=== PATIENT | female | born 1965 | race Asian ===

== ENCOUNTER 2022-03-07 09:42 | Outpatient (REF) | payer OTHER, SELFPAY ==
[2022-03-07 11:38] LABS: Hematocrit 39.2 % (37.0-47.0); Hemoglobin 12.6 g/dl (12.0-16.0); Mean Corpuscular HGB Conc 32.1 g/dl (31.0-35.0); Mean Corpuscular Hemoglobin 29.6 pg (27.0-33.0); Mean Corpuscular Volume 92.2 fL (80.0-98.0); Mean Platelet Volume 10.2 fL (9.4-12.3); Platelet Count 210 X10*3/uL (160-400); Red Blood Count 4.25 X10*6/uL (4.20-5.50); White Blood Count 3.5 X10*3/uL (4.8-10.8)
[2022-03-07 11:58] LABS: Alanine Aminotransferase 28 U/L (0-31); Albumin Level 4.1 g/dL (3.5-5.0); Alkaline Phosphatase 46 U/L (39-117); Anion Gap 12 (12-20); Aspartate Amino Transferase 24 U/L (5-31); Bilirubin Total 0.3 mg/dL (0.0-1.0); Blood Urea Nitrogen 15 mg/dL (9-16); Calcium 9.3 mg/dL (8.4-10.2); Carbon Dioxide 25 mmol/L (22-29); Chloride 108 mmol/L (96-108); Cholesterol 163 mg/dL; Estimated Glomerular Filt Rate > 60; Glucose Fasting 102 mg/dL (60-99); HDL Cholesterol 33 mg/dL; LDL Cholesterol Calculated 109 mg/dl; Potassium 3.9 mmol/L (3.3-5.1); Sodium 141 mmol/L (135-145); Total Protein 7.1 g/dL (6.5-8.0); Triglycerides 108 mg/dL
[2022-03-07 12:01] LABS: TSH reflex Free T4 1.41 uIU/mL (0.32-4.0)
== END 2022-03-07 09:43 | disposition home or self-care (01) ==
LOC: HO.WFDLDS 09:42
PROVIDERS: Visit Provider Hospitalist
DX: Z00.00 Encounter for general adult medical examination without abnormal findings (principal)
CPT/HCPCS: 36415; 80053; 80061; 84443; 85027

== ENCOUNTER 2022-09-20 09:05 | Outpatient (REF) | payer OTHER, SELFPAY ==
--- NOTE | ~2022-09-20 | MM_ITS ---
EXAMINATION: MM SCREENING DIGITAL BREAST TOMOSYNTHESIS, BILATERAL CLINICAL INFORMATION: Screening. Asymptomatic. Prior [id number] mammography currently unavailable. The lifetime risk of breast cancer based on the Tyrer-Cuzick Model is 3%. COMPARISON: None. TECHNIQUE: Digital breast tomosynthesis is performed in both the craniocaudal and mediolateral oblique views along with computer-aided detection (CAD). Synthesized 2D images are generated from the tomosynthesis. Additional exaggerated right CC view is provided. FINDINGS: The breasts are heterogeneously dense, which may obscure small masses (ACR BI-RADS breast composition Category c). There are no significant masses, abnormal calcifications, or other abnormalities. Breast tissue composition borders on average fibroglandular. No architectural abnormality. The axilla and skin contours are unremarkable. Radiology department staff will attempt to retrieve prior qde-ta-[id number] mammography to allow for comparison in an addendum report. MM/MM tomosynthesis screening BI IMPRESSION: No mammographic evidence of malignancy. ASSESSMENT: BI-RADS 1: Negative RECOMMENDATION: 1. Routine annual mammography screening. 2. Radiology department staff will attempt to retrieve prior tua-pv-[id number] mammography to allow for comparison in an addendum report. This patient's information was entered into a reminder system with a target due date for their next mammogram.
== END 2022-09-20 09:06 | disposition home or self-care (01) ==
LOC: HO.MAMMO 09:05
PROVIDERS: PCP Hospitalist; Visit Provider Hospitalist
DX: Z12.31 Encounter for screening mammogram for malignant neoplasm of breast (principal)
CPT/HCPCS: 77063; 77067

== ENCOUNTER 2023-02-08 09:55 | Outpatient (REF) | payer OTHER, SELFPAY ==
[2023-02-08 11:20] LABS: Hematocrit 38.6 % (37.0-47.0); Hemoglobin 12.5 g/dl (12.0-16.0); Mean Corpuscular HGB Conc 32.4 g/dl (31.0-35.0); Mean Corpuscular Hemoglobin 29.6 pg (27.0-33.0); Mean Corpuscular Volume 91.5 fL (80.0-98.0); Mean Platelet Volume 9.3 fL (9.4-12.3); Platelet Count 268 X10*3/uL (160-400); Red Blood Count 4.22 X10*6/uL (4.20-5.50); Red Cell Distribution Width 12.2 % (11.0-16.0); White Blood Count 4.9 X10*3/uL (4.8-10.8)
[2023-02-08 11:56] LABS: Alanine Aminotransferase 25 U/L (0-31); Albumin Level 4.1 g/dL (3.5-5.0); Alkaline Phosphatase 54 U/L (39-117); Anion Gap 13 (12-20); Aspartate Amino Transferase 22 U/L (5-31); Bilirubin Total 0.4 mg/dL (0.0-1.0); Blood Urea Nitrogen 22 mg/dL (9-16); Carbon Dioxide 24 mmol/L (22-29); Chloride 110 mmol/L (96-108); Estimated Glomerular Filt Rate > 60; Glucose Fasting 99 mg/dL (60-99); Potassium 3.8 mmol/L (3.3-5.1); Sodium 143 mmol/L (135-145); Total Protein 6.7 g/dL (6.5-8.0)
[2023-02-08 12:35] LABS: Troponin-I High Sensitivity < 3.5 ng/L (<3.5-17.0)
== END 2023-02-08 09:56 | disposition home or self-care (01) ==
LOC: HO.WFDLDS 09:55
PROVIDERS: Visit Provider Nurse Practitioner Family
DX: R07.9 Chest pain, unspecified (principal)
CPT/HCPCS: 36415; 80053; 84484; 85027

== ENCOUNTER → 2023-02-19 08:01 | Outpatient (REF) | payer OTHER, SELFPAY ==
--- NOTE | 2023-02-19 08:04 | CA_ITS ---
Acquisition Time: 2023-02-19 08:30:11 Total Exercise Time: 00:07:00 Test Indications: CP Medications: LOSARTAN OMEPRAZOLE DOXYCYCLINE Protocol: PILY Max HR: 144 BPM 89% of Pred: 161 BPM Max BP: 184/088 mmHG Max Work Load: 8.5 METS Exercise stress test with exercise 7 min of Pily protocol, achieving 82% MPHR, with mild sob, no chest discomfort, with isolated PACs and atrial cuplets, with normotensive response to exercise, with anteriolateral T wave abnormalities at baseline, without EKG changes of ischemia at peak achieved workload, then in recovery there are new T wave inversions inferiorly which are not seen at baseline - equivocal for ischemia. Test reviewed with Dr Short. Message sent to PCP and informed of test results with recommendation for an exercise nuclear stress test for further evaulation. Referred By: Isha Calvert Overread By: JEREMY DIAZ
== END ==
LOC: HO.CARD 08:01
PROVIDERS: PCP Hospitalist; Visit Provider Nurse Practitioner Family
DX: R07.9 Chest pain, unspecified (principal)
CPT/HCPCS: 93017

== ENCOUNTER → 2023-03-05 08:05 | Outpatient (REF) | payer OTHER, SELFPAY ==
--- NOTE | ~2023-03-05 | NM_ITS ---
EXERCISE MYOCARDIAL PERFUSION STUDY INDICATION: Abnormal stress test, assess for ischemia TECHNIQUE: The patient was brought in for an exercise perfusion study on 03/05/2023. Patient performed exercise as per Benito protocol and was injected 25 mCi of sestamibi once target heart rate was achieved. Images were obtained using the SPECT gamma camera interlaced with the gating device. Images were obtained in supine position. Resting perfusion study was performed on 03/06/2023. Patient was administered 25 mCi of sestamibi intravenously at rest. Images were then obtained in supine position. Images were processed with the software and compared side to side in short axis, horizontal long axis and vertical long axis views. Total DLP 87mGy-cm. FINDINGS: Raw images were reviewed. The stress perfusion study showed no significant perfusion abnormality. Both uncorrected as well as CT attenuation corrected images were reviewed. The gated study shows normal LV systolic function with calculated LVEF of 66%. LV cavity is normal in size. The gated study shows normal wall thickening and contraction of segments. Resting study shows no significant perfusion abnormality. Gating at rest reveals normal wall motion with ejection fraction at > 70%. The findings are consistent with no clear reversible or fixed perfusion abnormality. NM/NM cardiolite stress test IMPRESSION: 1. Myocardial perfusion imaging study shows normal myocardial perfusion. 2. Gated LVEF is 66% during stress and >70% during rest. 3. Transient ischemic dilatation not present. EKG component of the test reported separately.
--- NOTE | 2023-03-05 08:08 | CA_ITS ---
Acquisition Time: 2023-03-05 08:28:40 Total Exercise Time: 00:09:00 Test Indications: ABN ETT Medications: SEE H Protocol: PILY Max HR: 139 BPM 86% of Pred: 161 BPM Max BP: 178/088 mmHG Max Work Load: 10.1 METS Exercise stress test with exercise 9 min of Pily protocol, achieving 86% MPHR, with mild sob, no chest discomfort, with isolated PACs and atrial cuplets, with normotensive response to exercise, with baseline EKG showing nonspecific ST/ T wave abnormalities in leads III, aVF, V3-V6 without ischemic changes at peak exercise with return of baseline findings in recovery - nondiagnostic. Nuclear images pending. Test reviewed with Dr Barboza Referred By: Beba Loera Overread By: JEREMY DIAZ
== END ==
LOC: HO.CARD 08:05
PROVIDERS: Visit Provider Hospitalist
DX: R94.39 Abnormal result of other cardiovascular function study (principal)
CPT/HCPCS: 78452; 93017; A9500

== ENCOUNTER 2023-06-04 14:31 | Outpatient (AMB) | payer MEDICAID, SELFPAY ==
--- NOTE | 2023-06-04 14:38 | MHC.OFFVIS ---
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 Intake Note: New patient dx bradycardia per patient has history of HTN was told need to be clearances for colonoscopy had chest pain for doing new exercise which has gone away Adjunct Writing Instructor Required: Yes Adjunct Writing Instructor Name: daughter Eeg Tech: Eeg Tech Present Accompanied by: Daughter Allergies Iodine and Iodide Containing Produc Adverse Reaction (Mild, Verified 03/08/23 09:05) Hives Medication List - Last Reconciled 06/04/23 by Miguel Barboza MD bisacodyl (Dulcolax (bisacodyl)) 10 mg (2 x 5 mg) PO ONCE 1 day blood pressure monitor check bp daily and as needed for feeling off or headache losartan 100 mg PO DAILY omeprazole 20 mg PO DAILY 42 days polyethylene glycol 3350 (Miralax) 238 grams PO ONCE 1 day HPI HPI Comments History of Present Illness Details Mrs Morales was referred here for abnormal stress test and prior history of chest pain. Patient 58-year-old female with prior history of hypertension, in generally good shape. She is accompanied by her daughter Susana professor of criminal justice. Declined a certified professor of criminal justice. Patient few months ago was having retrosternal chest pain. Pain was described as sharp pressure. Pain was associated with exercise but usually in the recovery phase. P will then dissipate. She was also noted at that time to have hypertension. She was subsequently referred for stress test. Initial regular treadmill stress test was abnormal with baseline EKG changes which got worse with exercise. She subsequently underwent a myocardial perfusion imaging which was negative for myocardial ischemia. Since then for the last 4-6 weeks she has not had any recurrent chest pain. She thinks this might be musculoskeletal chest pain related to a fall with exercise. She is not doing that kind of exercise again. She continues to go up for walks and do other stretching exercises without any chest discomfort. Her EKG done in the office is suggestive hypertensive heart disease. She has not had a formal echocardiogram. She is currently taking losartan for high blood pressure blood pressure is better controlled. Denies any symptoms of shortness of breath, orthopnea, PND. No symptoms of palpitations, lightheadedness, syncope. She is scheduled to undergo colonoscopy in near future [facility] Medical History (Updated 06/04/23 @ 15:05 by Miguel Barboza MD) HTN (hypertension) Social History Housing: House Patient Tobacco Use Status: Never used Tobacco e-Cigarette/Vaping Use: Never Used service: No Current occupational status: retired Current occupational exposures/hazards: No Cognitive needs: No Hearing needs: No Vision needs: Yes Review of Systems Const Denies chills, Denies fatigue, Denies fever(s), Denies frequent falls, Denies weakness, Denies weight gain and Denies weight loss Eyes Denies loss of vision ENT Denies dizziness Card Denies chest pain, Denies leg edema, Denies lightheadedness, Denies palpitations, Denies dyspnea, Denies dyspnea on exertion, Denies orthopnea and Denies other (loss of consciousness) Resp Denies cough, Denies dyspnea, Denies dyspnea on exertion and Denies wheezing GI Denies hematochezia and Denies change in stool character Denies urinary frequency and Denies dysuria Musc Denies abnormal gait, Denies muscle weakness, Denies numbness, Denies radiating pain into limb and Denies tingling Skin/Breast Denies nail changes and Denies rash Neuro Denies Abnormal speech present, Denies abnormal gait, Denies dizziness, Denies frequent falls, Denies loss of vision, Denies memory loss, Denies numbness, Denies tingling and Denies weakness Psych Denies depression and Denies memory loss Endo Denies fatigue and Denies palpitations Rolly/Lymph Reports easy bruising and Reports other (anemia) Aller/Immun Denies wheezing Physical Exam Vital Signs: Last Vital Signs Pulse 70 06/04/23 14:39 BP 120/70 06/04/23 14:39 BMI result Body Mass Index 23.7 Const General: cooperative, comfortable, no acute distress, well developed, alert, awake and Physically active Nutritional Appearance: thin Orientation/consciousness: patient oriented x3 Limitations: no limitations HEENT Head: Yes normocephalic and Yes atraumatic Neck Neck: Yes trachea midline, Yes supple and Yes no JVD Resp Effort & Inspection: normal respiratory effort Auscultation: clear to auscultation bilaterally Cardio Jugular venous distension: no JVD Palpation: normal PMI Rate: regular rate Rhythm: regular rhythm Heart sounds: S1 normal heart sound present, S2 normal heart sound present, no click, no gallops, no murmurs and no rubs GI Auscultation: normal bowel sounds Skin General skin exam: no rashes or lesions noted Neuro General: patient oriented x3 and no focal motor deficits Speech: No Abnormal speech present Extrem General: Yes no clubbing, cyanosis or edema Assessment & Plan Assessment & Plan (1) Chest pain: Code(s): R07.9 - Chest pain, unspecified Plan: Patient with prior history of retrosternal/precordial chest pain. Could be musculoskeletal related to exercise. Also could be related hypertension and now the pain is dissipated since better control of her chest pain. Her myocardial perfusion imaging is negative and this rules out ischemic etiology of her chest pain. Good prognosis with this was discussed with the daughter. (2) HTN (hypertension): Code(s): I10 - Essential (primary) hypertension Plan: Hypertension which is currently well optimized continue current therapy. Importance of good blood pressure control in the long run to reduce cardiovascular risk was discussed. Continue low-salt diet. Given her baseline EKG suggestive hypertensive heart disease, would suggest echocardiogram to assess for hypertensive heart disease and associated diastolic dysfunction. (3) Preoperative cardiovascular examination: Code(s): Z01.810 - Encounter for preprocedural cardiovascular examination Plan: Patient scheduled for colonoscopy which is considered low risk procedure. A myocardial perfusion imaging was within normal limits. She has good exercise capacity. She is currently optimized to undergo the procedure with low risk for perioperative cardiovascular morbidity mortality. Will follow up in the clinic if need be. Thank you for allowing me to partake in the care Coding Level of Care Code New Pt Level 4 (29535) Diagnoses Chest pain R07.9 HTN (hypertension) I10 Preoperative cardiovascular examination Z01.810
[2023-06-04 14:39] VITALS: BP 120/70; PULSE 70; BMI 23.7
== END 2023-06-04 15:02 | disposition home or self-care (01) ==
PROVIDERS: PCP Hospitalist; Referring Provider Nurse Practitioner Family; Visit Provider Internal Medicine Cardiovascular Disease
DX: R07.9 Chest pain, unspecified (principal); I10 Essential (primary) hypertension; Z01.810 Encounter for preprocedural cardiovascular examination
CPT/HCPCS: 99204

== ENCOUNTER → 2023-06-04 14:31 | Outpatient (BNVA) | payer MEDICAID, SELFPAY | PROVIDERS: PCP Hospitalist; Referring Provider Nurse Practitioner Family; Visit Provider Internal Medicine Cardiovascular Disease | DX: R07.9 Chest pain, unspecified (principal); I10 Essential (primary) hypertension | CPT/HCPCS: 99202 ==

== ENCOUNTER 2023-06-21 07:36 | Day surgery (SDC) | payer OTHER, SELFPAY ==
[2023-06-18 15:36] VITALS: BMI 23.7
[2023-06-21] MEDS: Lactated Ringers 1,000 ML 50 ML IVCONT (08:18)
[2023-06-21 08:19] VITALS: BP 150/76; PULSE 55; RESP 18; TEMP 36.7; O2SAT 97
--- NOTE | 2023-06-21 08:43 | P.HPSUR_ITS ---
Pre-Procedural Eval Section A Date of Service: 06/21/23 Section B Chief Complaint: Personal hx of poylps Details of Present Illness: 58 y.o F with last colo 5y ago in [facility]. Currently no GI related sx. Cleared from Cardiology as well. Relevant Social History: None Present Medications: see Short Stay Collaborative assessment Allergies: Allergies Allergy/AdvReac Type Severity Reaction Status Date / Time Iodine and Iodide Containing AdvReac Mild Hives Verified 06/21/23 07:58 Produc Review of Systems Review of Systems Comment: Ten point ROS negative Exam Exam Comment: Gen appear: No acute distress HEENT: no icterus Chest: No overt resp distress Abd: soft, nontender, nondistended Psych: Stable affect, answering questions appropriately Neuro: A/Ox3 noted to move all extremities spontaneously Ext: no peripheral edema Plan Diagnosis/Plan: Unchanged I have reviewed the history and physical and performed a pertinent physical examination on my patient. No changes have occurred unless specified. Time Spent With Patient Time: Total time managing care of this patient today ____ minutes.
--- NOTE | 2023-06-21 08:45 | W.PM.OPN ---
Operative Note Operative Note Date of Service: 06/21/23 Narrative: Procedure: Colonoscopy Indication: Personal history of polyps Endoscopist: Rebecca Li MD Anesthesia Provider: Emelina Dalton MD Anesthesia type: MAC Instrument: Olympus [id number]-[id number] Consent: Indication, risks vs benefits, and alternatives were discussed with the patient who gave written informed consent to proceed. An channel cementer insole machine was utilized to assist with the consent. EKG, pulse, pulse oximetry and blood pressure were monitored throughout the procedure. Please see anesthesia flowsheet. Procedure: The patient was brought to the procedure room and placed in the left lateral decubitus position. IV medications were administered by the anesthesia provider in attendance. A digital rectal exam was performed which was normal. A distal attachment cap was affixed to the tip of the scope and the colonoscope was then inserted through the anus and advanced through the colon to the cecum at 80 cm. Mucosa was carefully examined under high definition white light as the instrument was slowly withdrawn in a retrograde panoramic fashion. Retroflexion was performed in rectum. The procedure was not difficult. There were no immediate obvious complications. The quality of the prep was BBPS: 2+3+3 = adequate Withdrawal time 12 minutes. Limitations: No limitations. Findings: Mucosa: Normal to cecum. Protruding lesions: 2 sessile polyp of size 4-7 mm in sigmoid colon. Cold snare polypectomy was performed. The polyps were completely removed and retrieved. Medium internal hemorrhoids without stigmata of recent bleeding. Impression: 1. Normal colon mucosa 2. Total of 2 polyps removed from sigmoid colon. 3. Internal hemorrhoids Recommendations: - Follow path results. - Repeat colonoscopy in 7-10 years if polyps are adenomas.
--- NOTE | 2023-06-21 09:10 | HO.ANESPROP2 ---
HPI - Anesthesia Eval Consult details Narrative: personal ho polyp cardic cleasance on chart negative nuclear stress; changes felt to be secondary to Htn disease, Htn now better controlled on meds PMFSH Active Problems Active Problems: All Active Problems (Updated 06/04/23 @ 15:05 by Miguel Barboza MD) Normal physical exam (Acute) Generalized arthritis (Acute) Lump in throat (Acute) Viral pharyngitis (Acute) Acne (Acute) Bilateral anterior knee pain (Acute) Hx of gastroesophageal reflux (GERD) (Acute) Anxiety as acute reaction to gross stress (Acute) Screening mammogram for breast cancer (Acute) Chest pain (Acute) Abnormal stress test (Acute) Muscular chest pain (Acute) Neck pain (Acute) HTN (hypertension) (Acute) Past Medical History Medical History HTN (hypertension) Family History Family history of problems with anesthesia: No Surgical History Surgical History (Updated 06/21/23 @ 07:58 by Verito Munoz RN) Hx of colonoscopy History of Problems with Anesthesia: No Social History Social History Housing: House Patient Tobacco Use Status: Never used Tobacco e-Cigarette/Vaping Use: Never Used Are you DNR?: No Advance Directives: No Advance Directives Information Provided: Yes Nutrition Risks: No Nutritional Risk service: No Current occupational status: retired Current occupational exposures/hazards: No Cognitive needs: No Hearing needs: No Vision needs: Yes Meds Allergies Allergy/AdvReac Type Severity Reaction Status Date / Time Iodine and Iodide Containing AdvReac Mild Hives Verified 06/21/23 07:58 Produc Active Medications: Current Medications Lactated Ringer's (Lr) 1,000 mls @ 50 mls/hr IVCONT .Q20H ANGEL Last Admin: 06/21/23 08:18 Dose: 50 mls/hr Exam Exam Date and Time: June 21, 2023 0910 Height,Weight and Vital Signs: Height 5 ft Weight 54.998 kg Last Vital Signs Temp 98.1 F 06/21/23 08:19 Pulse 55 06/21/23 08:19 Resp 18 06/21/23 08:19 BP 150/76 H 06/21/23 08:19 Pulse Ox 97 06/21/23 08:19 O2 Del Method Room Air 06/21/23 08:19 Airway Mallampati Class: I TM Dist: >3cm Neck ROM: Full Loose/Missing/Broken Teeth: No Heart: rr Lungs: cta Assessment and Plan Assessment Anesthesia Assessment: Anesthesia Plan Discussed and Chart Reviewed Final Anesthetic Review Family History of Problems with Anesthesia: No History of Problems with Anesthesia: No NPO: Yes ASA Class: II Final Preanesthetic Review: No Changes in Pt Med Stat, Meds/Allgs Chart Reviewed, Consent Obtained/Reviewed and Anes Risks/Benef Reviewed Patient Risk: Low Procedure Risk: Low Anesthetic Plan Anesthetic Plan: MAC: Disposition: Standard PACU
[2023-06-21 09:28] VITALS: BP 94/56; PULSE 50; RESP 16; TEMP 36.6; O2SAT 96
[2023-06-21 09:43] VITALS: BP 111/72; PULSE 51; RESP 18; TEMP 36.6; O2SAT 96
== END 2023-06-21 10:23 | disposition home or self-care (01) ==
PROVIDERS: PCP Hospitalist; Visit Provider Internal Medicine
PROC: 0DJD8ZZ Inspection of Lower Intestinal Tract, Via Natural or Artificial Opening Endoscopic (ICD-10-PCS; CPT 45378; principal; 2023-06-21 08:30)
DX: Z12.11 Encounter for screening for malignant neoplasm of colon (principal); Z86.010 Personal history of colon polyps; K63.5 Polyp of colon; K64.8 Other hemorrhoids; I10 Essential (primary) hypertension; R07.9 Chest pain, unspecified; Z79.899 Other long term (current) drug therapy; Z91.041 Radiographic dye allergy status
CPT/HCPCS: 45385; 88305

== ENCOUNTER → 2023-06-21 07:36 | Outpatient (BNV) | payer OTHER, SELFPAY | PROVIDERS: PCP Hospitalist; Visit Provider Internal Medicine | DX: Z12.11 Encounter for screening for malignant neoplasm of colon (principal); Z86.010 Personal history of colon polyps; D12.5 Benign neoplasm of sigmoid colon; K64.8 Other hemorrhoids | CPT/HCPCS: 45385 ==

== ENCOUNTER 2023-08-02 10:34 | Outpatient (AMB) | payer OTHER, SELFPAY ==
--- NOTE | 2023-08-02 10:52 | MHC.PC.OV ---
Vital Signs 08/02/23 10:53 Height 5 ft Weight 120 lb 4 oz BMI 23.5 BP 124/66 Blood Pressure Location Rt brachial Position Sitting Respiration 12 Pulse 67 Pulse Source Pulse Oximeter Temp 97.5 F Temp Source Temporal Artery Scan Pulse Oximetry (%) 99 Oxygen Delivery Method Room Air Intake Visit Reasons: PE Intake Note: Patient states that she fasted just incase she need bloodwork. Production Control Planner Required: Yes Production Control Planner Name: Daughter (Dixie) Accompanied by: Daughter Allergies Iodine and Iodide Containing Produc Adverse Reaction (Mild, Verified 08/02/23 11:22) Hives Medication List - Last Reconciled 08/02/23 by Isha Calvert CNP blood pressure monitor check bp daily and as needed for feeling off or headache losartan 100 mg PO DAILY Tobacco use date assessed: 03/08/23 Dental Screening Dental Screen Date: 08/02/23 Did you have a dental visit in the last 12 months?: Yes Did you have a dental problem in the last 6 months where you did not have access to dental care?: No Was dental information given to patient?: Patient has dentist HPI HPI Comments History of Present Illness Details 58-year-old Mandarin speaking female, accompanied by her daughter, presents for complete physical exam. She has history of hypertension and GERD. She is on losartan 100 mg daily which she notes she has been taking as prescribed. She requests an order for omeprazole. She offers no complaints and denies acute symptoms. She notes her last pap smear test was 3-4 years ago in [place]: normal. She notes she has never had shingrix vaccines. Her last mammogram was last August: Normal Her last colonoscopy was with [facility] on 06/21/2023 with the following results: Impression: 1. Normal colon mucosa 2. Total of 2 polyps removed from sigmoid colon. 3. Internal hemorrhoids Recommendations: - Follow path results. - Repeat colonoscopy in 7-10 years if polyps are adenomas. PFSH Medical History HTN (hypertension) Surgical History Hx of colonoscopy Social History Housing: House Patient Tobacco Use Status: Never used Tobacco e-Cigarette/Vaping Use: Never Used service: No Current occupational status: retired Current occupational exposures/hazards: No Cognitive needs: No Hearing needs: No Vision needs: No Questionnaire Thrive Questionnaire Date Thrive assessed: 08/02/23 I am a: Patient What is your living situation today?: I have a steady place to live Within the past 12 months, did the food you bought not last and you didn't have the money to get more?: Never true Within the past 12 months, did you worry whether your food would run out before you got money to buy more?: Never true Do you have trouble paying for medicines?: No Do you have trouble getting transportation to medical appointments?: No Do you have trouble paying your heating and electricity bill?: No Do you have trouble taking care of your child, family member or friend?: No Do you have trouble with day-to-day activities such as bathing, preparing meals, shopping, managing finances, etc.?: No Are you currently unemployed and looking for a job?: No Are you interested in more education?: No Please select the resources that you would like help with: None Currently or been in a relationship where the following occur: no concerns reported AUDIT C Alcohol Use Questionnaire (AUDIT-C) 1. How often do you have a drink containing alcohol?: Never 3. How often do you have six or more drinks on one occasion?: Never Total Score: 0 SAM-7 AMB Questionnaire SAM-7 Date SAM - 7 assessed: 09/06/22 Source: Developed by Drs. Rony Galan, Dunia Bailey, Ajay Richardson and colleagues, with an educational stefania from [employer]. Review of Systems Const Details: Denies chills, Denies fatigue, Denies fever(s), Denies headache(s) and Denies weakness HEENT Denies change in vision, Denies dizziness, Denies headache(s), Denies hearing loss, Denies nasal congestion, Denies sinus pain, Denies sinus pressure and Denies sore throat Card Denies chest pain, Denies lightheadedness, Denies dyspnea and Denies other (palpitations) Resp Denies cough, Denies dyspnea and Denies wheezing GI Denies abdominal pain, Denies melena, Denies hematochezia, Denies change in bowel habits, Denies dyspepsia and Denies nausea Denies hematuria and Denies dysuria Musc Denies abnormal gait, Denies myalgias, Denies arthralgias, Denies numbness and Denies tingling Skin/Breast Denies rash, Denies unusual bruising and Denies wounds Neuro Denies abnormal gait, Denies dizziness, Denies headache(s), Denies memory loss, Denies numbness, Denies Sensory deficit (Neuro), Denies tingling and Denies weakness Psych Denies anxiety, Denies depression and Denies memory loss Endo Denies cold intolerance, Denies fatigue, Denies heat intolerance, Denies polydipsia and Denies polyuria Rolly/Lymph Denies easy bleeding and Denies easy bruising Aller/Immun Denies wheezing Physical exam (Primary Care) Vital Signs: Last Vital Signs Temp 97.5 F 08/02/23 10:53 Pulse 67 08/02/23 10:53 Resp 12 08/02/23 10:53 BP 124/66 08/02/23 10:53 Pulse Ox 99 08/02/23 10:53 Oxygen Delivery Method Room Air 08/02/23 10:53 BMI result Body Mass Index 23.5 Tobacco/Smoking Status: Tobacco use Status Tobacco use date assessed 03/08/23 08/02/23 11:01 Patient Tobacco Use Status Never used Tobacco 08/02/23 11:01 e-Cigarette/Vaping Use Never Used 08/02/23 11:01 Thrive Assessment: Date of Thrive Assessment Date Thrive assessed 08/02/23 08/02/23 11:01 Currently or been in a relationship where the following occur: no concerns reported Const Other: General: no acute distress, well developed, alert and awake Nutritional Appearance: well nourished Orientation/consciousness: patient oriented x3 HENMT Head: Yes normocephalic and Yes atraumatic Ears: hearing grossly normal bilaterally and TM's normal bilaterally General nose exam: Normal external nose present and Normal nares present Mouth: Normal oral and palatal mucosa present and moist mucous membranes Teeth and gingiva: dentition normal Throat: Yes oropharynx normal Eyes Pupils: Equal, round and reactive pupils present and Pupil accommodation reflex normal EOM: EOMs intact bilaterally Neck Neck: Yes normal visual inspection, Yes no lymphadenopathy and Yes trachea midline Thyroid: Thyroid normal Carotids: no bruits Lymphatic: no lymphadenopathy noted Chest Chest palpation & inspection: normal inspection of the chest Resp Effort & Inspection: normal respiratory effort Auscultation: clear to auscultation bilaterally Cardio Rate: regular rate Rhythm: regular rhythm Heart sounds: S1 normal heart sound present, S2 normal heart sound present, no gallops, no murmurs and no rubs Bruits: no abdominal aortic bruits and no carotid bruits GI Palpation (GI): No Abdominal aortic bruit present, Soft to palpation, nontender, No hepatosplenomegaly present and No Rebound tenderness present Auscultation: normal bowel sounds General: Yes no CVA tenderness Back/Spine/Pelvis Back: no CVA tenderness Cervical Spine: cervical ROM normal and No Cervical spine tenderness Thoracic/Lumbar Spine: thoraco-lumbar ROM normal, No pain with thoraco-lumbar ROM, No thoracic spinal tenderness and No lumbar spinal tenderness Skin General: warm and dry. Normal skin color. Normal skin turgor Lesions: no lesions Rashes: no rashes Trauma: no lacerations or abrasions Wounds: no wounds Nails: normal Neuro General: patient oriented x3, gait normal and CN's II-XI intact bilaterally Cranial nerves: Yes Equal, round and reactive pupils present Cognition (Neuro): normal cognition Gait exam (Neuro): Normal gait present Motor exam (neuro): 5/5 motor strength present throughout Sensory Exam: No Sensory deficit (Neuro) Deep tendon reflexes (DTR's): Right patellar reflex intensity grade: 2+ and Left patellar reflex intensity grade: 2+ Extrem General: Yes normal to inspection, No edema and No calf tenderness Psych Appearance: grossly normal Affect: normal affect Attitude: cooperative Thought process: Normal thought process present Assessment and Plan Assessment & Plan (1) Normal physical exam: Code(s): Z00.00 - Encounter for general adult medical examination without abnormal findings Plan: Normal physical exam of a 58-year-old female No significant physical restrictions or limitations noted Previous lab results are her unremarkable Encouraged to follow-up for hypertension in 4 months Return sooner with symptoms or concerns Verbalized understanding and agreed with the treatment plan Interpretation by the patient's daughter per the patient's preference. (2) HTN (hypertension): Code(s): I10 - Essential (primary) hypertension Qualifiers: Hypertension type: primary hypertension Qualified Code(s): I10 - Essential (primary) hypertension Plan: Blood pressure is controlled, 124/66, within goal of less than 140/90 Losartan as prescribed Low-sodium diet encouraged Follow-up in 4 months or return sooner with symptoms or concerns Verbalized understanding and agreed with treatment plan. (3) Hx of gastroesophageal reflux (GERD): Code(s): Z87.19 - Personal history of other diseases of the digestive system Plan: No acute symptoms Omeprazole prescribed as requested Follow-up with symptoms or concerns Verbalized understanding and agreed with treatment plan. (4) Pap smear for cervical cancer screening: Code(s): Z12.4 - Encounter for screening for malignant neoplasm of cervix Plan: She notes her last pap smear test was 3-4 years ago in [place]: normal. Referred to [facility] chimney repairer for a pap smear test (5) Vaccine counseling: Code(s): Z71.85 - Encounter for immunization safety counseling Plan: She notes she has never had shingrix vaccines. Instructed on the importance of vaccination and encouraged to get vaccinated against shingles Verbalized understanding and agreed with treatment plan. Orders: Referrals W[facility]ING INSPECTOR Referral Z12.4 - Encounter for screening for malignant neoplasm of cervix Medications: Changed From omeprazole if able please print in manderin take on an empty stomach for 6 weeks may repeat course as needed 20 mg PO DAILY 42 days 42 tabs 1RF Z87.19 - Personal history of other diseases of the digestive system To omeprazole If able please print in mandarin take on an empty stomach 20 mg PO DAILY 30 days 30 tabs 3RF Z87.19 - Personal history of other diseases of the digestive system Refilled losartan 100 mg PO DAILY 90 tabs 1RF I10 - Essential (primary) hypertension Coding Level of Care Code Est Pt Prev Care 40-64y(89907) Diagnoses Normal physical exam Z00.00 Primary hypertension I10 Hypertension type: primary hypertension Hx of gastroesophageal reflux (GERD) Z87.19 Pap smear for cervical cancer screening Z12.4 Vaccine counseling Z71.85
[2023-08-02 10:53] VITALS: BP 124/66; PULSE 67; RESP 12; TEMP 36.4; O2SAT 99; BMI 23.5
== END 2023-08-02 11:48 | disposition home or self-care (01) ==
PROVIDERS: Visit Provider Nurse Practitioner Family
DX: Z00.00 Encounter for general adult medical examination without abnormal findings (principal); I10 Essential (primary) hypertension; Z87.19 Personal history of other diseases of the digestive system; Z12.4 Encounter for screening for malignant neoplasm of cervix; Z71.85 Encounter for immunization safety counseling
CPT/HCPCS: 99396

== ENCOUNTER 2024-04-25 08:11 | Outpatient (AMB) | payer OTHER, SELFPAY ==
--- NOTE | 2024-04-25 08:17 | MHC.OFFWIV ---
Intake Vital Signs 04/25/24 08:18 04/25/24 08:22 Height 5 ft Weight 111 lb 8 oz BMI 21.8 BP 148/82 H 142/78 H Blood Pressure Location Lt brachial Rt brachial Position Sitting Sitting Respiration 14 Pulse 66 Pulse Source Pulse Oximeter Temp 98.1 F Temp Source Oral Pulse Oximetry (%) 97 Oxygen Delivery Method Room Air Intake Visit Reasons: cough Intake Note: Cough, itching in the throat Patient Tobacco Use Status: Never used Tobacco Accompanied by: Daughter Allergies Iodine and Iodide Containing Produc Adverse Reaction (Mild, Verified 04/25/24 08:40) Hives Medication List - Last Reconciled 04/25/24 by Uzma Pruett, [facility]- blood pressure monitor check bp daily and as needed for feeling off or headache losartan 100 mg PO DAILY omeprazole 20 mg PO DAILY 30 days Do you need a note to return to daycare/school/sports/work: No HPI HPI Comments History of Present Illness Details Here today with c/o cough started 2 days ago, worse last night itchy throat dry cough body ache headache Denies fever, sick contacts, travel, seasonal allergies. Tried cough syrup w/o relief. [facility] Medical History HTN (hypertension) Surgical History Hx of colonoscopy Social History Housing: House Patient Tobacco Use Status: Never used Tobacco e-Cigarette/Vaping Use: Never Used service: No Current occupational status: retired Current occupational exposures/hazards: No Cognitive needs: No Hearing needs: No Vision needs: No Review of Systems Const All systems reviewed & are unremarkable except as noted in HPI and below Physical Exam Vital Signs: Last Vital Signs Temp 98.1 F 04/25/24 08:18 Pulse 66 04/25/24 08:18 Resp 14 04/25/24 08:18 BP 142/78 H 04/25/24 08:22 Pulse Ox 97 04/25/24 08:18 Oxygen Delivery Method Room Air 04/25/24 08:18 BMI result Body Mass Index 21.8 Const Other: Awake alert NAD Sclera and conjunctiva clear bilat Nares patent, turbinates within normal limits, no sinus tenderness with palpation bilat Cerumen impaction bilat unable to see TM MMM, pharynx WNL RRR LS CTAB Results AMB Rapid Strep AMB Rapid Strep Negative Last Edit by Lisa Noguera CMA on 04/25/24 10:06 Results Reviewed Results Reviewed: Laboratory Last Values Strep Scn Rapid Clinic Negative 04/25/24 10:05 Assessment & Plan Assessment & Plan (1) Impacted cerumen, bilateral: Code(s): H61.23 - Impacted cerumen, bilateral (2) Allergic pharyngitis: Code(s): J02.9 - Acute pharyngitis, unspecified Plan: . Plan . This note is constructed using voice recognition software. While every effort has been made to ensure accuracy in fixed income manager, still errors may have been included Sometimes, these errors may affect the content or meaning of the given sentence . Total time spent caring for the patient today was 45 minutes. This includes time spent before the visit reviewing the chart, time spent during the visit, and time spent after the visit on documentation Orders: Orders AMB Rapid Strep Screen Today Z13.9 - Encounter for screening, unspecified Medications: New carbamide peroxide 6.5% (Debrox) 5 drps otic (ears) DAILY 5 days 15 mL 0RF BILAT EARS cetirizine (Zyrtec) 10 mg PO DAILY 30 tabs 0RF benzonatate 100 mg PO TID 10 days PRN 30 caps 1RF cough Patient Instructions: Treat for allergic pharyngitis with antihistamine. Treat cough with Tessalon. If continues to feel sick or symptoms worsen, advised to return to the office. Otherwise advised to use Debrox and then returned to the office in 1 week for an ear lavage. Earwax (Cerumen Impaction) Created in Ears Earwax, called cerumen, is produced by special wax-forming glands located in the skin of the outer one-third of the ear canal. It is normal to have cerumen in ear canal as this waxy substance serves as a self-cleaning agent with protective, lubricating, and antibacterial properties. The absence of earwax may result in dry, itchy ears. Self-cleaning means there is a slow and mortgage loan processing clerk movement of earwax and skin cells from the eardrum to the ear opening. Old earwax is constantly being transported, assisted by chewing and jaw motion, from the ear canal to the ear opening where, most of the time, it dries, flakes, and falls out. What Are the Symptoms of an Earwax Blockage? Symptoms of an earwax problem may include: Earache Feeling of plugged hearing or fullness in the ear Partial hearing loss that gets worse Tinnitus, ringing, or noises in the ear Itching, odor, or discharge Coughing Pain Infection What Causes Earwax Blockage? When a patient has wax blockage against the eardrum, it is often because they have been probing the ear with such things as cotton-tipped swabs, john paul pins, or twisted napkin corners. These objects only push the wax in deeper in the ear canal. Why Is It Dangerous to Use Swabs to Remove Earwax? Wax blockage is one of the most common causes of hearing loss. This is often caused by attempts to clean the ear with cotton swabs. Most cleaning attempts merely push the wax deeper into the ear canal which is shaped like an hourglass, causing a blockage at the narrowing part of the ear canal. In addition, accidental trauma to the ear drum or ear bones can occur if the swab is pushed too deep. Good intentions to keep ears clean may lessen the ability to hear. The ear is a delicate and complicated body part, including the skin of the ear canal and the eardrum. Therefore, special care should be given to this part of the body. Discontinue the habit of inserting cotton-tipped swabs or other objects into the ear canals. What Are the Treatment Options? Cleaning a working ear can be done by washing it with a soft cloth, but do not insert anything into the ear. Ideally, the ear canals should never have to be cleaned. However, that isn?t always the case. The ears should be cleaned when enough earwax gathers to cause symptoms or to prevent a needed assessment of the ear by your doctor. This condition is call cerumen impaction. Most cases of ear wax blockage respond to home treatments used to soften wax. Patients can try placing a few drops of mineral oil, baby oil, glycerin, or commercial drops in the ear. Detergent drops such as hydrogen peroxide or carbamide peroxide (available in most pharmacies) may also aid in the removal of wax. Irrigation or ear syringing is commonly used for cleaning and can be performed by a physician or at home using a commercially available irrigation kit. Common solutions used for syringing include water and saline, which should be warmed to body temperature to prevent dizziness. Ear syringing is most effective when water, saline, or wax dissolving drops are put in the ear canal 15 to 30 minutes before treatment. Caution is advised to avoid having your ears irrigated if you have diabetes, a hole in the eardrum (perforation), tube in the eardrum, skin problems such as eczema in the ear canal or a weakened immune system. >> If you have been prescribed Debrox, use as directed for 5 nights and return to the office on Day 6 for an ear lavage to remove the wax<< Manual removal of earwax is also effective. This is most often performed by an ENT (ear, nose, and throat) specialist, or driver wheelchair, using suction or special miniature instruments, and a microscope to magnify the ear canal. Manual removal is preferred if your ear canal is narrow, the eardrum has a perforation or tube, other methods have failed, or if you have skin problems affecting the ear canal, diabetes or a weakened immune system. When Should I Talk to a Doctor? If home treatments do not help, or if wax has accumulated so much that it blocks your ear canal and your ability to hear, an ENT specialist may prescribe eardrops designed to soften wax, or they may wash or vacuum it out. Your ENT specialist may also need to remove the wax under microscopic visualization. If there is a possibility of a perforation in the eardrum, consult a physician prior to trying any [id number] remedies. Putting eardrops or other products in the ear with the presence of an eardrum perforation may cause pain or an infection. Washing water through such a hole could start an infection. If you are prone to repeated wax impaction or use hearing aids, consider seeing your doctor every six to 12 months for a checkup and routine preventive cleaning. What Questions Should I Ask My Doctor? What are the benefits and risks/side effects of different cerumen removal management options: earwax softening products, water irrigation vs. physical removal? Does cerumen accumulation vary with age, gender, familial or dietary intake? How do I manage swimming underwater with cerumen impaction? Should anything be done to the ears to prevent a buildup of earwax? How often should cerumen be removed from the ears? Are ear candles a safe option for removing earwax? Coding Level of Care Code Est Pt Level 5 (30502) Diagnoses Impacted cerumen, bilateral H61.23 Allergic pharyngitis J02.9
[2024-04-25 08:18] VITALS: BP 148/82; PULSE 66; RESP 14; TEMP 36.7; O2SAT 97; BMI 21.8
[2024-04-25 08:22] VITALS: BP 142/78
== END 2024-04-25 09:24 | disposition home or self-care (01) ==
PROVIDERS: PCP Nurse Practitioner Family; Visit Provider Nurse Practitioner Family
DX: H61.23 Impacted cerumen, bilateral (principal); J02.9 Acute pharyngitis, unspecified
CPT/HCPCS: 87880; 99215

== ENCOUNTER 2024-05-05 08:29 | Outpatient (AMB) | payer OTHER, SELFPAY ==
--- NOTE | 2024-05-05 08:35 | A.OFFPC_ITS ---
Vital Signs 05/05/24 08:38 Height 5 ft Weight 114 lb 2 oz BMI 22.3 BP 120/72 Blood Pressure Location Rt brachial Position Sitting Respiration 12 Pulse 69 Pulse Source Pulse Oximeter Temp 97.4 F Temp Source Oral Pulse Oximetry (%) 97 Oxygen Delivery Method Room Air Intake Visit Reasons: One week f/u for bilat ear lavage Intake Note: F/U for ear lavage Accompanied by: Daughter Allergies Iodine and Iodide Containing Produc Adverse Reaction (Mild, Verified 05/05/24 08:36) Hives Medication List - Last Reconciled 05/05/24 by Uzma Pruett, [facility] blood pressure monitor check bp daily and as needed for feeling off or headache carbamide peroxide 6.5% (Debrox) 5 drps otic (ears) DAILY 5 days cetirizine (Zyrtec) 10 mg PO DAILY losartan 100 mg PO DAILY omeprazole 20 mg PO DAILY 30 days Tobacco use date assessed: 05/05/24 Dental Screening Dental Screen Date: 05/05/24 Did you have a dental visit in the last 12 months?: Yes Did you have a dental problem in the last 6 months where you did not have access to dental care?: No Was dental information given to patient?: Patient has dentist HPI HPI Comments History of Present Illness Details Here today to f/u since last office visit her sx have resolved w/ use of tessalon and zyrtec was able to use debrox and needs lavage bilat [facility] Medical History HTN (hypertension) Surgical History Hx of colonoscopy Social History Housing: House Patient Tobacco Use Status: Never used Tobacco e-Cigarette/Vaping Use: Never Used service: No Current occupational status: retired Current occupational exposures/hazards: No Cognitive needs: No Hearing needs: No Vision needs: No Questionnaire Thrive Questionnaire Date Thrive assessed: 08/02/23 AUDIT C Alcohol Use Questionnaire (AUDIT-C) 1. How often do you have a drink containing alcohol?: Never Total Score: 0 SAM-7 AMB Questionnaire SAM-7 Date SAM - 7 assessed: 09/06/22 Source: Developed by Drs. Rony Galan, Dunia Bailey, Ajay Richardson and colleagues, with an educational stefania from [employer]. Review of Systems Const All systems reviewed & are unremarkable except as noted in HPI and below Physical exam (Primary Care) Vital Signs: Last Vital Signs Temp 97.4 F 05/05/24 08:38 Pulse 69 05/05/24 08:38 Resp 12 05/05/24 08:38 BP 120/72 05/05/24 08:38 Pulse Ox 97 05/05/24 08:38 Oxygen Delivery Method Room Air 05/05/24 08:38 BMI result Body Mass Index 22.3 Tobacco/Smoking Status: Tobacco use Status Tobacco use date assessed 05/05/24 05/05/24 08:41 Patient Tobacco Use Status Never used Tobacco 05/05/24 08:41 e-Cigarette/Vaping Use Never Used 05/05/24 08:41 Thrive Assessment: Date of Thrive Assessment Date Thrive assessed 08/02/23 05/05/24 08:41 Const Other: TM intact bilat s/p lavage. + effusions bilat. EAC clear s/p lavage. Office Procedures Cerumen Removal From which ear canal was the cerumen removed: bilateral Removal: irrigation and cerumen loop/spoon Notes: patient tolerated procedure well, no complications and ear canal clear [id number] Irrigation/Lavage Assessment and Plan Assessment & Plan (1) Impacted cerumen, bilateral: Code(s): H61.23 - Impacted cerumen, bilateral (2) Eustachian tube dysfunction: Code(s): H69.90 - Unspecified Eustachian tube disorder, unspecified ear Qualifiers: Laterality: bilateral Qualified Code(s): H69.93 - Unspecified Eustachian tube disorder, bilateral Medications: New fluticasone propionate 50 mcg/actuation administer into each nostril 1 spray intranasal BID 16 grams 0RF Patient Instructions: use flonase as directed Coding Level of Care Code Est Pt Level 4 (14538) Diagnoses Impacted cerumen, bilateral H61.23 Dysfunction of both eustachian tubes H69.93 Laterality: bilateral CPT Codes Office Procedure - CPT: 02438-Mda Irrigation/Lavage ([id number])
[2024-05-05 08:38] VITALS: BP 120/72; PULSE 69; RESP 12; TEMP 36.3; O2SAT 97; BMI 22.3
== END 2024-05-05 09:56 | disposition home or self-care (01) ==
PROVIDERS: PCP Nurse Practitioner Family; Visit Provider Nurse Practitioner Family
DX: H69.93 Unspecified Eustachian tube disorder, bilateral (principal); H61.23 Impacted cerumen, bilateral
CPT/HCPCS: 69210; 99214

== ENCOUNTER 2024-08-04 08:37 | Outpatient (AMB) | payer OTHER, SELFPAY ==
--- NOTE | 2024-08-04 08:49 | MHC.PC.OV ---
Vital Signs 08/04/24 08:53 Height 5 ft 1.42 in Weight 112 lb 6 oz BMI 20.9 BP 138/76 Blood Pressure Location Lt brachial Position Sitting Respiration 14 Pulse 57 Pulse Source Pulse Oximeter Temp 98.3 F Temp Source Oral Pulse Oximetry (%) 96 Oxygen Delivery Method Room Air Intake Visit Reasons: Transfer of Care from [facility] V/PE request Intake Note: New patient visit, transfer of care Wrapper Sorter Required: Yes Wrapper Sorter Name: Dixie, daughter Allergies Iodine and Iodide Containing Produc Adverse Reaction (Mild, Verified 08/04/24 08:50) Hives Tobacco use date assessed: 05/05/24 Dental Screening Dental Screen Date: 05/05/24 Did you have a dental visit in the last 12 months?: Yes Did you have a dental problem in the last 6 months where you did not have access to dental care?: No Was dental information given to patient?: Patient has dentist HPI HPI Comments History of Present Illness Details 59-year-old Mandarin speaking female, accompanied by her daughter, presents for complete physical exam. 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 Denies chest pain, shortness of breath. Had prior cardiology consult and normal stress test GERD: Quiet. Previously on omeprazole She notes she has never had shingrix vaccines. Her last mammogram was last August 2022. Normal. due Pap is overdue Her last colonoscopy was with [facility] on 06/21/2023 with the following results: Impression: 1. Normal colon mucosa 2. Total of 2 polyps removed from sigmoid colon. 3. Internal hemorrhoids Recommendations: - Follow path results. - Repeat colonoscopy in 7-10 years if polyps are adenomas. ROS CONSTITUTIONAL: Denies weight loss, fever and chills. HEENT: Denies changes in vision and hearing. RESPIRATORY: Denies SOB and cough. CV: Denies palpitations and CP GI: Denies abdominal pain, nausea, vomiting and diarrhea. : Denies dysuria and urinary frequency. MSK: Denies new myalgia and joint pain. SKIN: Denies rash and pruritus. NEUROLOGICAL: Denies headache PSYCHIATRIC: Denies recent changes in mood. PHYSICAL EXAM: GENERAL: Alert and oriented x 3. NAD EYES: EOMI. Anicteric. HENT: Moist mucous membranes. No scleral icterus. No cervical lymphadenopathy. LUNGS: Clear to auscultation bilaterally. CARDIOVASCULAR: Regular rate and rhythm. No murmur. No JVD. ABDOMEN: Soft, non-tender +bs EXTREMITIES: No edema. Non-tender. SKIN: No rashes or lesions. Warm. NEUROLOGIC: No focal neurological deficits. CN II-XII grossly intact PSYCHIATRIC: Cooperative. Appropriate mood and affect [facility] Medical History HTN (hypertension) Surgical History Hx of colonoscopy Social History Housing: House Patient Tobacco Use Status: Never used Tobacco e-Cigarette/Vaping Use: Never Used service: No Current occupational status: retired Current occupational exposures/hazards: No Cognitive needs: No Hearing needs: No Vision needs: No Questionnaire PHQ-9 Over the last 2 weeks, how often have you been bothered by any of the following problems? 1. Little interest or pleasure in doing things: several days 2. Feeling down, depressed, or hopeless: several days 3. Trouble falling or staying asleep, or sleeping too much: not at all 4. Feeling tired or having little energy: not at all 5. Poor appetite or overeating: not at all 6. Feeling bad about yourself - or that you are a failure or have let yourself or your family down: not at all 7. Trouble concentrating on things, such as reading the newspaper or watching television: not at all 8. Moving or speaking so slowly that other people could have noticed. Or the opposite - being so fidgety or restless that you have been moving around a lot more than usual: not at all 9. Thoughts that you would be better off or of hurting yourself in some way: not at all Total score: 2 Depression Screening Interpretation: Negative Depression Screening Done: Yes Source: Developed by Drs. Rony Galan, Dunia Bailey, Ajay Richardson and colleagues, with an educational stefania from [employer]. Thrive Questionnaire Date Thrive assessed: 08/02/23 I am a: Patient What is your living situation today?: I have a steady place to live Within the past 12 months, did the food you bought not last and you didn't have the money to get more?: Never true Within the past 12 months, did you worry whether your food would run out before you got money to buy more?: Never true Do you have trouble paying for medicines?: No Do you have trouble getting transportation to medical appointments?: No Do you have trouble paying your heating and electricity bill?: No Do you have trouble taking care of your child, family member or friend?: No Do you have trouble with day-to-day activities such as bathing, preparing meals, shopping, managing finances, etc.?: No Are you currently unemployed and looking for a job?: No Are you interested in more education?: No Please select the resources that you would like help with: None Currently or been in a relationship where the following occur: No concerns reported THRIVE Score: 0 AUDIT C Alcohol Use Questionnaire (AUDIT-C) 1. How often do you have a drink containing alcohol?: Never 3. How often do you have six or more drinks on one occasion?: Never Total Score: 0 SAM-7 AMB Questionnaire SAM-7 Date SAM - 7 assessed: 09/06/22 Feeling nervous, anxious, or on edge: 1 = Several days Not being able to stop or control worryin = Several days Worrying too much about different things: 0 = Not at all Trouble relaxin = Not at all Being so restless that it is hard to sit still: 0 = Not at all Becoming easily annoyed or irritable: 0 = Not at all Feeling afraid as if something awful might happen: 1 = Several days Total SAM-7 score (0-4 normal; 5-9 mild; 10-14 moderate; 15-21 severe): 3 Source: Developed by Drs. Rony Galan, Dunia Bailey, Ajay Richardson and colleagues, with an educational stefania from [employer]. Physical exam (Primary Care) Vital Signs: Last Vital Signs Temp 98.3 F 08/04/24 08:53 Pulse 57 08/04/24 08:53 Resp 14 08/04/24 08:53 BP 138/76 08/04/24 08:53 Pulse Ox 96 08/04/24 08:53 Oxygen Delivery Method Room Air 08/04/24 08:53 BMI result Body Mass Index 20.9 Tobacco/Smoking Status: Tobacco use Status Tobacco use date assessed 05/05/24 08/04/24 08:58 Patient Tobacco Use Status Never used Tobacco 08/04/24 08:58 e-Cigarette/Vaping Use Never Used 08/04/24 08:58 PHQ-9: PHQ-9 Score PHQ-9: Total score 2 08/04/24 08:58 Depression Screening Interpretation: Negative Thrive Assessment: Date of Thrive Assessment Date Thrive assessed 08/02/23 08/04/24 08:58 Currently or been in a relationship where the following occur: No concerns reported Assessment and Plan Assessment & Plan (1) Normal physical exam: Code(s): Z00.00 - Encounter for general adult medical examination without abnormal findings Plan: Preventive measures for age discussed mammo dxa ordered refer manager title for pap Labs ordered (2) HTN (hypertension): Code(s): I10 - Essential (primary) hypertension Qualifiers: Hypertension type: primary hypertension Qualified Code(s): I10 - Essential (primary) hypertension Plan: controlled on current medication which will be continued Orders: Orders MM screening mammo BI Today Z12.31 - Encounter for screening mammogram for malignant neoplasm of breast Lipid Panel Today I10 - Essential (primary) hypertension, Z13.0 - Encounter for screening for diseases of the blood and blood-forming organs and certain disorders involving the immune mechanism, Z13.220 - Encounter for screening for lipoid disorders Complete Blood Count Auto Diff Today I10 - Essential (primary) hypertension, Z13.0 - Encounter for screening for diseases of the blood and blood-forming organs and certain disorders involving the immune mechanism, Z13.220 - Encounter for screening for lipoid disorders Comprehensive Met. Panel Today I10 - Essential (primary) hypertension, Z13.0 - Encounter for screening for diseases of the blood and blood-forming organs and certain disorders involving the immune mechanism, Z13.220 - Encounter for screening for lipoid disorders XR DEXA axial skeleton Today M89.9 - Disorder of bone, unspecified, M94.9 - Disorder of cartilage, unspecified Referrals DIRECTOR OF CURRICULUM Referral Z12.4 - Encounter for screening for malignant neoplasm of cervix Medications: Refilled losartan 100 mg PO DAILY 90 tabs 3RF I10 - Essential (primary) hypertension Coding Level of Care Code Est Pt Prev Care 40-64y(43965) Diagnoses Normal physical exam Z00.00 Primary hypertension I10 Hypertension type: primary hypertension
[2024-08-04 08:53] VITALS: BP 138/76; PULSE 57; RESP 14; TEMP 36.8; O2SAT 96; BMI 20.9
== END 2024-08-04 09:11 | disposition home or self-care (01) ==
PROVIDERS: PCP Internal Medicine; Visit Provider Internal Medicine
DX: Z00.00 Encounter for general adult medical examination without abnormal findings (principal); I10 Essential (primary) hypertension
CPT/HCPCS: 99396

== ENCOUNTER 2024-08-04 09:21 | Outpatient (REF) | payer OTHER, SELFPAY ==
[2024-08-04 11:11] LABS: MANUAL DIFF FLAG NO
[2024-08-04 11:46] LABS: Basophils Percent Auto 0.5 % (0-2); Eosinophils Percent Auto 0.5 % (0-4); Hematocrit 39.3 % (37.0-47.0); Hemoglobin 12.9 g/dl (12.0-16.0); Imm Gran Abs Auto 0.01 X10*3/uL (0.00-0.03); Imm Gran Pct Auto 0.2 % (0.0-0.4); Lymphocytes Absolute Auto 1.4 X10*3/uL (1.2-4.9); Lymphocytes Percent Auto 32.4 % (20-40); Mean Corpuscular HGB Conc 32.8 g/dl (31.0-35.0); Mean Corpuscular Hemoglobin 30.5 pg (27.0-33.0); Mean Corpuscular Volume 92.9 fL (80.0-98.0); Mean Platelet Volume 9.7 fL (9.4-12.3); Monocytes Absolute Auto 0.2 X10*3/uL (0.1-1.2); Monocytes Percent Auto 5.7 % (2-11); Neutrophils Absolute Auto 2.6 x10*3/uL (2.0-8.3); Neutrophils Percent Auto 60.7 % (45-73); Platelet Count 235 X10*3/uL (160-400); Red Blood Count 4.23 X10*6/uL (4.20-5.50); Red Cell Distribution Width 12.3 % (11.0-16.0); White Blood Count 4.2 X10*3/uL (4.8-10.8)
[2024-08-04 12:31] LABS: Alanine Aminotransferase 26 U/L (0-31); Albumin Level 4.2 g/dL (3.5-5.0); Alkaline Phosphatase 55 U/L (39-117); Anion Gap 11 (12-20); Aspartate Amino Transferase 23 U/L (5-31); Bilirubin Total 0.4 mg/dL (0.0-1.0); Blood Urea Nitrogen 18 mg/dL (9-16); Calcium 9.6 mg/dL (8.4-10.2); Carbon Dioxide 27 mmol/L (22-29); Chloride 109 mmol/L (96-108); Cholesterol 207 mg/dL (<200); Estimated Glomerular Filt Rate > 60; Glucose Random 100 mg/dL (60-115); HDL Cholesterol 49 mg/dL (>40); LDL Cholesterol Calculated 143 mg/dL (<100); Potassium 4.1 mmol/L (3.3-5.1); Sodium 143 mmol/L (135-145); Total Protein 7.1 g/dL (6.5-8.0); Triglycerides 78 mg/dL (<150)
== END 2024-08-04 09:22 | disposition home or self-care (01) ==
LOC: HO.WFDLDS 09:21
PROVIDERS: Visit Provider Internal Medicine
DX: I10 Essential (primary) hypertension (principal); Z13.220 Encounter for screening for lipoid disorders; Z13.0 Encounter for screening for diseases of the blood and blood-forming organs and certain disorders involving the immune mechanism
CPT/HCPCS: 36415; 80053; 80061; 85025

== ENCOUNTER 2024-08-12 08:43 | Outpatient (AMB) | payer OTHER, SELFPAY ==
--- NOTE | 2024-08-12 08:44 | AM.OFFWIN_ITS ---
Intake Vital Signs 08/12/24 08:51 Height 5 ft 1 in Weight 113 lb BMI 21.3 BP 140/78 H Blood Pressure Location Lt brachial Position Sitting Pulse 16 L Pulse Source Pulse Oximeter Temp 97.5 F Temp Source Oral Pulse Oximetry (%) 97 Oxygen Delivery Method Room Air Intake Visit Reasons: Rash on both legs Intake Note: patient here c/o rash on both legs for about a week. Patient Tobacco Use Status: Never used Tobacco Is last menstrual period known: No Post menopausal: No Patient : No Allergies Iodine and Iodide Containing Produc Adverse Reaction (Mild, Verified 08/12/24 08:57) Hives Medication List - Last Reconciled 08/12/24 by Isha Calvert CNP blood pressure monitor check bp daily and as needed for feeling off or headache losartan 100 mg PO DAILY Do you need a note to return to daycare/school/sports/work: No HPI HPI Comments History of Present Illness Details 59-year-old Mandarin speaking female, ac companied by her daughter, presents with complaints of a rash on both legs for almost a week. She notes that the rash is mildly itchy, begins from her upper thighs down to her ankles. She started using Benadryl cream yesterday. No respiratory issues. She denies tub showers or shaving of her legs. [facility] Medical History HTN (hypertension) Surgical History Hx of colonoscopy Social History Housing: House Patient Tobacco Use Status: Never used Tobacco e-Cigarette/Vaping Use: Never Used service: No Current occupational status: retired Current occupational exposures/hazards: No Cognitive needs: No Hearing needs: No Vision needs: No Review of Systems Const Details: Const Denies chills, Denies fatigue, Denies fever(s), Denies headache(s) and Denies weakness ENT Denies change in vision, Denies dizziness, Denies headache(s), Denies hearing loss, Denies nasal congestion, Denies sinus pain, Denies sinus pressure and Denies sore throat Resp Denies cough, Denies dyspnea, Denies wheezing and Denies other (shortness of breath) Cardio Denies chest pain, Denies lightheadedness, Denies dyspnea and Denies other (palpitations) Neuro Denies dizziness, Denies headache(s), Denies numbness, Denies tingling and Denies weakness Skin Reports as per HPI Endo Denies fatigue Aller/Immun Denies wheezing Physical Exam Const Other: Const General: well developed; No acute distress Nutritional Appearance: well nourished Orientation/consciousness: patient oriented x3 HEENT Head: Yes normocephalic and Yes atraumatic Eyes General: appearance normal, both eyes and all related structures Pupils: Equal, round and reactive pupils present EOM: EOMs intact bilaterally Resp Effort & Inspection: normal respiratory effort Auscultation: clear to auscultation bilaterally Cardio Rate: regular rate Rhythm: regular rhythm Heart sounds: S1 normal heart sound present, S2 normal heart sound present, no gallops, no murmurs and no rubs Bruits: no abdominal aortic bruits and no carotid bruits Skin Slightly red widespread papular from her upper thighs to ankles, follicular patterns, no pustular head or drainage Neuro General: patient oriented x3 and gait normal, no focal neuro deficit Cranial nerves: Yes Equal, round and reactive pupils present Psych Affect: normal affect Assessment & Plan Assessment & Plan (1) Rash: Code(s): R21 - Rash and other nonspecific skin eruption Plan: Mildly itchy rash to her legs for almost 1 week Slightly red widespread papular from her upper thighs to ankles, follicular patterns, no pustular head or drainage Cephalexin 500 mg twice daily ordered. Advised to take as prescribed. Instructed on the risks, benefits, and potential adverse reactions of the medication May take Benadryl 25 mg twice daily as needed or 50 mg at bedtime as needed May use Hibiclens twice weekly before showers Follow-up with worsening or new signs and symptoms Verbalized understanding and agreed with treatment plan Medications: New 2 cephalexin 500 mg PO BID 7 days 14 tabs 0RF Coding Level of Care Code Est Pt Level 3 (79850) Diagnoses Rash R21
[2024-08-12 08:51] VITALS: BP 140/78; PULSE 16; TEMP 36.4; O2SAT 97; BMI 21.3
== END 2024-08-12 09:24 | disposition home or self-care (01) ==
PROVIDERS: PCP Internal Medicine; Visit Provider Nurse Practitioner Family
DX: R21 Rash and other nonspecific skin eruption (principal)

== ENCOUNTER → 2024-08-12 08:43 | Outpatient (BNVA) | payer OTHER, SELFPAY | PROVIDERS: PCP Internal Medicine | DX: R21 Rash and other nonspecific skin eruption (principal) | CPT/HCPCS: 99212 ==

== ENCOUNTER 2024-10-08 08:37 | Outpatient (REF) | payer OTHER, SELFPAY ==
--- NOTE | ~2024-10-08 | MM_ITS ---
EXAMINATION: MM SCREENING DIGITAL BREAST TOMOSYNTHESIS, BILATERAL CLINICAL INFORMATION: Screening. Asymptomatic. COMPARISON: Mammography: Comparison is made with available priors TECHNIQUE: Digital breast mammography with tomosynthesis is performed in both the craniocaudal and mediolateral oblique views along with computer-aided detection (CAD). FINDINGS: The breasts are heterogeneously dense, which may obscure small masses (ACR BI-RADS breast composition Category c). There are no significant masses, abnormal calcifications, or other abnormalities. MM/MM tomosynthesis screening BI IMPRESSION: No mammographic evidence of malignancy. ASSESSMENT: BI-RADS BI-RADS 1 - Negative RECOMMENDATION: Routine annual mammography screening. 1 year F/U This examination should not preclude the clinical evaluation of a suspicious palpable abnormality. This patient's information was entered into a reminder system with a target due date for their next mammogram. Electronically signed by: Georgette Crawford DO 10/16/2024 06:15 PM STEPHANIE
--- NOTE | ~2024-10-08 | MM_ITS ---
EXAMINATION: BONE DENSITOMETRY CLINICAL INDICATION: Disorder of bone, unspecified. COMPARISON: This is the patient's baseline examination. TECHNIQUE: Using a [employer] DXA System (software version: 13.1) manufactured by [employer], dual-energy x-ray absorptiometry was performed of the lumbar spine and left hip. The images are of good technical quality. Summary results are attached. FINDINGS: LEFT FEMUR, NECK: BMD 0.733 g/cm2, Z-score -0.6, T-score -2.2, osteopenia. LEFT FEMUR, TOTAL: BMD 0.787 g/cm2, Z-score -0.5, T-score -1.7, osteopenia. AP SPINE L1-L4: BMD 0.846 g/cm2, Z-score -1.1, T-score -2.8, osteoporosis. IDENTIFIED RISK FACTORS: Bilateral ovariectomy, early menopause, secondary osteoporosis, height loss, hysterectomy, osteoporosis. HISTORY OF FRACTURE: None listed. MEDICATIONS: Calcium, vitamin D. MM/XR DEXA axial skeleton IMPRESSION: 1. DIAGNOSIS: Osteoporosis based on the lowest T-score value of -2.8 in the lumbar spine applying World Health Organization criteria. 2. 10-YEAR FRACTURE RISK PREDICTION, FRAX: According to the guidelines, FRAX calculation should only be performed on patients in the osteopenia bone density category. Therefore, FRAX was not performed on this patient. 3. Treatment Recommendations: NOF guidelines recommend consideration for treatment in postmenopausal women and men age 50 and older presenting with the following: -A hip or vertebral (clinical or morphometric) fracture. -T-score less than or equal to -2.5 at the femoral neck or spine after appropriate evaluation to exclude secondary causes. -Low bone mass at the hip or spine and a 10-year fracture probability by FRAX of greater than or equal to 3% for hip fracture or greater than or equal to 20% for major osteoporotic fracture based on the [place] adapted WHO algorithm. 4. Other Recommendations: All treatment decisions require clinical judgment and consideration of individual patient factors, including patient preferences, comorbidities, previous drug use, risk factors not captured in the FRAX model (e.g. frailty, falls, vitamin D deficiency, increased bone turnover, interval significant decline in bone density) and possible under or overestimation of fracture risk by FRAX. Additional medical evaluation for secondary cause of low bone mineral density may be appropriate. FUTURE SCAN RECOMMENDATION: People with diagnosed cases of osteoporosis or at high risk for fracture should have regular bone mineral density tests. For patients eligible for Medicare, routine testing is allowed once every 2 years. The testing frequency can be increased to one year for patients who have rapidly progressing disease, those who are receiving or discontinuing medical therapy to restore bone mass, or have additional risk factors. Electronically signed by: Lauro Key MD 10/09/2024 09:10 AM [facility]IE MAYEN
== END 2024-10-08 08:38 | disposition home or self-care (01) ==
LOC: HO.MAMMO 08:37
PROVIDERS: PCP Internal Medicine; Visit Provider Internal Medicine
DX: Z12.31 Encounter for screening mammogram for malignant neoplasm of breast (principal); Z13.820 Encounter for screening for osteoporosis; M94.9 Disorder of cartilage, unspecified; M89.9 Disorder of bone, unspecified; Z78.0 Asymptomatic menopausal state
CPT/HCPCS: 77063; 77067; 77080

== ENCOUNTER → 2024-10-08 09:30 | Outpatient (BNV) | payer OTHER, SELFPAY | PROVIDERS: PCP Internal Medicine; Visit Provider Internal Medicine | DX: Z12.31 Encounter for screening mammogram for malignant neoplasm of breast (principal) | CPT/HCPCS: 77063; 77067 ==

== ENCOUNTER 2024-10-29 13:03 | Outpatient (AMB) | payer OTHER, SELFPAY ==
--- NOTE | 2024-10-29 13:10 | MHC.OFFVIS ---
Vital Signs 10/29/24 13:15 Height 5 ft 1.22 in Weight 115 lb 15.41 oz BMI 21.8 BP 110/62 Blood Pressure Location Rt brachial Position Sitting Pulse 62 Pulse Source Pulse Oximeter Intake Visit Reasons: Osteoporosis Intake Note: New patient internally referred by PCP for Osteoporosis. Gold Wheel Blocker And Polisher Required: Yes Gold Wheel Blocker And Polisher Language: Mandarin Occitan Gold Wheel Blocker And Polisher Services: Gold Wheel Blocker And Polisher Present Gold Wheel Blocker And Polisher Name: Santillan (TOM) [id number] Information Interpreted: non-clinical & clinical Accompanied by: Daughter Allergies Iodine and Iodide Containing Produc Adverse Reaction (Mild, Verified 10/29/24 13:16) Hives Medication List - Last Reconciled 10/29/24 by Rony Jimenez MD blood pressure monitor check bp daily and as needed for feeling off or headache cephalexin 500 mg PO BID 7 days losartan 100 mg PO DAILY HPI Comments Details: 59 YO Female with is seen in consultation at the request of PCP for Osteoporosis. First diagnosed in 10 yrs .Never saw specialist before Never Received treatment in the past . No history of pathologic fracture or ONJ. Has ? servings of dietary calcium per day . Takes Calcium supplement 1800 mg daily in divided doses. Takes 2000 IU of Vitamin D daily. Denies ever using PPI, anticoagulant, antiepileptic or glucocorticoid medication. 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 UTD on dental cleanings and sees dentist every 6 months. No planned upcoming dental work or extractions. DXA dated 10/08/24: FINDINGS: LEFT FEMUR, NECK: BMD 0.733 g/cm2, Z-score -0.6, T-score -2.2, osteopenia. LEFT FEMUR, TOTAL: BMD 0.787 g/cm2, Z-score -0.5, T-score -1.7, osteopenia. AP SPINE L1-L4: BMD 0.846 g/cm2, Z-score -1.1, T-score -2.8, osteoporosis. IDENTIFIED RISK FACTORS: Bilateral ovariectomy, early menopause, secondary osteoporosis, height loss, hysterectomy, osteoporosis. HISTORY OF FRACTURE: None listed. MEDICATIONS: Calcium, vitamin D. MM/XR DEXA axial skeleton IMPRESSION: 1. DIAGNOSIS: Osteoporosis based on the lowest T-score value of -2.8 in the lumbar spine applying World Health Organization criteria. Labs: [facility] Medical History HTN (hypertension) Surgical History Hx of colonoscopy Social History Housing: House Patient Tobacco Use Status: Never used Tobacco e-Cigarette/Vaping Use: Never Used service: No Current occupational status: retired Current occupational exposures/hazards: No Cognitive needs: No Hearing needs: No Vision needs: No Physical Exam There are no Cushingoid features. Absence of blue sclera. Absence of kyphosis. Thyroid gland is of nl size and weighs 15 gms. There are no thyroid nodules palpated. Lungs CTA. Heart S1 S2 Reg R/R Abdominal exam benign. Muscle strength 5/5 . Examination of spine reveals absence of tenderness on palpation Assessment & Plan Assessment & Plan (1) Osteoporosis: Code(s): M81.0 - Age-related osteoporosis without current pathological fracture Category: Medical Plan: This is a 59-year-old female with a history of osteoporosis. Rule out secondary causes Plan is to check a phosphorus, SPEP, urine immunofixation, 24 hour urine for calcium and creatinine. Will ensure 1200 mg of calcium and 2000 IU of vitamin D3. Assuming secondary workup was negative, could consider use of an anti resorptive agent like an oral or intravenous bisphosphonate Orders: Orders Phosphorus Today M81.0 - Age-related osteoporosis without current pathological fracture Calcium, 24 Hr Ur Today M81.0 - Age-related osteoporosis without current pathological fracture Creatinine, 24 Hr Group Today M81.0 - Age-related osteoporosis without current pathological fracture Protein Electrophoresis, Serum Today M81.0 - Age-related osteoporosis without current pathological fracture Immunofixation, Random Urine Today M81.0 - Age-related osteoporosis without current pathological fracture Vitamin D 25-OH Total Today M81.0 - Age-related osteoporosis without current pathological fracture Coding Level of Care Code New Pt Level 4 (83508) Diagnoses Osteoporosis M81.0
[2024-10-29 13:15] VITALS: BP 110/62; PULSE 62; BMI 21.8
== END 2024-10-29 14:05 | disposition home or self-care (01) ==
PROVIDERS: PCP Internal Medicine; Visit Provider Internal Medicine Endocrinology, Diabetes & Metabolism
DX: M81.0 Age-related osteoporosis without current pathological fracture (principal)
CPT/HCPCS: 99204

== ENCOUNTER → 2024-10-29 13:03 | Outpatient (BNVA) | payer OTHER, SELFPAY | PROVIDERS: PCP Internal Medicine; Visit Provider Internal Medicine Endocrinology, Diabetes & Metabolism | DX: M81.0 Age-related osteoporosis without current pathological fracture (principal); Z78.0 Asymptomatic menopausal state; Z90.722 Acquired absence of ovaries, bilateral; Z90.710 Acquired absence of both cervix and uterus | CPT/HCPCS: 99202 ==

== ENCOUNTER 2024-11-14 10:18 | Outpatient (AMB) | payer OTHER, SELFPAY ==
--- NOTE | 2024-11-14 10:36 | MHC.PC.OV ---
Vital Signs 11/14/24 10:39 Height 5 ft 1.22 in Weight 117 lb 8 oz BMI 22.0 BP 132/78 Blood Pressure Location Rt brachial Position Sitting Pulse 62 Pulse Source Pulse Oximeter Temp 98 F Temp Source Oral Pulse Oximetry (%) 99 Oxygen Delivery Method Room Air Intake Visit Reasons: body pain Intake Note: Body aches, worse at night. Having nightmares at night Equipment Service Associate Required: Yes Equipment Service Associate Language: Yoruba - Traditional Equipment Service Associate Name: Brigitte [id number] Allergies Iodine and Iodide Containing Produc Adverse Reaction (Mild, Verified 11/14/24 10:38) Hives Tobacco use date assessed: 05/05/24 Dental Screening Dental Screen Date: 05/05/24 HPI HPI Comments History of Present Illness Details 59-year-old Mandarin speaking female, accompanied by her daughter, presents for complete physical exam. 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 Neck, right thoracic, bilateral low back, buttocks, radiating to the legs. Bilateral knee, thumb pain. Remotely saw arthritis doctor. History of herniated lumbar disc. Was told she had arthritis CV: She is on losartan 100 mg daily. Denies chest pain, shortness of breath. Had prior cardiology consult and normal stress test GERD: Quiet. Previously on omeprazole She notes she has never had shingrix vaccines. Her last mammogram was last August 2022. Normal. due Pap is overdue Her last colonoscopy was with [facility] on 06/21/2023 with the following results: Impression: 1. Normal colon mucosa 2. Total of 2 polyps removed from sigmoid colon. 3. Internal hemorrhoids Recommendations: - Follow path results. - Repeat colonoscopy in 7-10 years if polyps are adenomas. ROS see HPI PHYSICAL EXAM: GENERAL: Alert and oriented x 3. NAD EYES: EOMI. Anicteric. HENT: Moist mucous membranes. No scleral icterus. No cervical lymphadenopathy. LUNGS: Clear to auscultation bilaterally. CARDIOVASCULAR: Regular rate and rhythm. No murmur. No JVD. ABDOMEN: Soft, non-tender +bs EXTREMITIES: No edema. Non-tender. MSK: Tender bilateral shoulders low back, hips, knees to palpation. +crepitus b/l knees. No effusion. No laxity, FROM SKIN: No rashes or lesions. Warm. NEUROLOGIC: No focal neurological deficits. CN II-XII grossly intact PSYCHIATRIC: Cooperative. Appropriate mood and affect PFSH Medical History HTN (hypertension) Surgical History Hx of colonoscopy Social History Housing: House Alcohol intake: former Patient Tobacco Use Status: Never used Tobacco e-Cigarette/Vaping Use: Never Used Use of substances other than those prescribed or required for medical reasons: No service: No Current occupational status: retired Current occupational exposures/hazards: No Cognitive needs: No Hearing needs: No Vision needs: No Questionnaire Thrive Questionnaire Date Thrive assessed: 08/04/24 I am a: Patient What is your living situation today?: I have a steady place to live Within the past 12 months, did the food you bought not last and you didn't have the money to get more?: Never true Within the past 12 months, did you worry whether your food would run out before you got money to buy more?: Never true Do you have trouble paying for medicines?: No Do you have trouble getting transportation to medical appointments?: No Do you have trouble paying your heating and electricity bill?: No Do you have trouble taking care of your child, family member or friend?: No Do you have trouble with day-to-day activities such as bathing, preparing meals, shopping, managing finances, etc.?: No Are you currently unemployed and looking for a job?: No Are you interested in more education?: No Please select the resources that you would like help with: None Currently or been in a relationship where the following occur: No concerns reported THRIVE Score: 0 AUDIT C Alcohol Use Questionnaire (AUDIT-C) 2. How many drinks containing alcohol do you have on a typical day when you are drinking?: 1 or 2 3. How often do you have six or more drinks on one occasion?: Never Total Score: 0 SAM-7 AMB Questionnaire SAM-7 Date SAM - 7 assessed: 09/06/22 Source: Developed by Drs. Rony Galan, Dunia Bailey, Ajay Richardson and colleagues, with an educational stefania from [email or web address]. Physical exam (Primary Care) Vital Signs: Last Vital Signs Temp 98 F 11/14/24 10:39 Pulse 62 11/14/24 10:39 BP 132/78 11/14/24 10:39 Pulse Ox 99 11/14/24 10:39 Oxygen Delivery Method Room Air 11/14/24 10:39 BMI result Body Mass Index 22.0 Tobacco/Smoking Status: Tobacco use Status Tobacco use date assessed 05/05/24 11/14/24 10:47 Patient Tobacco Use Status Never used Tobacco 11/14/24 10:47 e-Cigarette/Vaping Use Never Used 11/14/24 10:47 Thrive Assessment: Date of Thrive Assessment Date Thrive assessed 08/04/24 11/14/24 10:47 Currently or been in a relationship where the following occur: No concerns reported Coding Level of Care Code Est Pt Level 4 (46469) Complex EM visit Add On G2211 Diagnoses Polyarthralgia M25.50 Assessment & Plan Assessment & Plan (1) Polyarthralgia: Code(s): M25.50 - Pain in unspecified joint Category: Medical Plan: xray lumbar spine Labs Declines NSAID due to GERD referral to rheumatology Plan Also c/o trouble sleeping-melatonin ordered. c/o post nasal drip, left tinnitus-recommend antihistamine. ENT/hearing evaluation Orders: Orders Erythrocyte Sedimentation Rate Today M19.90 - Unspecified osteoarthritis, unspecified site, M25.50 - Pain in unspecified joint, M54.16 - Radiculopathy, lumbar region Rheumatoid Factor Today M19.90 - Unspecified osteoarthritis, unspecified site, M25.50 - Pain in unspecified joint, M54.16 - Radiculopathy, lumbar region Lyme IgG/IgM w/reflex to WB Today M19.90 - Unspecified osteoarthritis, unspecified site, M25.50 - Pain in unspecified joint, M54.16 - Radiculopathy, lumbar region Comprehensive Met. Panel Today M19.90 - Unspecified osteoarthritis, unspecified site, M25.50 - Pain in unspecified joint, M54.16 - Radiculopathy, lumbar region Hemoglobin A1c Today M19.90 - Unspecified osteoarthritis, unspecified site, M25.50 - Pain in unspecified joint, M54.16 - Radiculopathy, lumbar region XR lumbar spine 2-3V Today M19.90 - Unspecified osteoarthritis, unspecified site, M25.50 - Pain in unspecified joint, M54.16 - Radiculopathy, lumbar region Referrals Rheumatology Referral M19.90 - Unspecified osteoarthritis, unspecified site, M25.50 - Pain in unspecified joint, M54.16 - Radiculopathy, lumbar region Ear/Nose/Throat Referral H93.19 - Tinnitus, unspecified ear Medications: New melatonin 5 mg PO BEDTIME PRN 90 tabs 3RF sleep loratadine (Claritin) 10 mg PO DAILY 90 tabs 3RF
[2024-11-14 10:39] VITALS: BP 132/78; PULSE 62; TEMP 36.6; O2SAT 99; BMI 22.0
== END 2024-11-14 14:10 | disposition home or self-care (01) ==
PROVIDERS: PCP Internal Medicine; Visit Provider Internal Medicine
DX: M25.50 Pain in unspecified joint (principal)

== ENCOUNTER → 2024-11-14 10:18 | Outpatient (BNVA) | payer OTHER, SELFPAY | PROVIDERS: PCP Internal Medicine; Visit Provider Internal Medicine | DX: M25.50 Pain in unspecified joint (principal); M19.90 Unspecified osteoarthritis, unspecified site; G47.9 Sleep disorder, unspecified; R09.82 Postnasal drip; H93.12 Tinnitus, left ear | CPT/HCPCS: 99212 ==

== ENCOUNTER 2024-12-03 15:55 | Outpatient (REF) | payer OTHER, SELFPAY ==
[2024-12-03 17:28] LABS: Estimated Average Glucose 128 mg/dL; Hemoglobin A1c % 6.1 % (<6.0); Total Hemoglobin (HGBA1C) 3264.6134 umol/L
[2024-12-03 18:05] LABS: Rheumatoid Factor < 13.0 IU/mL (<15.0)
[2024-12-03 18:15] LABS: Alanine Aminotransferase 30 U/L (0-31); Albumin Level 4.3 g/dL (3.5-5.0); Alkaline Phosphatase 60 U/L (39-117); Anion Gap 13 (12-20); Aspartate Amino Transferase 29 U/L (5-31); Bilirubin Total 0.3 mg/dL (0.0-1.0); Blood Urea Nitrogen 21 mg/dL (9-16); Calcium 9.6 mg/dL (8.4-10.2); Carbon Dioxide 27 mmol/L (22-29); Chloride 107 mmol/L (96-108); Estimated Glomerular Filt Rate > 60; Glucose Random 102 mg/dL (60-115); Phosphorus 4.3 mg/dL (2.7-4.5); Sodium 143 mmol/L (135-145); Total Protein 7.4 g/dL (6.5-8.0)
[2024-12-03 18:31] LABS: Vitamin D 25-OH Total 104.5 ng/mL (>30)
[2024-12-03 18:33] LABS: Erythrocyte Sedimentation Rate 13 MM/HR (0-20)
[2024-12-04 21:58] LABS: Lyme Abs Screen <0.90 index
[2024-12-09 08:33] LABS: Prot Elec - Albumin 4.2 g/dL (3.8-4.8); Prot Elec - Alpha1 0.2 g/dL (0.2-0.3); Prot Elec - Alpha2 0.5 g/dL (0.5-0.9); Prot Elec - Beta 1 0.4 g/dL (0.4-0.6); Prot Elec - Beta 2 0.4 g/dL (0.2-0.5); Prot Elec - Gamma 1.1 g/dL (0.8-1.7); Prot Elec - Total Protein 6.8 g/dL (6.1-8.1)
== END 2024-12-03 15:56 | disposition home or self-care (01) ==
LOC: HO.LAB 15:55
PROVIDERS: Internal Medicine Endocrinology, Diabetes & Metabolism; PCP Internal Medicine; Visit Provider Internal Medicine
DX: M54.16 Radiculopathy, lumbar region (principal); M19.90 Unspecified osteoarthritis, unspecified site; M25.50 Pain in unspecified joint; M81.0 Age-related osteoporosis without current pathological fracture
CPT/HCPCS: 36415; 80053; 82306; 83036; 84100; 84165; 85652; 86335; 86431; 86617; 86618

== ENCOUNTER 2024-12-08 10:50 | Outpatient (REF) | payer OTHER, SELFPAY ==
[2024-12-08 12:27] LABS: Creatinine, mg/dL 26.53
[2024-12-08 12:45] LABS: Creatinine, 24Hr Urine 0.7 G/Day (1.0-2.0); Total Volume 24 Hour Urine 2625 mL
[2024-12-09 16:39] LABS: Calcium, 24 Hr Urine 213 mg/24 h; Calcium/Creatinine Ratio 270 mg/g creat (30-275); Creatinine 24Hr Urine 0.79 g/24 h (0.50-2.15)
== END 2024-12-08 10:51 | disposition home or self-care (01) ==
LOC: HO.LNP 10:50
PROVIDERS: Visit Provider Internal Medicine Endocrinology, Diabetes & Metabolism
DX: M81.0 Age-related osteoporosis without current pathological fracture (principal)
CPT/HCPCS: 82340; 82570

== ENCOUNTER 2025-03-04 12:27 | Outpatient (REF) | payer OTHER, SELFPAY ==
[2025-03-04 14:07] LABS: Vitamin D 25-OH Total 107.3 ng/mL (>30)
--- OUTSIDE RECORDS SUMMARY | 2025-03-04 14:27 | XMS_ITS | Data Portability ---
Author Organization [facility], 2- Admin Address [address] [place] [id number] Care Team Providers Care Manager Services Name Role Phone [facility] Referring Provide r Assessment Encounter Date Assessment Date Assessment LastModified by Organization Details LastModified Time 01/24/2018 01/24/2018 Mrs. Morales Is a pleasant 52-year-old female with complaint of low back pain and radiculopathy down the lateral aspect of the left lower extremity. She has numbness and tingling in the left foot. X-ray shows mild degenerative disc disease and facet arthropathy. She has failed conservative treatments. MRI of the lumbar spine without contrast. She will also begin gabapentin at bedtime and Mobic once daily. Not available 01/24/2018 15:38:04 02/28/2018 02/28/2018 Mrs. Morales Is a pleasant 52-year-old female with complaint of stocking distribution numbness and tingling from the knee down bilaterally. She also has complaint of low back pain. Her MRI of the lumbar spine showed what is thought to be a schwannoma in the cauda equina. I will order a MRI of the lumbar spine with and without contrast in 3 months to follow up. The interim I will order a EMG study/nerve conduction study of the bilateral lower extremities. I am hoping to have this completed and for her to follow-up before her departure back to [place] on March 18. Not available 02/28/2018 15:26:16 Plan of Treatment Reminders Order Date Submit Date Provider Last Modified By Organization Details Last Modified Time Details Appointments None recorded. Lab None recorded. Referral None recorded. Procedures nerve conduction study/EMG, lower extremity (PROC) - Bilateral lower extremity EMG / NCV / please schedule moy she is leaving for [place] in 2 weeks / tls 2017 018 [facility] Not available 8 07:43:50 Surgeries None recorded. Imaging MRI, lumbar spine, w/o contrast 2017 018 [facility], [address], [place], [address], 8 14:47:40 XR, lumbar spine 2017 018 [email or web address] [497], [address], [place], [address], 8 15:42:20 Medication Orders gabapentin 300 mg capsule 2017 018 [address] [facility], [address] [facility], [place], [address], 8 15:59:32 Mobic 15 mg tablet 2017 018 [address] [facility], [address] [facility], [place], [address], 8 15:59:32 Patient Targets Encounter Date Encounter Id Patient Goals Patient Target Last Modified By Organization Details Last Modified Time stg1. Patient demonstrates initial hep for LE and back flexibility in 3 weeks.2. Patient demonstrates understanding of positioning to decrease back and LE stress in 3 weeks.ltg1. Patient demonstrates comprehensive hep for back stabilization and LE stability in 8 weeks.2. Patient able to sleep awakening 1 time at night due to pain in 6 weeks.3. Patient able to participate in minimal housework without pain limiting in 6 weeks.4. Patient sleeping through night in 8 weeks without awakening due to pain5. Patient able to return to housework and cooking without pain limiting in 8 weeks. Not available 01/24/2018 08:26:21 stg1. Patient demonstrates initial hep for LE and back flexibility in 3 weeks.2. Patient demonstrates understanding of positioning to decrease back and LE stress in 3 weeks.ltg1. Patient demonstrates comprehensive hep for back stabilization and LE stability in 8 weeks.2. Patient able to sleep awakening 1 time at night due to pain in 6 weeks.3. Patient able to participate in minimal housework without pain limiting in 6 weeks.4. Patient sleeping through night in 8 weeks without awakening due to pain5. Patient able to return to housework and cooking without pain limiting in 8 weeks. Not available 01/31/2018 09:16:41 stg1. Patient demonstrates initial hep for LE and back flexibility in 3 weeks. met2. Patient demonstrates understanding of positioning to decrease back and LE stress in 3 weeks. metltg1. Patient demonstrates comprehensive hep for back stabilization and LE stability in 8 weeks.2. Patient able to sleep awakening 1 time at night due to pain in 6 weeks.3. Patient able to participate in minimal housework without pain limiting in 6 weeks.4. Patient sleeping through night in 8 weeks without awakening due to pain5. Patient able to return to housework and cooking without pain limiting in 8 weeks. Not available 02/05/2018 13:23:18 Patient Instructions Encounter Date Encounter Id Patient Instructions Last Modified By Organization Details Last Modified Time 01/24/2018 [id number] back care and preventing injuries: care instructions Not available 01/24/2018 14:47:15 getting back to normal after low back pain: care instructions Not available 01/24/2018 14:47:15 learning about relief for back pain Not available 01/24/2018 14:47:15 Reason for Referral None Reported. Results Created Date Observation Date Name Description Value Unit Range Abnormal Flag Note LastModifiedBy Organization Detail LastModifiedTime 01/07/20 18 01/07/2018 XR, knee StudyI [facility] eUID=1 .2 6.9125 .2.220 [id number] 49507. [id number] 34328. [id number] 6 [email or web address] [facility] [497] [address], [place], [address], 01/15/2018 13:10:27 01/25/20 18 01/24/2018 XR, lumba r spine StudyI [facility] eUID=1 .2 6.9125 .2.220 [id number] 99174. [id number] [id number]. [id number] 2 INTERFACE [facility] [497] [address], [place], [address], 01/24/2018 15:04:36 02/12/20 18 02/11/2018 MRI, lumba r spine , w/o contr ast No observ ation record ed. [facility] [address], [place], [address], 02/27/2018 09:42:14 Result Notes None recorded. Procedures Surgical History Date Name Laterality Status Provider Name and Address Organization Details Recorded Time 8 50466: Therapeutic Exercise [facility] 02/05/2018 13:23:06 8 77206: Therapeutic Activities completed Nicki [facility] - [facility] 02/05/2018 13:21:52 8 83638: Therapeutic Exercise completed Nicki [facility] - [facility] 01/31/2018 10:05:52 8 57479: Therapeutic Activities completed Nicki [facility] - [facility] 01/31/2018 10:05:42 8 98032: Therapeutic Exercise completed [facility] - [facility] 01/24/2018 09:26:37 8 76051: Therapeutic Activities completed Nicki [facility] - [facility] 01/24/2018 09:26:19 8 12311: Therapeutic Exercise completed Nicki [facility] - [facility] 01/17/2018 12:10:34 8 72169 PT eval ? moderate complexity completed [facility] 01/16/2018 08:44:23 8 93885: Therapeutic Exercise completed [facility] - [facility] 01/16/2018 08:54:34 Imaging Results Imaging Date Name Status LastModified by Organiz ation Details LastModified Time 01/07/2018 XR, knee completed [facility] [[id number]] [address], [place], [address], 01/15/2018 13:10:27 01/24/2018 XR, lumbar spine completed INTERFACE [facility] [497] [address], [place], [address], 01/24/2018 15:04:36 02/11/2018 MRI, lumbar spine, w/o contrast completed [address] [facility] [address], [place], [address], 02/27/2018 09:42:14 Procedure Notes None recorded. Medical Equipment None Reported. Allergies No known drug allergies Medications Name Sig Start Date Stop Date Status Note LastModified by Organization Details LastModified Time prednisone 10 mg tablet active Not Available Not Available No t Available meloxicam 15 mg tablet Take 1 tablet every day by oral route as needed for 30 days. active Not Available Not Available No t Available ropinirole 0.25 mg tablet active Not Available Not Available Not Available gabapentin 300 mg capsule Take 1 capsule every day by oral route at bedtime for 30 days. active Not Available Not Available No t Available candesartan 8 mg tablet active Not Available Not Available No t Available Vitals Date Recorded Body height Body mass index (BMI) Body weight Provider Name and Address Organization Details Last Updated DateTime 01/24/2018 152.4 cm 22.1 kg/m2 16410.94 g Debra Maravilla [place] - [facility] 01/24/2018 14:30:10 Date Recorded Body height Body mass index (BMI) Body weight Provider Name and Address Organization Details Last Updated DateTime 02/28/2018 152.4 cm 22.1 kg/m2 50662.94 g [facility] [place] [facility] 02/28/2018 14:33:31 Social History Question Answer Notes LastModified by Organizat ion Details LastModified Time Tobacco Smoking Status Never Smoker Jimmy Corona II, PA-C [address] [facility] [place], [address], [facility] 01/07/2018 09:43:38 Do You Have An Advance Directive? No Information not available 01/07/2018 What Is Your Level Of Alcohol Consumption? None Information not available 01/07/2018 How Much Tobacco Do You Chew? None Information not available 01/07/2018 Are You Currently Employed? No Information not available 01/07/2018 Which Of Your Hands Is Dominant? Right Information not available 01/07/2018 Live Alone Or With Others? With Others Information not available 01/07/2018 Marital Status Informatio n not available 01/07/2018 Do You Have A Medical Power Of Microbiology Supervisor? No [email or web address] Information not available 01/07/2018 What Was The Date Of Your Most Recent Tobacco Screening? 02/28/2018 Information not available 06/19/2019 How Much Tobacco Do You Smoke? No Information not available 01/07/2018 Sex: Unknown Functional Status None recorded. Mental Status None recorded. Family History Nothing Reported. Medical History Condition Response Heart Problems N HIV or AIDS N None N Osteoarthritis N Leukemia N Irregular Heartbeat N Parkinson's Disease N MRSA N Migraines N COPD N Lung Disease N Depression N Previous Pain Management Treatment: N Lupus/SLE N Bipolar N Anemia N Sickle Cell Anemia N Poor Circulation N Congestive Heart Failure N Stomach Ulcers N Anxiety Disorder N Diabetes N Hepatitis/Liver Disease N Bleeding Disorder N Seizures/Epilepsy N Thyroid Problems/Goiter N Tuberculosis N Other: N Cancer N Chest Pain/Angina N Asthma N Chronic Back Pain N Sleep apnea N Numbness/Tingling Y Stroke/TIA N GERD/Reflux N High Cholesterol N Pulmonary Embolis N GI Issues Specify: N Rheumatoid Arthritis N Fibromyalgia N Hypertension Y Osteoporosis N Kidney Disease N Gynecological HistoryNo gynecological history recorded. Obstetrics History GPAL:G 0 P 0 0 0 0 Past Encounters Encounter ID Performer Location Encounter Start Date Encounter Closed Date Diagnosis/Indication Diagnosis SNOMED-CT Code Diagnosis ICD10 Code Diagnosis Note [id number] Jimmy Corona II, SUZETTE 2-O-[facility] [address] [address] 01/07/2018 09:08:47 01/07/2018 10:49:26 Knee pain 92481524 M25.562 I discussed diagnosis and reviewed Xrays with patient. Treatment plan discussed with verbal understand ing of same. Patient provided a diagnostic and potentiall y therapeuti c corticoste riod injection to the knee. Follow up will be in 6 weeks, sooner if worsening. All questions answered and encouraged . Patient agrees with treatment plan. [id number] Nicki Childers 2-PT-[facility] [address] [address] 01/15/2018 09:00:05 01/15/2018 10:26:04 Pain in left knee [id number] 08351 M25.562 Low back pain 869596120 M54.5 Abnormal posture 8333269 2 R29.3 [id number] [facility] [address] [address] 01/17/2018 09:26:50 01/17/2018 10:51:39 Pain in left knee 6327075914 91904 M25.562 Low back pain 869943531 M54.5 Abnormal posture 3626424 2 R29.3 [id number] Nicki Childers 2-[facility] [address] [address] 01/24/2018 08:25:07 01/24/2018 09:19:18 Pain in left knee 4486438877 18005 M25.562 Low back pain 562390156 M54.5 Abnormal posture 8011008 2 R29.3 [id number] Ana Rosa Bowers PA-C 2-[facility] [address] [address] 01/24/2018 14:25:54 01/24/2018 15:42:19 Low back pain 202449929 M54.5 Lumbar radiculopathy 128 571171 M54.16 [id number] Nicki Childers 2-PT-[facility] [address] [address] 01/31/2018 09:14:08 01/31/2018 11:29:53 Pain in left knee 6358297090 32903 M25.562 Low back pain 028941029 M54.5 Abnormal posture 2127873 2 R29.3 [id number] [facility] [address] [address] 02/05/2018 09:37:29 02/05/2018 10:21:20 Pain in left knee 5684128808 56974 M25.562 Low back pain 282628477 M54.5 Abnormal posture 3838050 2 R29.3 [id number] Ana Rosa Bowers PA-C 2-O-[place] [address] [address] 02/28/2018 14:24:05 02/28/2018 15:15:27 Lumbar radiculopathy 636774699 M54.16 Health Concerns Section Related Observation LastModified by Organization Detai ls LastModified Time None Recorded Concern Status LastModified by Organization Details LastModified Time None Recorded Advance Directives Directive N: Payers Encounter Date Sequence Insurance Name Policy Number Policy Fenton Covered Member ID Fenton Member ID Guarantor Name 01/24/2018 1 [place] [id number] Micaela MORALES [id number] 01/24/2018 1 [place] [id number] Micaela LI [id number] 01/31/2018 1 [place] [id number] Micaela LI [id number] 02/05/2018 1 [place] [id number] Micaela LI [id number] 02/28/2018 1 [place] [id number] Micaela MORALES [id number] Notes Date Note Type Note Provider Name and Address Organization Details Recorded Time 01/24/2018 text/html Mrs. Morales A pleasa nt 52-year-old female with complaint of low back pain with radiculopathy down the left lower extremity. She has numbness and tingling in the distal left lateral extremity as well as numbness and tingling on the ventral aspect of the foot. Patient has tried physical therapy with only moderate improvement in symptoms. Pain is worse with sitting for long periods of time or flexion and extension. Patient was not able to tolerate completion of a Medrol Dosepak secondary to upset stomach. She was also prescribed to require it but states it is not helping. She denies lower extremity weakness. She denies bowel or bladder incontinence. Ana Rosa Bowers PA-C [address] [place], [address], [facility] 01/25/2018 16:31:12 02/28/2018 text/html Mrs. Morales Is a pleasant 52-year-old female following off to review her MRI of the lumbar spine. Her daughter accompanies her to [facility]. Patient continues to have numbness and tingling in a stocking distribution from the knee down. She reports the pain to be most uncomfortable on the ventral aspect of the bilateral feet. She also has bilateral hip and buttock pain. She denies pain throughout the anterior and posterior thigh. MRI of the lumbar spine was performed at [facility] on February 11, 2018. There is a 3-4 mm nodule in the cauda equina. This is most likely a small schwannoma according to the interpretation of the radiologist. Contrast is recommended in 3 months. Early degenerative disc disease is seen at L4-5. No significant central or foraminal stenosis is seen. Previous HPI--Mrs. Morales A pleasant 52-year-old female with complaint of low back pain with radiculopathy down the left lower extremity. She has numbness and tingling in the distal left lateral extremity as well as numbness and tingling on the ventral aspect of the foot. Patient has tried physical therapy with only moderate improvement in symptoms. Pain is worse with sitting for long periods of time or flexion and extension. Patient was not able to tolerate completion of a Medrol Dosepak secondary to upset stomach. She was also prescribed to require it but states it is not helping. She denies lower extremity weakness. She denies bowel or bladder incontinence. Ana Rosa Bowers PA-C [address] [place], [address], [facility] 02/28/2018 15:26:50 OBGyn Episode No OBEpisode recorded.
--- OUTSIDE RECORDS SUMMARY | 2025-03-04 14:28 | XMS_ITS | Data Portability ---
Author Organization [facility] Tara GAMBLE_Tian_ Address [address] [place] [address] Care Team Providers Care Staff Psychiatrist Name Role Phone [facility] Primary Care Provider [phone] Assessment No assessment recorded. Plan of Treatment Reminders Order Date Submit Date Provider Last Modified By Organization Details Last Modified Time Details Appointments None recorded. Lab urinalysis , dipstick 2019 020 [email or web address] In-Office Order, Internal Use Only DO Not Attach Compendium DO Not Attach Compendium, Do Not Delete/merge, [id number] 0 08:33:14 Referral mammogram screening referral - Screening mammogram 2019 020 [facility] Not available 0 05:02:14 colonoscop y referral - Screening colonoscop y; hx of colon polyps. 2019 020 [facility] Not available 0 05:01:45 Procedures pulse oximetry (PROC) 2019 020 In-Office Order, Internal Use Only DO Not Attach Compendium DO Not Attach Compendium, Do Not Delete/merge, [id number] 0 16:59:22 pulse oximetry (PROC) 2019 020 In-Office Order, Internal Use Only DO Not Attach Compendium DO Not Attach Compendium, Do Not Delete/merge, [id number] 08:33:14 pulse oximetry (PROC) 2019 020 [email or web address] In-Office Order, Internal Use Only DO Not Attach Compendium DO Not Attach Compendium, Do Not Delete/merge, [id number] 0 15:00:23 pulse oximetry (PROC) 2018 019 [email or web address] In-Office Order, Internal Use Only DO Not Attach Compendium DO Not Attach Compendium, Do Not Delete/merge, [id number] 9 16:45:51 pulse oximetry (PROC) 2018 019 In-Office Order, Internal Use Only DO Not Attach Compendium DO Not Attach Compendium, Do Not Delete/merge, [id number] 10:04:51 Surgeries None recorded. Imaging US, abdomen + pelvis - 54 Y/O F WITH PALPABLE NODULE NOTED TO RIGHT SUPRAPUBIC REGION. PT REPORTS PALPATING IT 2 WEEKS AGO WHILE SHOWERING. NO PAIN. PLEASE PERFORM ULTRASOUND TO FURTHER ASSESS AREA OF CONCERN. THANK YOU! 2019 020 [facility] Not available 0 18:35:38 XR, chest 2018 019 [id number] In-Office Order, Internal Use Only DO Not Attach Compendium DO Not Attach Compendium, Do Not Delete/merge, [id number] 9 12:08:39 XR, chest 2018 019 [email or web address] In-Office Order, Internal Use Only DO Not Attach Compendium DO Not Attach Compendium, Do Not Delete/merge, [id number] 9 11:11:28 Medication Orders benzonatat e 200 mg capsule [id number] [facility], [address] [place] [address], [place], [address], 0 14:40:34 doxycyclin e hyclate 100 mg capsule [address] [facility] [address] [facility], [address] [place] [address], [place], [address], 0 14:40:38 hydrocodon e-homatrop ine 5 mg-1.5 mg/5 mL oral solution 2018 019 [facility], [address] [place], [address], 9 15:57:44 Breo Ellipta 100 mcg-25 mcg/dose powder for inhalation 2018 019 INTERFACE [facility], [address] [place], [address], 9 10:04:56 prednisone 20 mg tablet 2018 019 [email or web address] [facility], [address] [place], [address], 9 15:57:53 Patient TargetsNo targets recorded. Patient Instructions Encounter Date Encounter Id Patient Instructions Last Modified By Organization Details Last Modified Time 01/29/2019 [id number] PATIENT IS INSTRUCTED TO FOLLOW UP IMMEDIATELY TO THE ED WITH ANY INCREASING PAIN AND/OR INTENSITY OF HEADACHE, CHANGE IN CHARACTER OF HEADACHE, UNRELENTING, UNRESOLVABLE, PROGRESSIVE CERDA...EYE PAIN, NECK PAIN, POSITIONAL/POSTURAL PAIN, NUMBNESS, WEAKNESS, PARAESTHESIAS, FEVER, CHILLS, RASH, ETC.... DISCUSSED. PATIENT IS ADVISED TO RETURN TO THE OFFICE/REPORT IMMEDIATELY TO THE EMERGENCY ROOM FOR ANY NEW OR WORSENING S/SXs SUCH CHEST PAIN/PRESSURE, COUGHING UP BLOOD, SHORTNESS OF BREATH, INCREASING WHEEZING NOT RESPONSIVE TO MEDICATION, MALAISE/LETHARGY/CO NFUSION, INABILITY TO TAKE FOOD/LIQUIDS/MEDICA TION(S) BY MOUTH, WORSENING FEVER NOT RESPONSIVE TO ANTIPYRETICS, OR ANY OTHER NEW/CONCERNING S/SX.. FOLLOW UP IN OFFICE/EMERGENCY DEPARTMENT NEEDED IF NO BETTER AND/OR FOR ANY POTENTIAL COMPLICATIONS AND/OR ANY WORRISOME SIGNS OR SYMPTOMS DISCUSSED PRIOR TO DISCHARGE AND/OR SCHEDULED FOR REASONS DISCUSSED.... Not available 04/01/2019 13:37:40 After performing a Medical Screening Examination, I estimate there is LOW risk for ACUTE GLAUCOMA, TEMPORAL ARTERITIS, MENINGITIS, INTRACRANIAL HEMORRHAGE, or ISCHEMIC STROKE thus I consider the discharge disposition reasonable. The patient and I have discussed the diagnosis and risks, and we agree with discharging home with close follow-up with the understanding that symptoms and presentations can change. We also discussed returning to the Office immediately if new or worsening symptoms occur. We have discussed the symptoms which are most concerning (e.g., changing or worsening symptoms, new numbness or weakness, vomiting, fever) that necessitate immediate return. After performing a Medical Screening Examination, I estimate there is LOW risk for a DEEP SPACE INFECTION (e.g., ROZINA'S ANGINA OR RETROPHARYNGEAL ABSCESS), MENINGITIS, CAVERNOUS SINUS THROMBOSIS, INTRACRANIAL HEMORRHAGE, or AIRWAY COMPROMISE, thus I consider the discharge disposition reasonable. Also, there is no evidence of peritonitis, sepsis, or toxicity. The patient and I have discussed the diagnosis and risks, and we agree with discharging home with close follow-up with the understanding that symptoms and presentations can change. We also discussed returning to the Office immediately or go directly to the ED if new or acutely worsening symptoms occur. We have discussed the symptoms which are most concerning (e.g., changing or worsening pain, trouble swallowing or breathing, neck stiffness or fever) that necessitate immediate return or ED presentation. After performing a Medical Screening Examination, I estimate there is LOW risk for AIRWAY COMPROMISE, ANAPHYLAXIS, CELLULITIS, EPIGLOTTIS, or NECROTIZING FASCIITIS, thus I consider the discharge disposition reasonable. Also, there is no evidence of peritonitis, sepsis, or toxicity. The patient and I have discussed the diagnosis and risks, and we agree with discharging home with close follow-up with the understanding that symptoms and presentations can change. We also discussed returning to the Office immediately or go directly to the ED if new or worsening symptoms occur. We have discussed the symptoms which are most concerning (e.g., difficulty breathing or swallowing, worsening fever, changing or worsening pain) that necessitate immediate presentation to the ED. All pt. questions and concerns were addressed and answered. Pt. verbalized understanding and agreement of treatment plan. I spent over 20 minutes of face to face time with patient and > 50% was spent in counseling and/or coordination of care. Quality measures/ USPSTF/AAFP screening guidelines and recommendations were reviewed and discussed and appropriate orders initiated if applicable. Not available 04/01/2019 13:37:57 02/24/2019 [id number] saline nasal washes: care instructions [email or web address] Not available 02/24/2019 16:45:51 cough: care instructions Not available 02/24/2019 16:45:51 RTC for new or worsening sxs. [email or web address] Not available 03/06/2019 18:00:22 After performing a Medical Screening Examination, I estimate there is LOW risk for ACUTE CORONARY SYNDROME, RESPIRATORY FAILURE, SEPSIS OR MENINGITIS, thus I consider the discharge disposition reasonable. The patient and I have discussed the diagnosis and risks, and we agree with discharging home with close follow-up. We also discussed returning to the Office immediately if new or worsening symptoms occur. We have discussed the symptoms which are most concerning (e.g., changing or worsening pain, trouble swallowing or breathing, neck stiffness, fever) that necessitate immediate return. [email or web address] Not available 02/24/2019 15:53:38 12/22/2019 [id number] RTC DIRECTED. [email or web address] Not availabl e 12/22/2019 15:00:45 Face to face brittany e spent with patient was 20 min, with >50% of that time spent counseling the patient, discussing the risk and benefits of treatment and family education [email or web address] Not available 12/22/2019 15:00:53 12/30/2019 [id number] RTC IN 1 MONTH F OR RECHECK OF LYMPH NODE. [email or web address] Not available 01/08/2020 08:33:24 Face to face brittany e spent with patient was 20 min, with >50% of that time spent counseling the patient, discussing the risk and benefits of treatment and family education [email or web address] Not available 01/08/2020 08:33:32 01/21/2020 [id number] rhythm strip, EKG* Not availa ble 01/27/2020 16:59:21 visual acuity* [email or web address] Not available 0 01/27/2020 16:59:22 RTC IN 3 MONTHS FOR FOLLOW UP OF HTN/PREDIABETES. [email or web address] Not available 01/27/2020 17:01:04 After performing a Medical Screening Examination, I estimate there is LOW risk for ACUTE CORONARY SYNDROME, RESPIRATORY FAILURE, SEPSIS OR MENINGITIS, thus I consider the discharge disposition reasonable. The patient and I have discussed the diagnosis and risks, and we agree with discharging home with close follow-up. We also discussed returning to the Office immediately if new or worsening symptoms occur. We have discussed the symptoms which are most concerning (e.g., changing or worsening pain, trouble swallowing or breathing, neck stiffness, fever) that necessitate immediate return. [email or web address] Not available 01/21/2020 09:21:35 Reason for Referral Mammogram Screening Referral for Screening for malignant neoplasm of breast Screening mammogram Screening mammogram Referring Physician: Alecia Cortes, [facility], Encounter Date: 01/21/2020 Colonoscopy Referral for Scr eening for malignant neoplasm of colon Screening colonoscopy Screening colonoscopy; hx of colon polyps. Referring Physician: Alecia Cortes [facility], Encounter Date: 01/21/2020 Results Created Date Observation Date Name Description Value Unit Range Abnormal Flag Note LastModifiedBy Organization Detail LastModifiedTime 01/21/2001/21/2020 visua l acuit y* SNELLEN EYE CHART SEES OPTOME TRY Not Available In-Office Order Internal Use Only DO Not Attach Compendium DO Not Attach Compendium, Do Not Delete/merge, [id number] 01/21/2020 09:25:53 01/21/2001/21/2020 pulse oxime try (PROC ) pulse oximetry 97% ROOM AIR Not Available In-Office Order Internal Use Only DO Not Attach Compendium DO Not Attach Compendium, Do Not Delete/merge, [id number] 01/21/2020 09:21:42 12/30/1912/30/2019 urina lysis , dipst ick Glucose Negati ve Not Available In-Office Order Internal Use Only DO Not Attach Compendium DO Not Attach Compendium, Do Not Delete/merge, [id number] 12/30/2019 10:39:54 12/30/1912/30/2019 urina lysis , dipst ick Bilirubin Negati ve Not Available In-Office Order Internal Use Only DO Not Attach Compendium DO Not Attach Compendium, Do Not Delete/merge, [id number] 12/30/2019 10:39:54 12/30/1912/30/2019 urina lysis , dipst ick Ketones Negati ve Not Available In-Office Order Internal Use Only DO Not Attach Compendium DO Not Attach Compendium, Do Not Delete/merge, [id number] 12/30/2019 10:39:54 12/30/1912/30/2019 urina lysis , dipst ick SG 1.025 Not Available In-Office Order Internal Use Only DO Not Attach Compendium DO Not Attach Compendium, Do Not Delete/merge, 12/30/2019 10:39:54 12/30/19 20 12/30/2019 urina lysis , dipst ick Blood Negati ve Not Available In-Office Order Internal Use Only DO Not Attach Compendium DO Not Attach Compendium, Do Not Delete/merge, 12/30/2019 10:39:54 12/30/19 20 12/30/2019 urina lysis , dipst ick pH 6.5 Not Available In-Office Order Internal Use Only DO Not Attach Compendium DO Not Attach Compendium, Do Not Delete/merge, 12/30/2019 10:39:54 12/30/19 20 12/30/2019 urina lysis , dipst ick Protein Negati ve Not Available In-Office Order Internal Use Only DO Not Attach Compendium DO Not Attach Compendium, Do Not Delete/merge, 12/30/2019 10:39:54 12/30/19 20 12/30/2019 urina lysis , dipst ick Urobilinogen 0.2 Not Available In-Of fice Order Internal Use Only DO Not Attach Compendium DO Not Attach Compendium, Do Not Delete/merge, 12/30/2019 10:39:54 12/30/19 20 12/30/2019 urina lysis , dipst ick Nitrites negati ve Not Available In-Office Order Internal Use Only DO Not Attach Compendium DO Not Attach Compendium, Do Not Delete/merge, 12/30/2019 10:39:54 12/30/19 20 12/30/2019 urina lysis , dipst ick Leukocytes Negati ve Not Available In-Office Order Internal Use Only DO Not Attach Compendium DO Not Attach Compendium, Do Not Delete/merge, 12/30/2019 10:39:54 12/30/19 20 12/30/2019 urina lysis , dipst ick Appearance Clear Not Available In-Offi ce Order Internal Use Only DO Not Attach Compendium DO Not Attach Compendium, Do Not Delete/merge, 12/30/2020 10:39:54 12/30/19 20 12/30/2019 urina lysis , dipst ick Color Yellow Not Available In-Office Order Internal Use Only DO Not Attach Compendium DO Not Attach Compendium, Do Not Delete/merge, [id number] 12/30/2019 10:39:54 12/30/19 20 12/30/2019 pulse oxime try (PROC ) pulse oximetry 96% ROOM AIR Not Available In-Office Order Internal Use Only DO Not Attach Compendium DO Not Attach Compendium, Do Not Delete/merge, [id number] 12/30/2019 09:49:22 12/22/19 20 12/22/2019 pulse oxime try (PROC ) pulse oximetry 97% ROOM AIR Not Available In-Office Order Internal Use Only DO Not Attach Compendium DO Not Attach Compendium, Do Not Delete/merge, 12/22/2019 14:36:13 02/25/20 19 02/24/2019 pulse oxime try (PROC ) pulse oximetry 97% ROOM AIR Not Available In-Office Order Internal Use Only DO Not Attach Compendium DO Not Attach Compendium, Do Not Delete/merge, [id number] 02/24/2019 15:53:42 01/30/20 19 01/29/2019 pulse oxime try (PROC ) pulse oximetry 97% room air Not Available In-Office Order Internal Use Only DO Not Attach Compendium DO Not Attach Compendium, Do Not Delete/merge, [id number] 01/29/2019 08:48:59 01/28/20 19 01/27/2019 rapid strep group A, throa t Strep negati ve Not Available In-Office Order Internal Use Only DO Not Attach Compendium DO Not Attach Compendium, Do Not Delete/merge, [id number] 01/27/2019 09:39:24 01/28/20 19 01/27/2019 pulse oxime try (PROC ) pulse oximetry 96% ROOM AIR Not Available In-Office Order Internal Use Only DO Not Attach Compendium DO Not Attach Compendium, Do Not Delete/merge, [id number] 01/27/2019 09:38:46 01/15/20 19 01/22/2019 rhyth m strip , EKG* EKG Sinus rhythm Not Available In-Office Order Internal Use Only DO Not Attach Compendium DO Not Attach Compendium, Do Not Delete/merge, [id number] 01/15/2019 09:19:04 01/15/2001/15/2019 pulse oxime try (PROC ) pulse oximetry 96% ROOM AIR Not Available In-Office Order Internal Use Only DO Not Attach Compendium DO Not Attach Compendium, Do Not Delete/merge, [id number] 01/15/2019 09:14:00 01/02/2001/03/2019 lipid panel , serum cholesterol, total 183 mg/dL <200 normal Not Available [facility] [address] [place], [address], 01/03/2019 02:09:09 01/02/2001/03/2019 lipid panel , serum HDL cholesterol 47 mg/dL >50 low Not Available [facility] [address] [place], [address], 01/03/2019 02:09:09 01/02/2001/03/2019 lipid panel , serum triglyceride s 85 mg/dL <150 normal Not Available [facility] [address] [place], [address], 01/03/2019 02:09:09 01/02/2001/03/2019 lipid panel , serum LDL-choleste rol 118 mg/dL _(carlyn c) high Refer ence range : <100 Tano able range <100 mg/dL for prima ry preve ntion ; <70 mg/dL for patie nts with CHD or diabe tic patie nts with > or = 2 CHD risk facto rs. LDL-C is now calcu lated using the Kelin n-Hop kins calcu annie n, which is a valid ated novel bernard sparks than the Fried aram equat ion in the estim ation of LDL-C . Kelin CANALES et al. RACHEL. 2013; 310(1 9): 2061- 2068 (http ://ed ucati on.Qu estDi santiagoAbbott Labss. com/f aq/FA Q164) Not Available [facility] [address] [place], [address], 01/03/2019 02:09:09 01/02/2001/03/2019 lipid panel , serum chol/HDLC ratio 3.9 (calc ) <5.0 normal Not Available [facility] [address] [place], [address], 01/03/2019 02:09:09 01/02/2001/03/2019 lipid panel , serum LDL/HDL ratio 2.5 (calc ) Below avera ge Risk: <2.34 [place] ge Risk: 2.35- 4.12 Moder ate Risk: 4.13- 5.56 High Risk: >5.57 Not Available [facility] [address] [place], [address], 01/03/2019 02:09:09 01/02/2001/03/2019 lipid panel , serum non HDL cholesterol 136 mg/dL _(carlyn c) <130 high For patie nts with diabe darlene plus 1 major ASCVD risk facto r, treat ing to a non-H DL-C goal of <100 mg/dL (LDL- C of <70 mg/dL ) is consi joanne wango n. Not Available [facility] [address] [place], [address], 01/03/2019 02:09:09 01/02/2001/03/2019 CMP, serum or plasm a glucose 96 mg/dL 65-99 normal Fasti ng refer ence inter lilliam Not Available [facility] [address] [place], [address], 01/03/2019 02:09:10 01/02/2001/03/2019 CMP, serum or plasm a urea nitrogen (BUN) 19 mg/dL 7-25 normal Not Available [facility] [address] [place], [address], 01/03/2019 02:09:10 01/02/2001/03/2019 CMP, serum or plasm a creatinine 0.75 mg/dL 0.50-1 .05 normal For patie nts >49 years of age, the refer ence limit for Creat inine is appro ximat jerod 13% highe r for peopl e ident ified as Afric an-Am tita n. Not Available [facility] [address] [place] [address], [address], 01/03/2019 02:09:10 01/02/2001/03/2019 CMP, serum or plasm a eGFR non-afr. cymraes 90 mL/mi n/1.7 3m2 > or = 60 normal Not Available [facility] [address] [place] [address], [address], 01/03/2019 02:09:10 01/02/2001/03/2019 CMP, serum or plasm a eGFR 104 mL/mi n/1.7 3m2 > or = 60 normal Not Available [facility] [address] [place] [address], [address], 01/03/2019 02:09:10 01/02/2001/03/2019 CMP, serum or plasm a BUN/creatini ne ratio NOT APPLIC ABLE (calc ) 6-22 Not Available [facility] [address] [place] [address], [address], 01/03/2019 02:09:10 01/02/2001/03/2019 CMP, serum or plasm a sodium 142 mmol/ L 135-14 6 normal Not Available [facility] [address] [place] [address], [address], 01/03/2019 02:09:10 01/02/2001/03/2019 CMP, serum or plasm a potassium 4.3 mmol/ L 3.5-5. 3 normal Not Available [facility] [address] [place] [address], [address], 01/03/2019 02:09:10 01/02/2001/03/2019 CMP, serum or plasm a chloride 106 mmol/ L 98-110 normal Not Available [facility] [address] [place] [address], [address], 01/03/2019 02:09:10 01/02/2001/03/2019 CMP, serum or plasm a carbon dioxide 28 mmol/ L 20-32 normal Not Available [facility] [address] [place] [address], [address], 01/03/2019 02:09:10 01/02/2001/03/2019 CMP, serum or plasm a calcium 9.3 mg/dL 8.6-10 .4 normal Not Available [facility] [address] [place] [address], [address], 01/03/2019 02:09:10 01/02/2001/03/2019 CMP, serum or plasm a protein, total 6.9 g/dL 6.1-8. [address] [facility] [address] [place] [address], [address], 01/03/2019 02:09:10 01/02/2001/03/2019 CMP, serum or plasm a albumin 4.5 g/dL 3.6-5. [address] [facility] [address] [place] [address], [address], 01/03/2019 02:09:10 01/02/2001/03/2019 CMP, serum or plasm a globulin 2.4 g/dL_ (calc ) 1.9-3. 7 normal Not Available [facility] [address] [place] [address], [address], 01/03/2019 02:09:10 01/02/2001/03/2019 CMP, serum or plasm a albumin/glob ulin ratio 1.9 (calc ) 1.0-2. 5 normal Not Available [facility] [address] [place] [address], [address], 01/03/2019 02:09:10 01/02/2001/03/2019 CMP, serum or plasm a bilirubin, total 0.5 mg/dL 0.2-1. 2 normal Not Available [facility] [address] [place] [address], [address], 01/03/2019 02:09:10 01/02/2001/03/2019 CMP, serum or plasm a alkaline phosphatase 39 U/L 33-130 normal Not Available [facility] [address] [place] [address], [address], 01/03/2019 02:09:10 01/02/2001/03/2019 CMP, serum or plasm a AST 20 U/L 10-35 normal Not Available [facility] [address] [place] [address], [address], 01/03/2019 02:09:10 01/02/2001/03/2019 CMP, serum or plasm a ALT 21 U/L 6-29 normal Not Available [facility] [address] [place] [address], [address], 01/03/2019 02:09:10 01/02/2001/03/2019 CBC w/ auto diff white blood cell count 5.0 thous and/u L 3.8-10 .8 normal Not Available [facility] [address] [place] [address], [address], 01/03/2019 01:26:56 01/02/2001/03/2019 CBC w/ auto diff red blood cell count 4.37 montez on/uL 3.80-5 .10 normal Not Available [facility] [address] [place] [address], [address], 01/03/2019 01:26:56 01/02/2001/03/2019 CBC w/ auto diff hemoglobin 12.9 g/dL 11.7-1 5.5 normal Not Available [facility] [address] [place] [address], [address], 01/03/2019 01:26:56 01/02/2001/03/2019 CBC w/ auto diff hematocrit 39.1 % 35.0-4 5.0 normal Not Available [facility] [address] [place] [address], [address], 01/03/2019 01:26:56 01/02/2001/03/2019 CBC w/ auto diff MCV 89.5 fL 80.0-1 00.0 normal Not Available [facility] [address] [place] [address], [address], 01/03/2019 01:26:56 01/02/2001/03/2019 CBC w/ auto diff MCH 29.5 pg 27.0-3 3.0 normal Not Available [facility] [address] [place] [address], [address], 01/03/2019 01:26:56 01/02/2001/03/2019 CBC w/ auto diff MCHC 33.0 g/dL 32.0-3 6.0 normal Not Available [facility] [address] [place] [address], [address], 01/03/2019 01:26:56 01/02/2001/03/2019 CBC w/ auto diff RDW 12.0 % 11.0-1 5.0 normal Not Available [facility] [address] [place] [address], [address], 01/03/2019 01:26:56 01/02/2001/03/2019 CBC w/ auto diff platelet count 230 thous and/u L 140-40 0 normal Not Available [facility] [address] [place] [address], [address], 01/03/2019 01:26:56 01/02/2001/03/2019 CBC w/ auto diff MPV 9.3 fL 7.5-12 .5 normal Not Available [facility] [address] [place] [address], [address], 01/03/2019 01:26:56 01/02/2001/03/2019 CBC w/ auto diff absolute neutrophils 2765 cells /uL 1500-7 800 normal Not Available [facility] [address] [place] [address], [address], 01/03/2019 01:26:56 01/02/20 19 01/03/2019 CBC w/ auto diff absolute lymphocytes 1810 cells /uL 850-39 00 normal Not Available [facility] [address] [place] [address], [address], 01/03/2019 01:26:56 01/02/2001/03/2019 CBC w/ auto diff absolute monocytes 335 cells /uL 200-95 0 normal Not Available [facility] [address] [place] [address], [address], 01/03/2019 01:26:56 01/02/2001/03/2019 CBC w/ auto diff absolute eosinophils 60 cells /uL 15-500 normal Not Available [facility] [address] [place] [address], [address], 01/03/2019 01:26:56 01/02/2001/03/2019 CBC w/ auto diff absolute basophils 30 cells /uL 0-200 normal Not Available [facility] [address] [place] [address], [address], 01/03/2019 01:26:56 01/02/2001/03/2019 CBC w/ auto diff neutrophils 55.3 % normal Not Available [facility] [address] [place] [address], [address], 01/03/2019 01:26:56 01/02/2001/03/2019 CBC w/ auto diff lymphocytes 36.2 % normal Not Available [facility] [address] [place] [address], [address], 01/03/2019 01:26:56 01/02/2001/03/2019 CBC w/ auto diff monocytes 6.7 % normal Not Available [facility] [address] [place] [address], [address], 01/03/2019 01:26:56 01/02/2001/03/2019 CBC w/ auto diff eosinophils 1.2 % normal Not Available [facility] [address] [place], [address], 01/03/2019 01:26:56 01/02/2001/03/2019 CBC w/ auto diff basophils 0.6 % normal Not Available [facility] [place] [facility] [id number] [place], [address], 01/03/2019 01:26:56 01/02/2001/03/2019 vitam in D, 25-hy droxy , total , serum vitamin D,25-oh,tota l,ia 65 NG/mL 30-100 normal Vitam in D Statu s 25-OH Vitam in D: Defic iency : <20 ng/mL Insuf ficie ncy: 20 - 29 ng/mL Optim al: > or = 30 ng/mL For 25-OH Vitam in D testi ng on patie nts on D2-edward pplem entat ion and patie nts for whom quant itati on of D2 and D3 fract ions is requi red, the [facility](TM ) 25-OH VIT D, (D2,D 3), LC/MS /MS is recom amador d: order code 46066 (kiran ents >2yrs ). For more infor ellie michael on this test, go to: http: //jose daniel stern stdia gnost ics.c om/fa q/FAQ 163 (This link is being provi ded for infor ellie nal/e ducat ional purpo ses only. ) Not Available [facility] [address] [place] [address], [address], 01/03/2019 04:56:26 01/02/2001/02/2019 urina lysis , dipst ick Glucose Negati ve Not Available In-Office Order Internal Use Only DO Not Attach Compendium DO Not Attach Compendium, Do Not Delete/merge, [id number] 01/01/2019 15:14:15 01/02/20 19 01/02/2019 urina lysis , dipst ick Bilirubin Negati ve Not Available In-Office Order Internal Use Only DO Not Attach Compendium DO Not Attach Compendium, Do Not Delete/merge, [id number] 01/01/2019 15:14:15 01/02/20 19 01/02/2019 urina lysis , dipst ick Ketones Negati ve Not Available In-Office Order Internal Use Only DO Not Attach Compendium DO Not Attach Compendium, Do Not Delete/merge, 01/01/2019 15:14:15 01/02/20 19 01/02/2019 urina lysis , dipst ick SG 1.025 Not Available In-Office Order Internal Use Only DO Not Attach Compendium DO Not Attach Compendium, Do Not Delete/merge, 01/01/2019 15:14:15 01/02/20 19 01/02/2019 urina lysis , dipst ick Blood Negati ve Not Available In-Office Order Internal Use Only DO Not Attach Compendium DO Not Attach Compendium, Do Not Delete/merge, 01/01/2019 15:14:15 01/02/2001/02/2019 urina lysis , dipst ick pH 6.0 Not Available In-Office Order Internal Use Only DO Not Attach Compendium DO Not Attach Compendium, Do Not Delete/merge, 01/01/2019 15:14:15 01/02/20 19 01/02/2019 urina lysis , dipst ick Protein Negati ve Not Available In-Office Order Internal Use Only DO Not Attach Compendium DO Not Attach Compendium, Do Not Delete/merge, [id number] 01/01/2019 15:14:15 01/02/20 19 01/02/2019 urina lysis , dipst ick Urobilinogen 0.2 Not Available In-Of fice Order Internal Use Only DO Not Attach Compendium DO Not Attach Compendium, Do Not Delete/merge, 01/01/2019 15:14:15 01/02/20 19 01/02/2019 urina lysis , dipst ick Nitrites negati ve Not Available In-Office Order Internal Use Only DO Not Attach Compendium DO Not Attach Compendium, Do Not Delete/merge, [id number] 01/01/2019 15:14:15 01/02/20 19 01/02/2019 urina lysis , dipst ick Leukocytes Negati ve Not Available In-Office Order Internal Use Only DO Not Attach Compendium DO Not Attach Compendium, Do Not Delete/merge, [id number] 01/01/2019 15:14:15 01/02/20 19 01/02/2019 urina lysis , dipst ick Appearance Clear Not Available In-Offi ce Order Internal Use Only DO Not Attach Compendium DO Not Attach Compendium, Do Not Delete/merge, [id number] 01/01/2019 15:14:15 01/02/20 19 01/02/2019 urina lysis , dipst ick Color Yellow Not Available In-Office Order Internal Use Only DO Not Attach Compendium DO Not Attach Compendium, Do Not Delete/merge, [id number] 01/01/2019 15:14:15 01/14/20 20 01/15/2020 lipid panel , serum cholesterol, total 119 mg/dL <200 normal Not Available [facility] [address] [place], [address], 01/15/2020 04:27:40 01/14/20 20 01/15/2020 lipid panel , serum HDL cholesterol 51 mg/dL > or = 50 normal Not Available [facility] [address] [place], [address], 01/15/2020 04:27:40 01/14/20 20 01/15/2020 lipid panel , serum triglyceride s 71 mg/dL <150 normal Not Available [facility] [address] [place], [address], 01/15/2020 04:27:40 01/14/20 20 01/15/2020 lipid panel , serum LDL-choleste rol 53 mg/dL _(carlyn c) normal Refer ence range : <100 Tano able range <100 mg/dL for prima ry preve ntion ; <70 mg/dL for patie nts with CHD or diabe tic patie nts with > or = 2 CHD risk facto rs. LDL-C is now calcu lated using the Kelin n-Hop kins calcu reesepamela michael, which is a valid ated novel bernard sparks than the Fried aram clarissa ion in the estim ation of LDL-C . Kelin michael SS et al. RACHEL. 2013; 310(1 9): 2061- 2068 (http ://ed ucati on.Qu estFileblaze. com/f aq/FA Q164) Not Available [facility] [address] [place], [address], 01/15/2020 04:27:40 01/14/20 20 01/15/2020 lipid panel , serum chol/HDLC ratio 2.3 (calc ) <5.0 normal Not Available [facility] [address] [place], [address], 01/15/2020 04:27:40 01/14/20 20 01/15/2020 lipid panel , serum LDL/HDL ratio 1.0 (calc ) Below avera ge Risk: <2.34 [place] ge Risk: 2.35- 4.12 Moder ate Risk: 4.13- 5.56 High Risk: >5.57 Not Available [facility] [address] [place], [address], 01/15/2020 04:27:40 01/14/2001/15/2020 lipid panel , serum non HDL cholesterol 68 mg/dL _(carlyn c) <130 normal For patie nts with diabe darlene plus 1 major ASCVD risk facto r, treat ing to a non-H DL-C goal of <100 mg/dL (LDL- C of <70 mg/dL ) is consi dered a thera pekarla c optio n. Not Available [facility] [address] [place], [address], 01/15/2020 04:27:40 01/14/20 20 01/15/2020 CMP, serum or plasm a glucose 106 mg/dL 65-99 high Fasti ng refer ence inter lilliam For someo ne witho ut known diabe darlene, a gluco se value betwe en 100 and 125 mg/dL is consi stent with predi abete s and shoul d be confi rmed with a follo w-up test. Not Available [facility] [address] [place], [address], 01/15/2020 04:27:41 01/14/20 20 01/15/2020 CMP, serum or plasm a urea nitrogen (BUN) 18 mg/dL 7-25 normal Not Available [facility] [address] [place], [address], 01/15/2020 04:27:41 01/14/20 20 01/15/2020 CMP, serum or plasm a creatinine 0.66 mg/dL 0.50-1 .05 normal For patie nts >49 years of age, the refer ence limit for Creat inine is appro ximat jerod 13% highe r for peopl e ident ified as Afric an-Am tita n. Not Available [facility] [address] [place], [address], 01/15/2020 04:27:41 01/14/20 20 01/15/2020 CMP, serum or plasm a eGFR non-afr. cymraes 99 mL/mi n/1.7 3m2 > or = 60 normal Not Available [facility] [address] [place], [address], 01/15/2020 04:27:41 01/14/20 20 01/15/2020 CMP, serum or plasm a eGFR 114 mL/mi n/1.7 3m2 > or = 60 normal Not Available [facility] [address] [place], [address], 01/15/2020 04:27:41 01/14/20 20 01/15/2020 CMP, serum or plasm a BUN/creatini ne ratio NOT APPLIC ABLE (calc ) 6-22 Not Available [facility] [address] [place], [address], 01/15/2020 04:27:41 01/14/20 20 01/15/2020 CMP, serum or plasm a sodium 142 mmol/ L 135-14 6 normal Not Available [facility] [address] [place] [address], [address], 01/15/2020 04:27:41 01/14/20 20 01/15/2020 CMP, serum or plasm a potassium 4.1 mmol/ L 3.5-5. 3 normal Not Available [facility] [address] [place] [address], [address], 01/15/2020 04:27:41 01/14/20 20 01/15/2020 CMP, serum or plasm a chloride 106 mmol/ L 98-110 normal Not Available [facility] [address] [place] [address], [address], 01/15/2020 04:27:41 01/14/20 20 01/15/2020 CMP, serum or plasm a carbon dioxide 28 mmol/ L 20-32 normal Not Available [facility] [address] [place] [address], [address], 01/15/2020 04:27:41 01/14/20 20 01/15/2020 CMP, serum or plasm a calcium 9.4 mg/dL 8.6-10 .4 normal Not Available [facility] [address] [place] [address], [address], 01/15/2020 04:27:41 01/14/20 20 01/15/2020 CMP, serum or plasm a protein, total 6.6 g/dL 6.1-8. 1 normal Not Available [facility] [address] [place] [address], [address], 01/15/2020 04:27:41 01/14/20 20 01/15/2020 CMP, serum or plasm a albumin 4.3 g/dL 3.6-5. 1 normal Not Available [facility] [address] [place] [address], [address], 01/15/2020 04:27:41 01/14/20 20 01/15/2020 CMP, serum or plasm a globulin 2.3 g/dL_ (calc ) 1.9-3. 7 normal Not Available [facility] [address] [place] [address], [address], 01/15/2020 04:27:41 01/14/20 20 01/15/2020 CMP, serum or plasm a albumin/glob ulin ratio 1.9 (calc ) 1.0-2. 5 normal Not Available [facility] [address] [place] [address], [address], 01/15/2020 04:27:41 01/14/20 20 01/15/2020 CMP, serum or plasm a bilirubin, total 0.4 mg/dL 0.2-1. 2 normal Not Available [facility] [address] [place] [address], [address], 01/15/2020 04:27:41 01/14/20 20 01/15/2020 CMP, serum or plasm a alkaline phosphatase 54 U/L 37-153 normal Not Available [facility] [address] [place] [address], [address], 01/15/2020 04:27:41 01/14/20 20 01/15/2020 CMP, serum or plasm a AST 18 U/L 10-35 normal Not Available [facility] [address] [place] [address], [address], 01/15/2020 04:27:41 01/14/2001/15/2020 CMP, serum or plasm a ALT 23 U/L 6-29 normal Not Available [facility] [address] [place] [address], [address], 01/15/2020 04:27:41 01/14/20 20 01/21/2020 insul in, free, serum insulin, free (bioactive) 7.0 uIU/m L 1.5-14 .9 Insul in level s vary widel y in speci mens taken from non-f astin g indiv idual s. Insul in analo gues may demon strat e non-l inear cross -reac tivit y in this assay . Inter pret resul ts accor dingwin y. Not Available [facility] [address] [place], [address], 01/21/2020 03:32:49 01/14/2001/15/2020 CBC w/ auto diff white blood cell count 5.6 thous and/u L 3.8-10 .8 normal Not Available [facility] [address] [place], [address], 01/15/2020 03:44:41 01/14/2001/15/2020 CBC w/ auto diff red blood cell count 4.22 montez on/uL 3.80-5 .10 normal Not Available [facility] [address] [place] [address], [address], 01/15/2020 03:44:41 01/14/20 20 01/15/2020 CBC w/ auto diff hemoglobin 12.5 g/dL 11.7-1 5.5 normal Not Available [facility] [address] [place] [address], [address], 01/15/2020 03:44:41 01/14/20 20 01/15/2020 CBC w/ auto diff hematocrit 38.2 % 35.0-4 5.0 normal Not Available [facility] [address] [place] [address], [address], 01/15/2020 03:44:41 01/14/20 20 01/15/2020 CBC w/ auto diff MCV 90.5 fL 80.0-1 00.0 normal Not Available [facility] [address] [place], [address], 01/15/2020 03:44:41 01/14/20 20 01/15/2020 CBC w/ auto diff MCH 29.6 pg 27.0-3 3.0 normal Not Available [facility] [address] [place], [address], 01/15/2020 03:44:41 01/14/20 20 01/15/2020 CBC w/ auto diff MCHC 32.7 g/dL 32.0-3 6.0 normal Not Available [facility] [address] [place], [address], 01/15/2020 03:44:41 01/14/20 20 01/15/2020 CBC w/ auto diff RDW 12.2 % 11.0-1 5.0 normal Not Available [facility] [address] [place] [address], [address], 01/15/2020 03:44:41 01/14/20 20 01/15/2020 CBC w/ auto diff platelet count 251 thous and/u L 140-40 0 normal Not Available [facility] [address] [place] [address], [address], 01/15/2020 03:44:41 01/14/20 20 01/15/2020 CBC w/ auto diff MPV 9.7 fL 7.5-12 .5 normal Not Available [facility] [address] [place] [address], [address], 01/15/2020 03:44:41 01/14/20 20 01/15/2020 CBC w/ auto diff absolute neutrophils 3875 cells /uL 1500-7 800 normal Not Available [facility] [address] [place] [address], [address], 01/15/2020 03:44:41 01/14/20 20 01/15/2020 CBC w/ auto diff absolute lymphocytes 1327 cells /uL 850-39 00 normal Not Available [facility] [address] [place] [address], [address], 01/15/2020 03:44:41 01/14/20 20 01/15/2020 CBC w/ auto diff absolute monocytes 330 cells /uL 200-95 0 normal Not Available [facility] [address] [place] [address], [address], 01/15/2020 03:44:41 01/14/20 20 01/15/2020 CBC w/ auto diff absolute eosinophils 39 cells /uL 15-[address] [facility] [address] [place] [address], [address], 01/15/2020 03:44:41 01/14/20 20 01/15/2020 CBC w/ auto diff absolute basophils 28 cells /uL 0-[address] [facility] [address] [place] [address], [address], 01/15/2020 03:44:41 01/14/20 20 01/15/2020 CBC w/ auto diff neutrophils 69.2 % normal Not Available [facility] [address] [place] [address], [address], 01/15/2020 03:44:41 01/14/20 20 01/15/2020 CBC w/ auto diff lymphocytes 23.7 % normal Not Available [facility] [address] [place] [address], [address], 01/15/2020 03:44:41 01/14/20 20 01/15/2020 CBC w/ auto diff monocytes 5.9 % normal Not Available [facility] [address] [place] [address], [address], 01/15/2020 03:44:41 01/14/20 20 01/15/2020 CBC w/ auto diff eosinophils 0.7 % normal Not Available [facility] [address] [place] [address], [address], 01/15/2020 03:44:41 01/14/20 20 01/15/2020 CBC w/ auto diff basophils 0.5 % normal Not Available [facility] [address] [place] [address], [address], 01/15/2020 03:44:41 01/14/20 20 01/15/2020 insul in, serum insulin 4.1 uIU/m L normal Refer ence Range < or = 19.6 Risk: Optim al < or = 19.6 Moder ate NA High >19.6 Adult cardi ovasc ular event risk categ ory cut point s (opti mal, moder ate, high) are based on [facility] popul ation data from 11/14 11. This insul in assay shows stron g cross -reac tivit y for some insul in analo gs (lisp ro, aspar t, and glarg ine) and much lower cross -reac tivit y with other s (dete toma, gluli sine) . Not Available [facility] [address] [place], [address], 01/15/2020 11:35:53 01/14/20 20 01/15/2020 TSH, serum or plasm a TSH 1.21 mIU/L 0.40-4 .50 normal Not Available [facility] [address] [place], [address], 01/15/2020 03:04:38 01/14/20 20 01/14/2020 HbA1c (hemo globi n A1c), blood HbA1c 6.3 Not Available In-Office Order Internal Use Only DO Not Attach Compendium DO Not Attach Compendium, Do Not Delete/merge, [id number] 01/13/2020 14:42:51 01/14/2001/14/2020 urina lysis , dipst ick Glucose Negati ve Not Available In-Office Order Internal Use Only DO Not Attach Compendium DO Not Attach Compendium, Do Not Delete/merge, [id number] 01/13/2020 14:41:57 01/14/2001/14/2020 urina lysis , dipst ick Bilirubin Negati ve Not Available In-Office Order Internal Use Only DO Not Attach Compendium DO Not Attach Compendium, Do Not Delete/merge, 01/13/2020 14:41:57 01/14/2001/14/2020 urina lysis , dipst ick Ketones Negati ve Not Available In-Office Order Internal Use Only DO Not Attach Compendium DO Not Attach Compendium, Do Not Delete/merge, [id number] 01/13/2020 14:41:57 01/14/20 20 01/14/2020 urina lysis , dipst ick SG 1.025 Not Available In-Office Order Internal Use Only DO Not Attach Compendium DO Not Attach Compendium, Do Not Delete/merge, 01/13/2020 14:41:57 01/14/20 20 01/14/2020 urina lysis , dipst ick Blood Negati ve Not Available In-Office Order Internal Use Only DO Not Attach Compendium DO Not Attach Compendium, Do Not Delete/merge, 01/13/2020 14:41:57 01/14/20 20 01/14/2020 urina lysis , dipst ick pH 5.5 Not Available In-Office Order Internal Use Only DO Not Attach Compendium DO Not Attach Compendium, Do Not Delete/merge, 01/13/2020 14:41:57 01/14/20 20 01/14/2020 urina lysis , dipst ick Protein Negati ve Not Available In-Office Order Internal Use Only DO Not Attach Compendium DO Not Attach Compendium, Do Not Delete/merge, 01/13/2020 14:41:57 01/14/20 20 01/14/2020 urina lysis , dipst ick Urobilinogen 0.2 Not Available In-Of fice Order Internal Use Only DO Not Attach Compendium DO Not Attach Compendium, Do Not Delete/merge, 01/13/2020 14:41:57 01/14/20 20 01/14/2020 urina lysis , dipst ick Nitrites negati ve Not Available In-Office Order Internal Use Only DO Not Attach Compendium DO Not Attach Compendium, Do Not Delete/merge, 01/13/2020 14:41:57 01/14/20 20 01/14/2020 urina lysis , dipst ick Leukocytes Negati ve Not Available In-Office Order Internal Use Only DO Not Attach Compendium DO Not Attach Compendium, Do Not Delete/merge, 01/13/2020 14:41:57 01/14/20 20 01/14/2020 urina lysis , dipst ick Appearance Clear Not Available In-Offi ce Order Internal Use Only DO Not Attach Compendium DO Not Attach Compendium, Do Not Delete/merge, [id number] 01/13/2020 14:41:57 01/14/20 20 01/14/2020 urina lysis , dipst ick Color Yellow Not Available In-Office Order Internal Use Only DO Not Attach Compendium DO Not Attach Compendium, Do Not Delete/merge, [id number] 01/13/2020 14:41:57 01/30/20 19 XR, chest No observ ation record ed. [email or web address] Not Available 2018 07:27:19 01/30/20 19 XR, chest No observ ation record ed. In-Office Order Internal Use Only DO Not Attach Compendium DO Not Attach Compendium, Do Not Delete/merge, [id number] 01/30/2019 07:27:19 02/11/20 19 02/10/2019 MAMMO , scree owen, digit al, bilat eral No observ ation record ed. [email or web address] [facility] [address] [place] [address], [place], [address], 02/12/2019 09:55:38 02/25/20 19 XR, chest No observ ation record ed. In-Office Order Internal Use Only DO Not Attach Compendium DO Not Attach Compendium, Do Not Delete/merge, [id number] 03/04/2019 11:27:32 12/24/19 20 US, abdom en + pelvi s No observ ation record ed. [email or web address] Not Available 2019 08:33:44 01/21/20 20 rhyth m strip , EKG* No observ ation record ed. [email or web address] Not Available 2019 17:00:09 Result Notes None recorded. Problems Name Problem SNOMED Code Status Onset Date Resolution Date Notes Provider Name and Address Organization Details Recorded Time Essential hypertension 13420525 Active [address] [place], [address] , [facility] 6 20:54:15 Sinus bradycardia 80585835 Active [address] [place], [address] , [facility] 6 20:54:17 Mixed hyperlipidemi a 630027602 [place], [address] , [facility] 6 20:54:24 Impaired fasting glycemia 370846728 Active [place], [address] , [facility] 0 16:58:23 Prediabetes 353644878 Active [place], [address] , [facility] 0 16:58:35 Problem Notes None recorded. Procedures Surgical History Date Name Laterality Status Provider Name and Address Organization Details Recorded Time 06/14/20 16 Dietary Counseling completed SUZETTE Watt, [place], [address], [facility] 06/14/2016 21:05:22 11/26/19 13 Cholecystectomy completed SUZETTE Watt, [place], [address], [facility] 12/27/2016 21:26:43 Hysterectomy completed SUZETTE Watt, [place], [address], [facility] 12/27/2016 21:26:31 Imaging Results Imaging Date Name Status LastModified by Organiz ation Details LastModified Time 01/29/2019 XR, chest completed Information no t available 01/30/2019 07:27:19 01/29/2019 XR, chest completed In-Office Orde r Internal Use Only DO Not Attach Compendium DO Not Attach Compendium, Do Not Delete/merge, [id number] 01/30/2019 07:27:19 02/10/2019 MAMMO, screening, digital, bilateral completed [facility] [address] [place] [address], [place], [address], 02/12/2019 09:55:38 02/24/2019 XR, chest completed [email or web address] In-Office Orde r Internal Use Only DO Not Attach Compendium DO Not Attach Compendium, Do Not Delete/merge, [id number] 03/04/2019 11:27:32 12/24/2019 US, abdomen + pelvis completed [email or web address] Information not available 01/08/2020 08:33:44 01/21/2020 rhythm strip, EKG* completed [email or web address] Information not available 01/27/2020 17:00:09 Procedure Notes None recorded. Medical Equipment None Reported. Allergies No known drug allergies Medications Name Sig Start Date Stop Date Status Note LastModified by Organization Details LastModified Time promethazin e-DM 6.25 mg-15 mg/5 mL oral syrup Take 5 mL every 6 hours by oral route as needed. 02/24 completed Not Available Not Available Not Available doxycycline hyclate 100 mg capsule Take 1 capsule twice a day by oral route for 7 days. 12/22 completed Not Available Not Available Not Available atorvastati n 20 mg tablet Take 1 tablet every day by oral route. active Not Available Not Available No t Available azithromyci n 250 mg tablet TAKE 2 TABLETS (500 MG) BY ORAL ROUTE ONCE DAILY FOR 1 DAY THEN 1 TABLET (250 MG) BY ORAL ROUTE ONCE DAILY FOR 4 DAYS 02/24 completed Not Available Not Available Not Available benzonatate 200 mg capsule Take 1 capsule 3 times a day by oral route as needed for 7 days. 12/22 completed Not Available Not Available Not Available prednisone 20 mg tablet Take 3 tablets every day by oral route for 5 days. 02/24 completed Not Available Not Available Not Available penicillin V potassium 500 mg tablet Take 1 tablet every 8 hours by oral route for 10 days. 12/08 completed Not Available Not Available Not Available prednisone 10 mg tablets in a dose pack Take as directed on package insert with food. 01/22 completed Not Available Not Available Not Available ropinirole 0.25 mg tablet Take 1 tablet qhs x 2 days, then increase to 2 tablets qhs. 12/22 completed Not Available Not Available Not Available losartan 25 mg tablet Take 2 tablets every day by oral route for 90 days. active Not Available Not Available No t Available hydrocodone -homatropin e 5 mg-1.5 mg/5 mL oral solution Take 5 mL every 4 hours by oral route as needed for 5 days. 02/24 completed Not Available Not Available Not Available Cheratussin AC 10 mg-100 mg/5 mL oral liquid Take 10 mL every 8 hours by oral route as needed for 10 days. 12/08 completed Not Available Not Available Not Available ipratropium bromide 42 mcg (0.06 %) nasal spray [place] 2 sprays 3 times a day by intranasa l route. 12/08 completed Not Available Not Available Not Available fluticasone propionate 50 mcg/actuati on nasal spray,suspe nsion [place] 1 spray every day by intranasa l route. 12/22 completed Not Available Not Available Not Available candesartan 8 mg tablet active Not Available Not Available Not Available cyclobenzap rine 5 mg tablet Take 1 tablet 3 times a day by oral route as needed for 3 days. 01/01 completed Not Available Not Available Not Available candesartan 8mg 12/08 completed Not Available Not Available Not Available Breo Ellipta 100 mcg-25 mcg/dose powder for inhalation Inhale 1 puff every day by inhalatio n route. 2018 active Not Available Not Available Not Avai lable Vitals Date Recorded Body height Body mass index (BMI) Body weight Heart rate Body temperature Oxygen saturation Oxygen saturation in Arterial blood by Pulse oximetry Respiratory rate Systolic blood pressure Diastolic blood pressure Provider Name and Address Organization Details Last Updated DateTime 9 152.4 cm 23.2 kg/m2 10684.0 6 g 63 /min 97.6 [degF] 97 % 97 % 18 /min 143 mm[Hg] 86 mm[Hg] Yumiko alonso [place] [facility] 9 09:09:15 Date Recorded Body height Body mass index (BMI) Body weight Heart rate Body temperature Oxygen saturation Oxygen saturation in Arterial blood by Pulse oximetry Respiratory rate Systolic blood pressure Diastolic blood pressure Provider Name and Address Organization Details Last Updated DateTime 9 152.4 cm 23.4 kg/m2 60352.6 5 g 70 /min 98.9 [degF] 97 % 97 % 17 /min 136 mm[Hg] 89 mm[Hg] Evelyn Ramsey [place] [facility] 9 15:53:59 Date Recorded Body height Body mass index (BMI) Body weight Heart rate Body temperature Oxygen saturation Oxygen saturation in Arterial blood by Pulse oximetry Respiratory rate Systolic blood pressure Diastolic blood pressure Provider Name and Address Organization Details Last Updated DateTime 0 152.4 cm 22.6 kg/m2 20481.2 8 g 71 /min 98 [degF] 97 % 97 % 18 /min 141 mm[Hg] 88 mm[Hg] Gracielasherly SandraMcgowan [place] [facility] 0 14:33:08 Date Recorded Body height Body mass index (BMI) Body weight Heart rate Body temperature Oxygen saturation Oxygen saturation in Arterial blood by Pulse oximetry Respiratory rate Systolic blood pressure Diastolic blood pressure Provider Name and Address Organization Details Last Updated DateTime 0 152.4 cm 22.8 kg/m2 16967.3 1 g 69 /min 97.7 [degF] 96 % 96 % 18 /min 137 mm[Hg] 79 mm[Hg] Tita Lyle [place] [facility] 0 09:53:14 Date Recorded Body height Body mass index (BMI) Body weight Heart rate Body temperature Oxygen saturation Oxygen saturation in Arterial blood by Pulse oximetry Respiratory rate Systolic blood pressure Diastolic blood pressure Provider Name and Address Organization Details Last Updated DateTime 0 152.4 cm 23 kg/m2 23640.1 8 g 64 /min 97.8 [degF] 97 % 97 % 18 /min 141 mm[Hg] 82 mm[Hg] Graciela Mcgowan [place] [facility] 0 09:35:28 Social History Question Answer Notes LastModified by Organizat ion Details LastModified Time Tobacco Smoking Status Never Smoker Jj soriano, [place] [facility] 06/07/2016 10:23:28 Do You Have An Advance Directive? No ivy Information not available 06/07/2016 What Is Your Level Of Alcohol Consumption? None [email or web address] Information not available 06/07/2016 How Many Years Have You Consumed Alcohol? 0 [email or web address] Information not available 06/07/2016 Auto Related Injury? No [email or web address] Information not available 06/07/2016 Are You Blind Or Do You Have Difficulty Seeing? No [email or web address] Information not available 06/07/2016 What Is Your Level Of Caffeine Consumption? None [email or web address] Information not available 06/07/2016 How Much Tobacco Do You Chew? 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 No [email or web address] Information not available 06/07/2016 Are You Deaf Or Do You Have Serious Difficulty Hearing? No [email or web address] Information not available 06/07/2016 What Type Of Diet Are You Following? REGULAR [email or web address] Information not available 06/07/2016 Which Illicit Or Recreational Drugs Have You Used? None Information not available 06/14/2016 Have You Directly Handled Bats, Rodents, Or Primates From Ebola Endemic Areas? No [email or web address] Information not available 06/07/2016 Have You Had Contact With Blood, Bodily Fluids, Or Human Remains Of A Patient Known To Have Or Suspected To Have Ebola Virus Disease? No [email or web address] Information not available 06/07/2016 Do You Reside In Or Have You Traveled To An Area Where Ebola Virus Transmission Is Active? Yes [email or web address] Information not available 06/07/2016 Education Less Than 8th Grade [email or web address] Information not available 06/07/2016 What Is Your Occupation? N/a [email or web address] Information not available 06/07/2016 Self Referral To Care Outside [facility]? No [email or web address] Information not available 06/07/2016 Marital Status [email or web address] Informat ion not available 06/07/2016 What Was The Date Of Your Most Recent Tobacco Screening? 03/06/2019 Information not available 06/19/2019 Performs Monthly Self-breast Exam? No [email or web address] Information no t available 06/07/2016 How Much Tobacco Do You Smoke? No [email or web address] Information not available 06/07/2016 General Stress Level Low Information not available 06/14/2016 Sex: Unknown Functional Status Question Answer Note LastModified by Organization D etails LastModified Time Are you able to care for yourself? Yes [email or web address] Information n ot available 06/07/2016 What is your exercise level? None ivy Information not available 06/07/2016 Mental Status None recorded. Family History Relationship Description Onset Age of this Age Resolved Age Notes LastModified by Organization Details LastModified Time Father Heart disease ivy Not available 10:22:28 Mother Diabetes mellitus ivy Not available 10:22:52 Medical History Condition Response Coronary Artery Disease N Gout N Kidney Stones N Hyperthyroidism N Erectile Dysfunction N Depression N COPD N Developmental or Behavioral Disorders N Eczema, Hives or other skin conditions N Anxiety Disorder N Muscle, Joint, or Bone Problems N Vision or Eye Problems N Arthritis N Congenital Anomalies N Cancer N Stroke N Bladder or Kidney Problems N Liver Disease N Fibromyalgia N Kidney Disease N Ear or Hearing Problems N Hypogonadism N ADD or ADHD N Thyroid Problems N Skin Problems N Anemia N Constipation N Diabetes N Seizures/Epilepsy N Tuberculosis N Diverticulitis N Asthma N Allergies N GERD/Reflux N Heart Disease N Pulmonary Embolism N Osteoporosis N Gynecological History Statement/Question Response Post Menopausal Bleeding N STIs/STDs N HPV Vaccine N Current Control Method None Age at First Child 29 If Post Menopausal, Age at Menopause 35 Date of Last Colonoscopy Sexually Active? N Menses Monthly N Date of Last Pap Smear Sexual Problems? N LMP Unknown Hormone Replacement Therapy N Obstetrics History GPAL:G 1 P 0 0 0 0 Past Encounters Encounter ID Performer Location Encounter Start Date Encounter Closed Date Diagnosis/Indication Diagnosis SNOMED-CT Code Diagnosis ICD10 Code Diagnosis Note [id number] Alecia Cortes PA-C [facility] [facility] [address] [place] [address] 06/07/2016 10:01:02 06/07/2016 11:26:52 Essential hypertension 65763484 I10 Controlled on meds. Pt does not know name of meds-in Peruvian. Daughter will try to translate meds and bring to next appt. Body mass index 20-24 - normal 351876058 Z68.21 Lipoma of skin 060346677 D17.1 movable, rubbery nodule palpated on right side of trunk region. No pain/tende rness. No erythema/w armth. Reports it has been present since 2011. [id number] Alecia Cortes PA-C [facility] [place] [facility] [place] [address] 06/14/2016 14:16:11 06/14/2016 16:39:48 Adult health examination 968413252 Z00.00 Mixed hyperlipidemia 267 670932 E78.2 Total chol: 192, Trigs: 97, HDL: 47, LDL: 131. Discussed low fat/chol diet and exercise. Sinus bradycardia 304050 05 R00.1 Asymptomat ic. Not a new finding per pt and daughter. Essential hypertension 56925155 I10 Controlled . [id number] Alecia Cortes PA-C [facility] [place] [address] [address] 10/17/2016 14:49:01 10/17/2016 15:49:18 Cough 99108450 R05 Lungs CTAB. Will give benzonatat e to use prn for cough. PT voiced understand ing . Pain in throat 125321017 R07.0 Most likely due to PND. No erythema, exudates or tonsil enlargemen t noted. Pt instructed to drink plenty of room temp beverages and to gargle with warm water and salt. Pt voiced understand ing and is in agreement to tx plan. Posterior rhinorrhea 758 22605 R09.82 PND noted on exam. Will give ipratropiu m to use. Pt voiced understand ing. [id number] Dania Bailey [facility] [place] [address] [address] 10/20/2016 08:31:51 10/20/2016 14:43:17 Cough 39700043 R05 Acute pharyngitis 855726 003 J02.9 Streptococ carlyn sore throat 62213728 J02.0 Headache 97050923 R51 Motrin OTC as directed for myalgias and fever. Fatigue 08350354 R53.83 [id number] Alecia Cortes PA-C [facility] [place] [address] [address] 12/08/2016 10:11:55 12/08/2016 11:24:29 Essential hypertension 57760188 I10 Controlled . Pt is not needing refills of meds at this time. Instructed to RTC for fasting labs/revie w. Pt voiced understand ing and is in agreement to tx plan. Screening for malignant neoplasm of breast 826782349 Z12.31 Referral placed for screening mammogram. Screening for malignant neoplasm of colon 192260534 Z12.11 Referral placed for screening colonoscop y. Vaccine de clined by patient 5760789827 02 Z28.21 Pt refused flu vaccine and Tdap. Lipoma of back 039461888 D17.1 As noted above. Multiple joint pain 3567 8005 M25.50 medial knees b/l and lateral epicondyle region b/l; no hand or wrist TTP. Will draw inflammato ry markers with upcoming labs. Pt voiced understand ing and is in agreement to tx plan. Mass of soft tissue 4449 92907 R22.9 movable, rubbery nodule palpated on right side of trunk region. No pain/tende rness. No erythema/w armth. Reports it has been present since 2011. No change from last visit. Will order u/s to further assess nodule. Pt voiced understand ing and is in agreement to tx plan. [id number] [facility] [address] [address] 12/20/2016 09:57:17 12/20/2016 10:54:10 Impaired fasting glycemia 264671419 R73.01 Fasting glucose: 107. Educated on low sugar/carb /starch diet and exercise. Pt/malcolm kapadia voiced understand ing and are in agreement to tx plan. Mixed hyperlipidemia 267 842693 E78.2 Improved! Total chol: 182 from 192, Trigs: 53 from 97, HDL: 51 from 47, LDL: 115 from 131. Discussed low fat/chol diet and exercise. Raised ant inuclear antibody 899539219 R76.0 Positive JOEL with homogenous JOEL pattern. Will refer to rheumatolo gy for further evaluation . Pt/malcolm kapadia voiced understand ing and are in agreement to tx plan. Essential hypertension 45696696 I10 Controlled . [id number] Alecia Cortes PA-C [facility] [place] [address] [address] 12/27/2016 09:18:30 12/27/2016 10:54:29 Lipoma of skin 484198615 D17.1 movable, rubbery nodule palpated on right side of trunk region. U/S reveals a 3.1 x 1..3 x 2.9 cm slightly heterogeno us and echogenic solid appearing mass. Will refer to dermatolog y for further evaluation . Pt/malcolm kapadia voiced understand ing. Gynecologi c examination 39994708 Z01.419 Bacterial disease screening 493812386 Z11.2 History of hysterectomy 344255387 Z90.711 [id number] SUZETTE Watt [address] [address] 03/22/2017 08:48:51 03/22/2017 09:38:27 Lumbago with sciatica 076194504 M54.42 Steroid dose pack given. Instructed to ice prn and to continue chiro care. Pt/malcolm kapadia voiced understand ing and are in agreement to tx plan. Spasm of back muscles 20 9509737 M62.830 Flexeril given to use prn. Sedation precaution s given. Pt/malcolm kapadia voiced understand ing and are in agreement to tx plan. [id number] SUZETTE Watt [address] [address] 12/21/2017 15:02:26 12/21/2017 15:58:03 Cramp in lower limb 441966466 R25.2 Will have pt RTC for labs. Advised pt to stretch daily and to increase water intake. Will tx as indicated pending labs. Pt voiced understand ing. Multiple joint pain 3567 8005 M25.50 Will have pt RTC for labs. Will refer back to rheumatolo gy pending lab results. Pt/malcolm kapadia voiced understand ing. Paresthesi a of lower extremity 980390471 R20.2 Tingling sensation of lower distal extremitie s reported by pt. [id number] SUZETTE Watt [address] [address] 12/28/2017 08:44:08 12/28/2017 10:36:25 Adult health examination 870418837 Z00.00 Restless legs 08553508 G 25.81 Will try on ropinirole qhs. Instructed to RTC for f/u on medication /if sxs persist or worsen. Pt/malcolm kapadia voiced understand ing. Pain in left knee 918784 8747 22045 M25.562 No bony abnormalit ies noted on 2 views left knee x-ray. Referral to ortho placed. Multiple joint pain 3567 8005 M25.50 Referral to rheumatolo gy placed to be further assessed as pt never followed up. Screening for malignant neoplasm of breast 632354551 Z12.31 Referral placed for screening mammogram. Lumbago with sciatica 20 8243078 M54.42 Steroid dose pack given. Instructed to ice prn and stretch. Pt/malcolm kapadia voiced understand ing and are in agreement to tx plan. Impaired f asting glycemia 551007088 R73.01 Fasting glucose: 101. HbA1c: 5.6%. Educated on low sugar/carb /starch diet and exercise. Pt/malcolm kapadia voiced understand ing and are in agreement to tx plan. [id number] Alecia Cortes PA-C [facility] [address] [facility] [place] [address] 01/15/2019 08:52:56 01/27/2019 16:12:40 Adult health examination 848559952 Z00.00 Screening for malignant neoplasm of breast 501428092 Z12.31 Essential hypertension 68811979 I10 Controlled . Instructed to adhere to low fat/calori e/salt diet and exercise, avoid caffeine, and keep log of BPs at home. Advised to RTC for readings consistent ly > 130/80. Pt voiced understand ing and is in agreement to tx plan. Lipoma of back 554561330 D17.1 Will refer to gen surgery per pt request. Mixed hyperlipidemia 267 992784 E78.2 Controlled . TC: 183; HDL: 47; Trigs: 85; LDL: 118. [id number] [facility] [address] [facility] [place] [address] 01/27/2019 09:27:34 04/04/2019 11:04:18 Pain in throat 828235056 R07.0 salt water gargles USE OF RECOMMENDE D AND/OR PRESENTLY USED ACUTE/MAIN TENANCE OTC MEDICATION S STRESSED AND DISCUSSED IN DETAIL... Please consult our office promptly if you develop any of the following symptoms: 1. A fever of at least 101? ? ?F or 38.4? ? ?C 2. Throat pain that is severe or does not start to improve within 5 to 7 days Call for an ambulance or go to the emergency room if you: 1. Have trouble breathing 2. Cannot control your saliva (drooling) due to difficulty swallowing 3. Have swelling of the neck or tongue 4. Cannot move your neck or have trouble opening your mouth LAB RESULTS AND FULL IMPLICATIO NS CAREFULLY DISCUSSED. ..ALL OF PATIENT'S QUESTIONS ANSWERED SATISFACTO SHAKEEL.... Nasal congestion 9825224 0 R09.81 COMPREHENS ANGELICA DIFFERENTI AL DIAGNOSES/ MULTIPLE ETIOLOGIES CONSIDERED AND DISCUSSED WITH PATIENT... . DOSING, BENEFITS, CONTRAINDI CATIONS/CA UTIONS, ADVERSE REACTIONS, POSSIBLE DRUG INTERACTIO NS, AND SAFETY/MON ITORING INFO ALL DISCUSSED WITH PATIENT AND PATIENT UNDERSTAND S AND AGREES TO START MEDICATION (S) PRESCRIBED . Productive cough 3177691 5 R05 COMPREHENS ANGELICA DIFFERENTI AL DIAGNOSES/ MULTIPLE ETIOLOGIES CONSIDERED AND DISCUSSED WITH PATIENT... . DOSING, BENEFITS, CONTRAINDI CATIONS/CA UTIONS, ADVERSE REACTIONS, POSSIBLE DRUG INTERACTIO NS, AND SAFETY/MON ITORING INFO ALL DISCUSSED WITH PATIENT AND PATIENT UNDERSTAND S AND AGREES TO START MEDICATION (S) PRESCRIBED . Headache 26504303 R51 Pt has no new onset headache or worst headache of their lives concerning for a subarachno id hemorrhage or intracrani al bleed. COMPREHENS ANGELICA DIFFERENTI AL DIAGNOSES/ MULTIPLE ETIOLOGIES CONSIDERED AND DISCUSSED WITH PATIENT... . DOSING, BENEFITS, CONTRAINDI CATIONS/CA UTIONS, ADVERSE REACTIONS, POSSIBLE DRUG INTERACTIO NS, AND SAFETY/MON ITORING INFO ALL DISCUSSED WITH PATIENT AND PATIENT UNDERSTAND S AND AGREES TO START MEDICATION (S) PRESCRIBED . USE OF RECOMMENDE D AND/OR PRESENTLY USED ACUTE/MAIN TENANCE OTC MEDICATION S STRESSED AND DISCUSSED IN DETAIL... PATIENT IS INSTRUCTED TO FOLLOW UP IMMEDIATEL Y TO THE ED WITH ANY INCREASING PAIN AND/OR INTENSITY OF HEADACHE, CHANGE IN CHARACTER OF HEADACHE, UNRELENTIN G, UNRESOLVAB LE, PROGRESSIV E CERDA...EYE PAIN, NECK PAIN, POSITIONAL /POSTURAL PAIN, NUMBNESS, WEAKNESS, PARAESTHES IAS, FEVER, CHILLS, RASH, ETC.... DISCUSSED. [id number] Octavio Jennings MD [facility] [address] [place] [address] 01/29/2019 08:47:07 04/04/2019 11:11:24 Headache 86479400 R51 Pt has no new onset headache or worst headache of their lives concerning for a subarachno id hemorrhage or intracrani al bleed. COMPREHENS ANGELICA DIFFERENTI AL DIAGNOSES/ MULTIPLE ETIOLOGIES CONSIDERED AND DISCUSSED WITH PATIENT... . DOSING, BENEFITS, CONTRAINDI CATIONS/CA UTIONS, ADVERSE REACTIONS, POSSIBLE DRUG INTERACTIO NS, AND SAFETY/MON ITORING INFO ALL DISCUSSED WITH PATIENT AND PATIENT UNDERSTAND S AND AGREES TO START MEDICATION (S) PRESCRIBED . USE OF RECOMMENDE D AND/OR PRESENTLY USED ACUTE/MAIN TENANCE OTC MEDICATION S STRESSED AND DISCUSSED IN DETAIL... PATIENT IS INSTRUCTED TO FOLLOW UP IMMEDIATEL Y TO THE ED WITH ANY INCREASING PAIN AND/OR INTENSITY OF HEADACHE, CHANGE IN CHARACTER OF HEADACHE, UNRELENTIN G, UNRESOLVAB LE, PROGRESSIV E CERDA...EYE PAIN, NECK PAIN, POSITIONAL /POSTURAL PAIN, NUMBNESS, WEAKNESS, PARAESTHES IAS, FEVER, CHILLS, RASH, ETC.... DISCUSSED. Pain in throat 857757948 R07.0 Please consult our office promptly if you develop any of the following symptoms: 1. A fever of at least 101? ? ?F or 38.4? ? ?C 2. Throat pain that is severe or does not start to improve within 5 to 7 days Call for an ambulance or go to the emergency room if you: 1. Have trouble breathing 2. Cannot control your saliva (drooling) due to difficulty swallowing 3. Have swelling of the neck or tongue 4. Cannot move your neck or have trouble opening your mouth Nasal congestion 0116313 0 R09.81 COMPREHENS ANGELICA DIFFERENTI AL DIAGNOSES/ MULTIPLE ETIOLOGIES CONSIDERED AND DISCUSSED WITH PATIENT... . USE OF RECOMMENDE D AND/OR PRESENTLY USED ACUTE/MAIN TENANCE OTC MEDICATION S STRESSED AND DISCUSSED IN DETAIL... Productive cough 8535718 5 R05 COMPREHENS ANGELICA DIFFERENTI AL DIAGNOSES/ MULTIPLE ETIOLOGIES CONSIDERED AND DISCUSSED WITH PATIENT... . IMAGING RESULTS AND IMPLICATIO NS CAREFULLY DISCUSSED. ... Persistent cough 7854866 02 R05 COMPREHENS ANGELICA DIFFERENTI AL DIAGNOSES/ MULTIPLE ETIOLOGIES CONSIDERED AND DISCUSSED WITH PATIENT... . DOSING, BENEFITS, CONTRAINDI CATIONS/CA UTIONS, ADVERSE REACTIONS, POSSIBLE DRUG INTERACTIO NS, AND SAFETY/MON ITORING INFO ALL DISCUSSED WITH PATIENT AND PATIENT UNDERSTAND S AND AGREES TO START MEDICATION (S) PRESCRIBED . [id number] Alecia Cortes PA-C [facility] [address] [facility] [place] [address] 02/24/2019 15:39:24 03/05/2019 12:08:37 Nasal congestion 23113306 R09.81 PND noted on exam. Flonase qhs. Pt voiced understand ing. Cough 64669737 R05 CXR as noted. Will give benzonatat e to use prn for cough. PT voiced understand ing . Community acquired pneumonia 844109390 J18.9 CXR left lingular infiltrate noted. Will place on abx. Advised to RTC for new or worsening sxs. [id number] Alecia Cortes PA-C [facility] [address] [facility] [place] [address] 12/22/2019 14:24:48 12/22/2019 15:51:18 Swelling / lump finding 861146077 R22.9 WILL ORDER U/S TO FURTHER ASSESS. PT/MALCOLM Kapadia VOICED UNDERSTAND ING. [id number] Alecia Cortes PA-C [facility] [address] [facility] [place] [address] 12/30/2019 09:43:03 01/08/2020 09:33:03 Swelling / lump finding 197672224 R22.9 U/S SHOWS A 6 X 4 MM MASS CONSISTENT WITH SMALL LYMPH NODE. WILL RE-CHECK IN 1 MONTH. PT VOICED UNDERSTAND ING. [id number] Alecia Cortes PA-C [facility] [address] [facility] [place] [address] 01/21/2020 09:04:33 02/02/2020 18:22:19 Adult health examination 382615140 Z00.00 Screening for malignant neoplasm of breast 683087278 Z12.31 Screening for malignant neoplasm of colon 732174041 Z12.11 Completed in 01/2017; advised to repeat in 3 years due to colon polyp. Screening for cardiovascular system disease 564341786 Z13.6 EKG SHOWS 1ST DEGREE AV BLOCK. CURRENTLY BEING MANAGED BY DR. GODOY. Mixed hyperlipidemia 267 643248 E78.2 Controlled . TC: 119 from 183; HDL: 51 from 47; Trigs: 71 from 85; LDL: 53 from 118. Advised to continue atorvastat in. Managed by Dr. Godoy. Essential hypertension 99659995 I10 Controlled . Not needing refills at this time. Impaired f asting glycemia 069699931 R73.01 Fasting glucose: 106 from 101. HbA1c: 6.3% from 5.6%. Educated on low sugar/carb /starch diet and exercise. Will recheck in 3 months. Pt/malcolm kapadia voiced understand ing and are in agreement to tx plan. Prediabetes 148946447 R7 3.03 As noted above. Health Concerns Section Related Observation LastModified by Organization Detai ls LastModified Time None Recorded Concern Status LastModified by Organization Details LastModified Time None Recorded Advance Directives Directive N: Payers Encounter Date Sequence Insurance Name Policy Number Policy Fenton Covered Member ID Fenton Member ID Guarantor Name 01/29/2019 1 [place] [id number] [place] [id number] 01/29/2019 2 *SELF PAY* Rocha LI 02/24/2019 1 [place] [id number] [employer] LI [id number] [place] 02/24/2019 2 *SELF PAY* Rocha LI 12/22/2019 1 [place] [id number] [employer] LI [id number] 12/22/2019 2 *SELF PAY* Rocha LI 12/30/2019 1 [place] [id number] [employer] LI [id number] [place] 12/30/2019 2 *SELF PAY* Rocha LI 01/21/2020 1 [place] [id number] A[employer] LI [id number] 01/21/2020 2 *SELF PAY* Rocha LI Notes Date Note Type Note Provider Name and Address Organization Details Recorded Time 01/30/20 19 text/ht ml CoughReported bypatient.Severity:worsening; moderate Duration:constant; symptoms lasting over 2 weeks Timing:worse; gradual Context:non-smoker Associated Symptoms:no fever; no chills; no chest pain; no heartburn; no nausea; no vomiting; no edema; no agitation; no wheezing; no post nasal drip Octavio Jennings MD [address] [place], [address], [facility] 04/01/2019 13:38:04 02/25/20 19 text/ht ml CoughReported bypatient.Severity:worsening; moderate Duration:constant; symptoms lasting over 2 weeks Timing:worse; gradual Context:non-smoker Associated Symptoms:no fever; no chills; no chest pain; no heartburn; no nausea; no vomiting; no edema; no agitation; no wheezing; no post nasal drip Alecia Cortes PA-C [address] [place], [address], [facility] 03/06/2019 18:00:45 12/22/19 20 text/ht ml Enlarged Lymph NodeReported bypatient.Location:right; abdominal Duration:present <1 month (2 WEEKS) Identified:patient identified Associated Symptoms:no fever; no involuntary weight loss; no night sweats; no hoarseness; no difficulty swallowing; no difficulty breathing; no palpitations; no fatigue; normal mood; no generalized pain; no abdominal pain [place]APUB[place] Alecia Cortes PA-C [address] [place], [address], [facility] 12/22/2019 15:01:44 12/30/19 20 text/ht ml Enlarged Lymph NodeReported bypatient.Location:right; abdominal Duration:present <1 month (2 WEEKS) Identified:patient identified Associated Symptoms:no fever; no involuntary weight loss; no night sweats; no hoarseness; no difficulty swallowing; no difficulty breathing; no palpitations; no fatigue; normal mood; no generalized pain; no abdominal pain PT PRESENTS TO CLINIC TO F/U ON ULTRASOUND RESULTS. U/S SHOWS 6 X 4 MM MASS THAT IS CONSISTENT WITH A SMALL LYMPH NODE. PT REPORTS IT IS ONLY TENDER WHEN SHE PUSHES ON IT. DENIES ANY CHANGES IN SIZE. DENIES ANY ABDOMINAL PAIN, FEVERS, CHILLS, NAUSEA, OR VOMITING. DENIES ANY DYSURIA, HEMATURIA, OR POLYURIA. DENIES ANY OTHER PROBLEMS OR CONCERNS AT THIS TIME. Alecia Cortes PA-C [address] [facility], [place], [address], [facility] 01/08/2020 08:33:54 01/21/20 20 text/ht ml Care Management - HypertensionReported bypatient.Self Care:not under emotional stress Severity:symptoms are improving; does not interfere with daily activities Associated Symptoms:no dizziness; no lightheadedness; no chest pain; no shortness of breath; no palpitations; no edema; no calf muscle cramps; no blurred vision; no confusion; no headaches; no fatigue reported medications(normal) currently taking medication: current medication is helpingHyperlipidemiaReported bypatient.Control:usually well controlled; improving; at goal Current Therapy:last cholesterol level: 119; last LDL level: 53; last triglyceride level: 71; last HDL level: 51; last non HDL level: 68 Compliance:compliant; compliant with diet; exercises Complications:no coronary artery disease; no peripheral artery disease; no cardiovascular disease CPE/LAB REVIEW. Alecia Cortes PA-C [address] [facility], [place], [address], [facility] 01/27/2020 17:01:23 OBGyn Episode No OBEpisode recorded.
== END 2025-03-04 12:28 | disposition home or self-care (01) ==
LOC: HO.LAB 12:27
PROVIDERS: PCP Internal Medicine; Visit Provider Internal Medicine Endocrinology, Diabetes & Metabolism
DX: M81.0 Age-related osteoporosis without current pathological fracture (principal)
CPT/HCPCS: 36415; 82306

== ENCOUNTER 2025-03-10 09:06 | Outpatient (AMB) | payer OTHER, SELFPAY ==
--- NOTE | 2025-03-10 09:16 | MHC.OFFVIS ---
Vital Signs 03/10/25 09:18 Height 5 ft 1.22 in Weight 113 lb BMI 21.2 BP 106/70 Blood Pressure Location Lt brachial Position Sitting Pulse 63 Pulse Source Pulse Oximeter Pulse Oximetry (%) 98 Oxygen Delivery Method Room Air Intake Visit Reasons: Osteoporosis Intake Note: Patient presents today for Osteoporosis. Accompanied by: Daughter Allergies Iodine and Iodide Containing Produc Adverse Reaction (Mild, Verified 03/10/25 09:19) Hives Medication List - Last Reconciled 03/10/25 by Rony Jimenez MD blood pressure monitor check bp daily and as needed for feeling off or headache loratadine (Claritin) 10 mg PO DAILY losartan 100 mg PO DAILY melatonin 5 mg PO BEDTIME PRN HPI Comments Details: 59 YO Female with is seen in consultation at the request of PCP for Osteoporosis. First diagnosed in 10 yrs .Never saw specialist before Never Received treatment in the past . No history of pathologic fracture or ONJ. Has ? servings of dietary calcium per day . Takes Calcium supplement 1800 mg daily in divided doses. Takes 2000 IU of Vitamin D daily. Denies ever using PPI, anticoagulant, antiepileptic or glucocorticoid medication. 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 UTD on dental cleanings and sees dentist every 6 months. No planned upcoming dental work or extractions. DXA dated 10/08/24: FINDINGS: LEFT FEMUR, NECK: BMD 0.733 g/cm2, Z-score -0.6, T-score -2.2, osteopenia. LEFT FEMUR, TOTAL: BMD 0.787 g/cm2, Z-score -0.5, T-score -1.7, osteopenia. AP SPINE L1-L4: BMD 0.846 g/cm2, Z-score -1.1, T-score -2.8, osteoporosis. IDENTIFIED RISK FACTORS: Bilateral ovariectomy, early menopause, secondary osteoporosis, height loss, hysterectomy, osteoporosis. HISTORY OF FRACTURE: None listed. MEDICATIONS: Calcium, vitamin D. MM/XR DEXA axial skeleton IMPRESSION: 1. DIAGNOSIS: Osteoporosis based on the lowest T-score value of -2.8 in the lumbar spine applying World Health Organization criteria. Labs: Secondary workup negative except for increased vitamin-D>100. Patient currently on several vitamin D3 including Viactiv with vitamin-D 3 and calcium citrate with 800 IU of vitamin D3 as well as 5000 IU of vitamin D3 per day The patient is a 59-year-old female presenting with hypervitaminosis D and osteoporosis. She has been on excessive vitamin D supplementation, with her levels recently measured at 107 ng/mL. For her osteoporosis, although the bone density is low, her age presents a decision-making challenge regarding long-term medication due to her planned trip to [place], where she cannot be effectively monitored. - Vitamin D 5000 IU daily ? recent high levels causing hypervitaminosis D - Additional supplement with 800 IU vitamin D ? also contributed to high levels - Calcium supplements ? compliant, within normal intake levels PFSH Medical History HTN (hypertension) Surgical History Hx of colonoscopy Social History Housing: House Alcohol intake: former Patient Tobacco Use Status: Never used Tobacco e-Cigarette/Vaping Use: Never Used service: No Current occupational status: retired Current occupational exposures/hazards: No Cognitive needs: No Hearing needs: No Vision needs: No Assessment & Plan Assessment & Plan (1) Osteoporosis: Code(s): M81.0 - Age-related osteoporosis without current pathological fracture Category: Medical Plan: This is a 59-year-old female with a history of osteoporosis. Secondary workup negative except for increased 25- D Plan is to decrease vitamin D3 to . Because of patient's young age and high risk for fracture, would consider using an anabolic agent like Tymlos or Forteo initially proceeded by an anti resorptive agent like a bisphosphonate for will talk to patient about this 1. Hypervitaminosis D The patient will stop taking the 5000 IU vitamin D supplement and maintain her calcium intake. A follow-up serum vitamin D test will be performed in six months. 2. Osteoporosis Medication initiation is deferred due to patient?s travel plans. Injectable therapies and other long-term management will be reconsidered upon her return. The patient had an opportunity to ask questions regarding treatment plan. I thoroughly discussed the current state of hypervitaminosis D due to high supplementation levels and instructed the patient on which supplements to discontinue. We reviewed the implications of her osteoporosis diagnosis, considering her upcoming travel to [place]. The potential benefits of initiating injectable anabolic therapy upon her return were explained, though concerns about monitoring abroad were noted. The patient verbalized understanding of the plans and agreed to follow up once she is back. - Stop taking the vitamin D 5000 IU supplement immediately. - Continue with calcium supplement as per previous instructions. - Repeat vitamin D levels in six months following your return from [place]. - Discuss osteoporosis treatment options further during your next visit. - The patient expressed understanding and agreement with the above treatment plan. Patient was informed and verbally consented to the use of an ambient scribe for clinic note documentation during this visit. Orders: Orders Vitamin D 25-OH Total 6 Months M81.0 - Age-related osteoporosis without current pathological fracture Coding Level of Care Code Est Pt Level 3 (52282) Diagnoses Osteoporosis M81.0
[2025-03-10 09:18] VITALS: BP 106/70; PULSE 63; O2SAT 98; BMI 21.2
--- OUTSIDE RECORDS SUMMARY | 2025-03-10 10:01 | XMS_ITS | Data Portability ---
Author Organization [facility], 2- Admin Address [address] [place] [id number] Care Team Providers Care License Examiner Name Role Phone [facility] [...] to follow-up before her departure back to [place] on March 18. Not available 02/28/2018 15:26:16 Plan of Treatment Reminders Order Date Submit Date Provider Last Modified By Organization Details Last Modified Time Details Appointments None recorded. Lab None recorded. Referral None recorded. Procedures nerve conduction study/EMG, lower extremity (PROC) - Bilateral lower extremity EMG / NCV / please schedule moy she is leaving for [place] in 2 weeks / tls 2017 018 [email or web address] Not available 8 07:43:50 Surgeries None recorded. Imaging MRI, lumbar spine, w/o contrast [address] [facility], [address], [place], [address], 8 14:47:40 XR, lumbar spine 2017 018 [email or web address] [facility] [497], [address], [place], [address], 8 15:42:20 Medication Orders gabapentin 300 mg capsule 2017 018 [address] [facility] [address], [address] [facility], [place], [address], 8 15:59:32 Mobic 15 mg tablet 2017 018 [address] [facility] [address], [address] [facility], [place], [address], 8 15:59:32 Patient Targets Encounter Date Encounter [...] By Organization Details Last Modified Time 01/24/2018 [id number] back care and preventing injuries: care instructions Not available 01/24/2018 14:47:15 getting back to normal after low back pain: care instructions Not available 01/24/2018 14:47:15 learning about relief for back pain Not available 01/24/2018 14:47:15 Reason for Referral None Reported. Results Created Date Observation Date Name Description Value Unit Range Abnormal Flag Note LastModifiedBy Organization Detail LastModifiedTime 01/07/20 18 01/07/2018 XR, knee StudyI [facility] eUID=1 .2 6.9125 .2.220 [id number] 92308. [id number] 88766. [id number] 6 [email or web address] [facility] [497] [address], [place], [address], 01/15/2018 13:10:27 01/25/20 18 01/24/2018 XR, lumba r spine StudyI [facility] eUID=1 .2 6.9125 .2.220 [id number] 18531. 376454 74761. 341234 2 INTERFACE [facility] [497] [address], [place], [address], 01/24/2018 15:04:36 02/12/20 18 02/11/2018 MRI, lumba r spine , w/o contr ast No observ ation record ed. [email or web address] [address], [place], [address], 02/27/2018 09:42:14 Result Notes None recorded. Procedures Surgical History Date Name Laterality Status Provider Name and Address Organization Details Recorded Time 8 20885: Therapeutic Exercise [facility] 02/05/2018 13:23:06 8 24189: Therapeutic Activities completed Nicki [facility] - [facility] 02/05/2018 13:21:52 8 01334: Therapeutic Exercise completed Nicki [facility] - [facility] 01/31/2018 10:05:52 8 64442: Therapeutic Activities completed Nicki [facility] - [facility] 01/31/2018 10:05:42 8 63570: Therapeutic Exercise completed [facility] - [facility] 01/24/2018 09:26:37 8 34307: Therapeutic Activities completed Nicki [facility] - [facility] 01/24/2018 09:26:19 8 48650: Therapeutic Exercise completed Nicki [facility] - [facility] 01/17/2018 12:10:34 8 57523 PT eval ? moderate complexity [facility] 01/16/2018 08:44:23 8 44293: Therapeutic Exercise completed [facility] - [facility] 01/16/2018 08:54:34 Imaging Results Imaging Date Name Status LastModified by Organiz ation Details LastModified Time 01/07/2018 XR, knee completed [email or web address] [facility] [4 [id number]] [address], [place], [address], 01/15/2018 13:10:27 01/24/2018 XR, lumbar spine completed INTERFACE [facility] [497] [address], [place], [address], 01/24/2018 15:04:36 02/11/2018 MRI, lumbar spine, w/o contrast completed [address] [facility] [address], [place], [address], 02/27/2018 09:42:14 Procedure Notes None recorded. Medical [...] Updated DateTime 01/24/2018 152.4 cm 22.1 kg/m2 33923.94 g Debra Maravilla [place] [facility] 01/24/2018 14:30:10 Date Recorded Body height Body mass index (BMI) Body weight Provider Name and Address Organization Details Last Updated DateTime 02/28/2018 152.4 cm 22.1 kg/m2 10197.94 g [employer] [place] [facility] 02/28/2018 14:33:31 Social History Question Answer Notes LastModified by Organizat ion Details LastModified Time Tobacco Smoking Status Never Smoker Jimmy Corona II, PA-C [address] [place], [address], [facility] 01/07/2018 09:43:38 Do You Have [...] 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 Treatment plan discussed with verbal understand ing of same. Patient provided a diagnostic and potentiall y therapeuti c corticoste riod injection to the knee. Follow up will be in 6 weeks, sooner if worsening. All questions answered and encouraged . Patient agrees with treatment plan. [id number] Nicki Childers 2-PT-Cameron [facility] [address] [address] 01/15/2018 09:00:05 01/15/2018 10:26:04 Pain in left knee [id number] 77749 M25.562 Low back pain 236948385 M54.5 Abnormal posture 8280078 2 R29.3 [id number] Nicki Childers [facility] [address] [address] 01/17/2018 09:26:50 01/17/2018 10:51:39 Pain in left knee 0949715000 14516 M25.562 Low back pain 737100097 M54.5 Abnormal posture 9997799 2 R29.3 [id number] Nicki Childers 2-PT-[facility] [address] [address] 01/24/2018 08:25:07 01/24/2018 09:19:18 Pain in left knee 4374461284 62184 M25.562 Low back pain 083767415 M54.5 Abnormal posture 1953610 2 R29.3 [id number] Ana Rosa Bowers PA-C 2-O-[facility] [address] [address] 01/24/2018 14:25:54 01/24/2018 15:42:19 Low back pain 136128091 M54.5 Lumbar radiculopathy 128 814340 M54.16 [id number] Nicki Childers 2-PT-Cameron [facility] [address] [address] 01/31/2018 09:14:08 01/31/2018 11:29:53 Pain in left knee 3687861893 15157 M25.562 Low back pain 191336445 M54.5 Abnormal posture 8199735 2 R29.3 [id number] Nicki Childers [facility] [address] [address] 02/05/2018 09:37:29 02/05/2018 10:21:20 Pain in left knee 0854005449 94844 M25.562 Low back pain 240848673 M54.5 Abnormal posture 5954892 2 R29.3 [id number] Ana Rosa Bowers PA-C 2-O-[place] [address] [address] 02/28/2018 14:24:05 02/28/2018 15:15:27 Lumbar radiculopathy 923428942 M54.16 Health Concerns Section Related Observation LastModified by Organization Detai ls LastModified Time None Recorded Concern Status LastModified by Organization Details LastModified Time None Recorded Advance Directives Directive N: Payers Encounter Date Sequence Insurance Name Policy Number Policy Fenton Covered Member ID Fenton Member ID Guarantor Name 01/24/2018 1 [place] [id number] Micaela MORALES [id number] 01/24/2018 1 [place] [id number] Micaela LI [id number] 01/31/2018 1 [place] [id number] Micaela LI [id number] 02/05/2018 1 [place] [id number] Micaela LI [id number] 02/28/2018 1 [place] [id number] Micaela MORALES [id number] Notes Date Note Type [...] Rosa Bowers PA-C [address] [place], [address], [facility] 01/25/2018 16:31:12 02/28/2018 text/html Mrs. Morales Is a pleasant 52-year-old female following off to review her MRI of the lumbar spine. Her daughter accompanies her to [facility]. Patient continues to have numbness and tingling in a stocking distribution from the knee down. She reports the pain to be most uncomfortable on the ventral aspect of the bilateral feet. She also has bilateral hip and buttock pain. She denies pain throughout the anterior and posterior thigh. MRI of the lumbar spine was performed at [facility] on February 11, 2018. There [...] incontinence. Ana Rosa Bowers PA-C [address] [place], [address], [facility] 02/28/2018 15:26:50 OBGyn Episode No OBEpisode recorded.
== END 2025-03-10 09:37 | disposition home or self-care (01) ==
LOC: HO.ENCR 09:14
PROVIDERS: PCP Internal Medicine; Visit Provider Internal Medicine Endocrinology, Diabetes & Metabolism
DX: M81.0 Age-related osteoporosis without current pathological fracture (principal)
CPT/HCPCS: 99213

== ENCOUNTER → 2025-03-10 09:06 | Outpatient (BNVA) | payer OTHER, SELFPAY | PROVIDERS: PCP Internal Medicine; Visit Provider Internal Medicine Endocrinology, Diabetes & Metabolism | DX: M81.0 Age-related osteoporosis without current pathological fracture (principal) | CPT/HCPCS: 99212 ==

== ENCOUNTER 2025-09-30 11:07 | Outpatient (AMB) | payer OTHER, SELFPAY ==
--- NOTE | 2025-09-30 11:10 | A.OFFVIS_ITS ---
Vital Signs 09/30/25 11:13 Height 5 ft 1.22 in Weight 117 lb 11.629 oz BMI 22.1 BP 130/78 Blood Pressure Location Rt brachial Position Sitting Pulse 66 Pulse Source Pulse Oximeter Pulse Oximetry (%) 95 Oxygen Delivery Method Room Air Intake Visit Reasons: f/u osteoporosis Intake Note: Patient presents today for Osteoporosis. Chyron Operator Required: Yes Chyron Operator Language: Mandarin Slovak Chyron Operator Services: Chyron Operator Offered & Declined Accompanied by: Daughter Allergies Iodine and Iodide Containing Produc Adverse Reaction (Mild, Verified 09/30/25 11:14) Hives Medication List - Last Reconciled 09/30/25 by Rony Jimenez MD blood pressure monitor check bp daily and as needed for feeling off or headache loratadine (Claritin) 10 mg PO DAILY losartan 100 mg PO DAILY melatonin 5 mg PO BEDTIME PRN HPI Comments Details: 60 YO Female with is seen in consultation at the request of PCP for Osteoporosis. First diagnosed in 10 yrs .Never saw specialist before Never Received treatment in the past . No history of pathologic fracture or ONJ. Has ? servings of dietary calcium per day . Takes Calcium supplement 1800 mg daily in divided doses. Takes 2000 IU of Vitamin D daily. Denies ever using PPI, anticoagulant, antiepileptic or glucocorticoid medication. 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 UTD on dental cleanings and sees dentist every 6 months. No planned upcoming dental work or extractions. DXA dated 10/08/24: FINDINGS: LEFT FEMUR, NECK: BMD 0.733 g/cm2, Z-score -0.6, T-score -2.2, osteopenia. LEFT FEMUR, TOTAL: BMD 0.787 g/cm2, Z-score -0.5, T-score -1.7, osteopenia. AP SPINE L1-L4: BMD 0.846 g/cm2, Z-score -1.1, T-score -2.8, osteoporosis. IDENTIFIED RISK FACTORS: Bilateral ovariectomy, early menopause, secondary osteoporosis, height loss, hysterectomy, osteoporosis. HISTORY OF FRACTURE: None listed. MEDICATIONS: Calcium, vitamin D. MM/XR DEXA axial skeleton IMPRESSION: 1. DIAGNOSIS: Osteoporosis based on the lowest T-score value of -2.8 in the lumbar spine applying World Health Organization criteria. Labs: Secondary workup negative except for increased vitamin-D>100. Patient currently on several vitamin D3 including Viactiv with vitamin-D 3 and calcium citrate with 800 IU of vitamin D3 as well as 5000 IU of vitamin D3 per day PFSH Medical History HTN (hypertension) Surgical History Hx of colonoscopy Social History Housing: House Alcohol intake: former Patient Tobacco Use Status: Never used Tobacco e-Cigarette/Vaping Use: Never Used service: No Current occupational status: retired Current occupational exposures/hazards: No Cognitive needs: No Hearing needs: No Vision needs: No Physical Exam Vital Signs: Last Vital Signs Pulse 66 09/30/25 11:13 BP 130/78 09/30/25 11:13 Pulse Ox 95 09/30/25 11:13 Oxygen Delivery Method Room Air 09/30/25 11:13 BMI result Body Mass Index 22.1 Assessment & Plan Assessment & Plan (1) Osteoporosis: Code(s): M81.0 - Age-related osteoporosis without current pathological fracture Category: Medical Plan: This is a 59-year-old female with a history of osteoporosis. Secondary workup negative except for increased 25- D. Vitamin-D dose was reduced. Plan is to recheck 25 hydroxy vitamin-D . Because of patient's young age and high risk for fracture, would consider using an anabolic agent like Tymlos or Forteo initially proceeded by an anti resorptive agent like a bisphosphonate for will talk to patient about this. After careful discussion, decided to start Tymlos 80 mcg q.d. for 18 months - Medications: New pen needle, diabetic (Comfort EZ Pen [place]) As directed injects once a day 100 ea 5RF abaloparatide (Tymlos) inject into abdomen; do not inject within 2 inches of belly button/navel; rotate sites 80 mcg (0.04 mL) subcut DAILY 1.56 mL 12RF Coding Level of Care Code Est Pt Level 3 (89983) Diagnoses Osteoporosis M81.0
[2025-09-30 11:13] VITALS: BP 130/78; PULSE 66; O2SAT 95; BMI 22.1
== END 2025-09-30 11:28 | disposition home or self-care (01) ==
LOC: HO.ENCR 11:08
PROVIDERS: PCP Internal Medicine; Visit Provider Internal Medicine Endocrinology, Diabetes & Metabolism
DX: M81.0 Age-related osteoporosis without current pathological fracture (principal)
CPT/HCPCS: 99213

== ENCOUNTER → 2025-09-30 11:07 | Outpatient (BNVA) | payer OTHER, SELFPAY | PROVIDERS: PCP Internal Medicine; Visit Provider Internal Medicine Endocrinology, Diabetes & Metabolism | DX: M81.0 Age-related osteoporosis without current pathological fracture (principal) | CPT/HCPCS: 99212 ==

== ENCOUNTER 2025-09-30 11:30 | Outpatient (REF) | payer OTHER, SELFPAY | END 2025-09-30 11:31 | disposition home or self-care (01) | LOC: HO.10HDL 11:30 | PROVIDERS: Visit Provider Internal Medicine Endocrinology, Diabetes & Metabolism | DX: M81.0 Age-related osteoporosis without current pathological fracture (principal) | CPT/HCPCS: 36415; 82306 ==

== ENCOUNTER 2025-10-09 09:14 | Outpatient (AMB) | payer OTHER, SELFPAY ==
--- NOTE | 2025-10-09 09:22 | A.OFFPC_ITS ---
Vital Signs 10/09/25 09:24 10/09/25 09:29 Height 5 ft 1.22 in Weight 115 lb 8 oz BMI 21.7 BP 142/84 H 144/84 H Blood Pressure Location Rt brachial Rt brachial Position Sitting Sitting Respiration 12 Pulse 58 Pulse Source Pulse Oximeter Temp 97.7 F Temp Source Oral Pulse Oximetry (%) 95 Oxygen Delivery Method Room Air Intake Visit Reasons: PE Intake Note: Physical Ice Skating Teacher Required: No Ice Skating Teacher Name: Ice Skating Teacher declined Accompanied by: Daughter Allergies Iodine and Iodide Containing Produc Adverse Reaction (Mild, Verified 10/09/25 09:23) Hives Tobacco use date assessed: 10/09/25 Dental Screening Dental Screen Date: 10/09/25 Did you have a dental visit in the last 12 months?: Yes Did you have a dental problem in the last 6 months where you did not have access to dental care?: No Was dental information given to patient?: Patient has dentist HPI HPI Comments History of Present Illness Details 60-year-old Mandarin speaking female, ac companied by her daughter, presents for complete physical exam. 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 Bilateral knee, thumb pain. Remotely saw arthritis doctor. History of herniated lumbar disc. Was told she had arthritis. Pending appt with rheumatology CV: She is on losartan 100 mg daily. Blood pressure has been running high. Denies chest pain, shortness of breath. Had prior cardiology consult and normal stress test GERD: Quiet. Previously on omeprazole Her eyes have been bothering her, strained, discomfort, dry. Has not had recent eye exam Her last colonoscopy was with [facility] on 06/21/2023 with the following results: Impression: 1. Normal colon mucosa 2. Total of 2 polyps removed from sigmoi d colon. 3. Internal hemorrhoids Recommendations: - Follow path results. - Repeat colonoscopy in 7-10 years if po lyps are adenomas. Flu shot today Mammo 10/08/24 Pap is overdue. She was referred last visit ROS see HPI PHYSICAL EXAM: GENERAL: Alert and oriented x 3. NAD EYES: EOMI. Anicteric. HENT: Moist mucous membranes. No scleral icterus. No cervical lymphadenopathy. LUNGS: Clear to auscultation bilaterally. CARDIOVASCULAR: Regular rate and rhythm. No murmur. No JVD. ABDOMEN: Soft, non-tender +bs EXTREMITIES: No edema. Non-tender. SKIN: No rashes or lesions. Warm. NEUROLOGIC: No focal neurological deficits. CN II-XII grossly intact PSYCHIATRIC: Cooperative. Appropriate mood and affect [facility] Medical History HTN (hypertension) Surgical History Hx of colonoscopy Social History (Updated 10/09/25 @ 09:30 by Lisa Noguera CMA) Housing: House Alcohol intake: former Patient Tobacco Use Status: Never used Tobacco e-Cigarette/Vaping Use: Never Used service: No Current occupational status: retired Current occupational exposures/hazards: No Cognitive needs: No Hearing needs: No Vision needs: No Questionnaire PHQ-9 Over the last 2 weeks, how often have you been bothered by any of the following problems? 1. Little interest or pleasure in doing things: not at all 2. Feeling down, depressed, or hopeless: not at all 3. Trouble falling or staying asleep, or sleeping too much: more than half the days 4. Feeling tired or having little energy: not at all 5. Poor appetite or overeating: not at all 6. Feeling bad about yourself - or that you are a failure or have let yourself or your family down: not at all 7. Trouble concentrating on things, such as reading the newspaper or watching television: more than half the days 8. Moving or speaking so slowly that other people could have noticed. Or the opposite - being so fidgety or restless that you have been moving around a lot more than usual: not at all 9. Thoughts that you would be better off or of hurting yourself in some way: not at all Total score: 4 Depression Screening Interpretation: Negative Depression Screening Done: Yes 29744 - PHQ-9 Billing: Yes Source: Developed by Drs. Rony Galan, Dunia Bailey, Ajay Richardson and colleagues, with an educational stefania from [employer]. Thrive Questionnaire Date Thrive assessed: 10/09/25 I am a: Patient What is your living situation today?: I have a steady place to live Within the past 12 months, did the food you bought not last and you didn't have the money to get more?: Never true Within the past 12 months, did you worry whether your food would run out before you got money to buy more?: Never true Do you have trouble paying for medicines?: No Do you have trouble getting transportation to medical appointments?: No Do you have trouble paying your heating and electricity bill?: No Do you have trouble taking care of your child, family member or friend?: No Do you have trouble with day-to-day activities such as bathing, preparing meals, shopping, managing finances, etc.?: No Are you currently unemployed and looking for a job?: No Are you interested in more education?: No Please select the resources that you would like help with: None Currently or been in a relationship where the following occur: No concerns reported THRIVE Score: 0 AUDIT C Alcohol Use Questionnaire (AUDIT-C) 1. How often do you have a drink containing alcohol?: Never 3. How often do you have six or more drinks on one occasion?: Never Total Score: 0 SAM-7 AMB Questionnaire SAM-7 Date SAM - 7 assessed: 10/09/25 Feeling nervous, anxious, or on edge: 0 = Not at all Not being able to stop or control worryin = Not at all Worrying too much about different things: 0 = Not at all Trouble relaxin = Not at all Being so restless that it is hard to sit still: 0 = Not at all Becoming easily annoyed or irritable: 0 = Not at all Feeling afraid as if something awful might happen: 0 = Not at all Total SAM-7 score (0-4 normal; 5-9 mild; 10-14 moderate; 15-21 severe): 0 Source: Developed by Drs. Rony Galan, Dunia Bailey, Ajay Richardson and colleagues, with an educational stefania from [employer]. SAM-7 Assessment Billing SAM-7 Assessment Tool: SAM-7 Assessment 00429 ACT Questionnaire In the past 4 weeks, how much of the time did your asthma keep you from getting as much done at work, school or at home?: None of the time During the past 4 weeks, how often did your asthma symptoms wake you up at night or earlier than usual in the morning?: Not at all During the past 4 weeks, how often have you had to use your rescue inhaler or nebulizer medication?: Not at all How would you rate your asthma control during the past 4 weeks?: Completely controlled ACT Interpretation: Negative Score: 20 Physical exam (Primary Care) Vital Signs: Last Vital Signs Temp 97.7 F 10/09/25 09:24 Pulse 58 10/09/25 09:24 Resp 12 10/09/25 09:24 BP 144/84 H 10/09/25 09:29 Pulse Ox 95 10/09/25 09:24 Oxygen Delivery Method Room Air 10/09/25 09:24 BMI result Body Mass Index 21.7 Tobacco/Smoking Status: Tobacco use Status Tobacco use date assessed 10/09/25 10/09/25 09:30 Patient Tobacco Use Status Never used Tobacco 10/09/25 09:30 e-Cigarette/Vaping Use Never Used 10/09/25 09:30 PHQ-9: PHQ-9 Score PHQ-9: Total score 4 10/09/25 09:32 Depression Screening Interpretation: Negative Thrive Assessment: Date of Thrive Assessment Date Thrive assessed 10/09/25 10/09/25 09:30 Currently or been in a relationship where the following occur: No concerns reported Coding Level of Care Code Est Pt Prev Care 40-64y(72371) Diagnoses Physical exam Z00.00 Primary hypertension I10 Hypertension type: primary hypertension Generalized arthritis M19.90 Eye strain H53.10 Additional Codes Asthma Control Questionnaire - ACT Interpretation: Negative ([id number]) SAM-7 Assessment Billing - SAM-7 Assessment Tool: SAM-7 Assessment 80237 ([id number]) PHQ-9 - 41548 - PHQ-9 Billing: Yes ([id number]) Assessment & Plan Assessment & Plan (1) Physical exam: Code(s): Z00.00 - Encounter for general adult medical examination without abnormal findings (2) HTN (hypertension): Code(s): I10 - Essential (primary) hypertension Category: Medical Qualifiers: Hypertension type: primary hypertension Qualified Code(s): I10 - Essential (primary) hypertension (3) Generalized arthritis: Code(s): M19.90 - Unspecified osteoarthritis, unspecified site Category: Medical (4) Eye strain: Code(s): H53.10 - Unspecified subjective visual disturbances Plan 60 year old for CPE Interval history reviewed Preventive measures for age discussed HTN-suboptimal control. Add amlodipine 2.5mg daily Mammo ordered. Colon cancer utd Eye discomfort-referral placed to ophtho Orders: Orders Thyroid Stimulating Hormone Today I10 - Essential (primary) hypertension, M25.50 - Pain in unspecified joint, Z13.0 - Encounter for screening for diseases of the blood and blood-forming organs and certain disorders involving the immune mechanism, Z13.220 - Encounter for screening for lipoid disorders Comprehensive Met. Panel Today I10 - Essential (primary) hypertension, M25.50 - Pain in unspecified joint, Z13.0 - Encounter for screening for diseases of the blood and blood-forming organs and certain disorders involving the immune mechanism, Z13.220 - Encounter for screening for lipoid disorders Hemoglobin A1c Today I10 - Essential (primary) hypertension, M25.50 - Pain in unspecified joint, Z13.0 - Encounter for screening for diseases of the blood and blood-forming organs and certain disorders involving the immune mechanism, Z13.220 - Encounter for screening for lipoid disorders Lipid Panel Today I10 - Essential (primary) hypertension, M25.50 - Pain in unspecified joint, Z13.0 - Encounter for screening for diseases of the blood and blood-forming organs and certain disorders involving the immune mechanism, Z13.220 - Encounter for screening for lipoid disorders MM tomosynthesis screening BI Today Z12.31 - Encounter for screening mammogram for malignant neoplasm of breast Referrals Ophthalmology Referral H53.2 - Diplopia, H57.10 - Ocular pain, unspecified eye Medications: New amlodipine 2.5 mg PO DAILY 90 tabs 3RF
[2025-10-09 09:24] VITALS: BP 142/84; PULSE 58; RESP 12; TEMP 36.5; O2SAT 95; BMI 21.7
[2025-10-09 09:29] VITALS: BP 144/84
== END 2025-10-09 09:58 | disposition home or self-care (01) ==
LOC: HO.HMCFM 09:15
PROVIDERS: PCP Internal Medicine; Visit Provider Internal Medicine
DX: Z00.00 Encounter for general adult medical examination without abnormal findings (principal); I10 Essential (primary) hypertension; M19.90 Unspecified osteoarthritis, unspecified site; H53.10 Unspecified subjective visual disturbances

== ENCOUNTER 2025-10-09 09:14 | Outpatient (REF) | payer OTHER, SELFPAY ==
[2025-10-09 12:56] LABS: Alanine Aminotransferase 66 U/L (0-31); Albumin Level 4.5 g/dL (3.5-5.0); Alkaline Phosphatase 51 U/L (39-117); Anion Gap 13 (12-20); Aspartate Amino Transferase 46 U/L (5-31); Blood Urea Nitrogen 15 mg/dL (9-16); Calcium 9.5 mg/dL (8.4-10.2); Carbon Dioxide 27 mmol/L (22-29); Chloride 107 mmol/L (96-108); Cholesterol 182 mg/dL (<200); Estimated Glomerular Filt Rate > 60; HDL Cholesterol 49 mg/dL (>40); Potassium 3.8 mmol/L (3.3-5.1); Sodium 143 mmol/L (135-145); Total Protein 7.1 g/dL (6.5-8.0); Triglycerides 85 mg/dL (<150)
[2025-10-09 13:12] LABS: Thyroid Stimulating Hormone 1.46 uIU/mL (0.32-4.0)
== END 2025-10-09 09:15 | disposition home or self-care (01) ==
LOC: HO.WFDLDS 09:14
PROVIDERS: PCP Internal Medicine; Visit Provider Internal Medicine
DX: Z00.00 Encounter for general adult medical examination without abnormal findings (principal); Z13.220 Encounter for screening for lipoid disorders; Z13.0 Encounter for screening for diseases of the blood and blood-forming organs and certain disorders involving the immune mechanism; I10 Essential (primary) hypertension; M25.50 Pain in unspecified joint; M19.90 Unspecified osteoarthritis, unspecified site; H53.10 Unspecified subjective visual disturbances
CPT/HCPCS: 36415; 80053; 80061; 83036; 84443; 96127; 96160; 99396

== ENCOUNTER 2025-10-13 09:01 | Outpatient (AMB) | payer OTHER, SELFPAY ==
--- NOTE | 2025-10-13 09:05 | A.OFFVIS_ITS ---
Vital Signs 10/13/25 09:17 Height 5 ft 1.22 in Weight 117 lb 1.047 oz BMI 22.0 BP 134/80 Blood Pressure Location Lt brachial Position Sitting Pulse 59 Pulse Source Pulse Oximeter Pulse Oximetry (%) 97 Oxygen Delivery Method Room Air Intake Visit Reasons: OA Intake Note: New patient presents for OA. Field Installation Technician Required: Yes Field Installation Technician Language: Occitan - Simplified Field Installation Technician Services: Field Installation Technician Present Field Installation Technician Name: Shira [id number] Information Interpreted: non-clinical & clinical Allergies Iodine and Iodide Containing Produc Adverse Reaction (Mild, Verified 10/13/25 09:16) Hives Medication List - Last Reconciled 10/13/25 by Zahra France MD amlodipine 2.5 mg PO DAILY blood pressure monitor check bp daily and as needed for feeling off or headache losartan 100 mg PO DAILY pen needle, diabetic (Comfort EZ Pen [place]) As directed injects once a day HPI Comments Details: Patient is a 60 year old female with hypertension, GERD, here today for evaluation of polyarthralgias Patient is complaining of bilateral knee pain, bilateral hand pain (especially at the base of the thumb) and leg cramping This has been going on for about 10 years Does not get AM stiffness, but complaining of numbness to the bilateral legs No known family history, does not that her father complained of knee pain but he did not seek medical attention so there was no confirmation of diagnosis PFSH Medical History HTN (hypertension) Surgical History Hx of colonoscopy Social History Housing: House Alcohol intake: former Patient Tobacco Use Status: Never used Tobacco e-Cigarette/Vaping Use: Never Used service: No Current occupational status: retired Current occupational exposures/hazards: No Cognitive needs: No Hearing needs: No Vision needs: No Review of Systems Narrative Review of Systems Constitutional: Denies fever, chills, weight loss ENT: Denies vision changes, eye pain or eye redness, dental caries, dry mouth GI: Denies nausea, vomiting, diarrhea, abdominal pain, change in BM Pulm: Denies SOB, MELENDEZ, hemoptysis, wheezing Cards: Denies chest pain, palpitations Skin: Denies Raynaud's, rash, nail changes, photosensitivity, REAL ESTATE ASSET MANAGER: Denies headaches, weakness, paresthesias, recurrent falls MSK: as per HPI All other systems reviewed and are unremarkable except noted above Physical Exam Exam Exam: Vital signs reviewed Physical Examination CONSTITUITIONAL Patient alert and cooperative. Well appearing and in no apparent painful distress MSK Hands * Right Hand: Able to make a fist. No swelling or tenderness to palpation of the MCPs, PIPs or DIPs. * Left Hand: Able to make a fist. No swelling or tenderness to palpation of the MCPs, PIPs or DIPs. * Herbedens nodes noted bilaterally Wrists * Right Wrist: Full ROM to flexion and extension. No swelling or TTP * Left Wrist: Full ROM to flexion and extension. No swelling or TTP Elbows * Right Elbow: Full ROM. No swelling or TTP. No TTP of the medial epicondyle. No TTP of the lateral epicondyle * Left Elbow: Full ROM. No swelling or TTP. No TTP of the medial epicondyle. TTP of the lateral epicondyle Shoulders * Right shoulder: Full ROM. No swelling noted. No TTP of the AC joint. No TTP of the subacromial bursa. No TTP of the posterior shoulder * Left shoulder: Full ROM. No swelling noted. No TTP of the AC joint. No TTP of the subacromial bursa. No TTP of the posterior shoulder Knees * Right knee: Full ROM. No swelling noted. No TTP of the knee joint line. No TTP of pes anserine bursa * Left knee: Full ROM. No swelling noted. No TTP of the knee joint line. No TTP of pes anserine bursa. * Crepitations felt bilaterally Ankles * Right ankle: Good ankle dorsiflexion and plantar flexion. No swelling. No TTP of the ankle joint * Left ankle: Good ankle dorsiflexion and plantar flexion. No swelling. No TTP of the ankle joint Feet * Right foot: Negative squeeze test * Left foot: Negative squeeze test Tender points? * No tenderness to palpation of the bilateral trapezius, supraspinatus, anterior costochondral junctions, bilateral suboccipital muscle insertions SKIN No rashes Vital Signs: Last Vital Signs Pulse 59 10/13/25 09:17 BP 134/80 10/13/25 09:17 Pulse Ox 97 10/13/25 09:17 Oxygen Delivery Method Room Air 10/13/25 09:17 BMI result Body Mass Index 22.0 Results Reviewed Results Reviewed: Laboratory Tests 08/04/24 12/03/24 10/09/25 09:23 16:20 10:02 WBC 4.2 L RBC 4.23 Hgb 12.9 Hct 39.3 Plt Count 235 ESR 13 Sodium 143 Potassium 3.8 Chloride 107 Carbon Dioxide 27 BUN 15 Creatinine 0.64 AST 46 H ALT 66 H Assessment & Plan Assessment & Plan (1) Generalized osteoarthritis: Code(s): M15.9 - Polyosteoarthritis, unspecified Plan: #Polyarticular OA Patient is a 60-year-old female with polyarthralgias here today for evaluation. Exam and history consistent with polyarticular osteoarthritis. Had a long discussion using [employer] lang interpreter with patient and her daughter. Discussed the therapeutic options for osteoarthritis including topical diclofenac, and other therapeutic options including injection. Patient at this time would like to pursue non procedural interventions. Sent topical diclofenac to her pharmacy and advised on correct use. We will check x-rays of her knees since that is her most bothersome part at this time. No active follow up needed they can follow up PRN Plan - Topical diclofenac 1% (2) Osteoporosis: Comment: FINDINGS: LEFT FEMUR, NECK: BMD 0.733 g/cm2, Z-score -0.6, T-score -2.2, osteopenia. LEFT FEMUR, TOTAL: BMD 0.787 g/cm2, Z-score -0.5, T-score -1.7, osteopenia. AP SPINE L1-L4: BMD 0.846 g/cm2, Z-score -1.1, T-score -2.8, osteoporosis. Code(s): M81.0 - Age-related osteoporosis without current pathological fracture Category: Medical Qualifiers: Osteoporosis type: age-related Presence of current pathological fracture: without current pathological fracture Qualified Code(s): M81.0 - Age- related osteoporosis without current pathological fracture Plan: #Osteoporosis of the AP spine and Osteopenia of the left femur neck and total femur Follows with endo Plan I spent 45 minutes reviewing the record and labs, taking a history, examining the patient, discussing the treatment plan, ordering diagnostic work up and documenting in the medical record Orders: Orders XR knee LT 3V Today M15.9 - Polyosteoarthritis, unspecified, M17.9 - Osteoarthritis of knee, unspecified XR knee RT 3V Today M15.9 - Polyosteoarthritis, unspecified, M17.9 - Osteoarthritis of knee, unspecified Medications: New diclofenac sodium 1% (Arthritis Pain (diclofenac)) Bilateral knees 4 grams topical QID 100 grams 5RF M17.9 - Osteoarthritis of knee, unspecified Coding Level of Care Code New Pt Level 4 (46850) Diagnoses Generalized osteoarthritis M15.9 Age-related osteoporosis without current pathological fracture M81.0 Osteoporosis type: age-related Presence of current pathological fracture: without current pathological fracture
[2025-10-13 09:17] VITALS: BP 134/80; PULSE 59; O2SAT 97; BMI 22.0
== END 2025-10-13 09:55 | disposition home or self-care (01) ==
LOC: HO.RHES 09:02
PROVIDERS: PCP Internal Medicine; Visit Provider Student in an Organized Health Care Education/Training Program
DX: M15.9 Polyosteoarthritis, unspecified (principal); M81.0 Age-related osteoporosis without current pathological fracture
CPT/HCPCS: 99204

== ENCOUNTER → 2025-10-13 09:01 | Outpatient (BNVA) | payer OTHER, SELFPAY | PROVIDERS: PCP Internal Medicine; Visit Provider Student in an Organized Health Care Education/Training Program | DX: M17.0 Bilateral primary osteoarthritis of knee (principal) | CPT/HCPCS: 99202 ==